=== PATIENT | female | born 1950 | race Caucasian/White ===

== ENCOUNTER 2016-08-07 13:43 | Outpatient (CLI) ==
--- NOTE | 2016-08-07 14:13 | DI ---
EXAM: Radiographs, left knee HISTORY: Initial presentation for left knee trauma. COMPARISON: 03/05/2016. TECHNIQUE: Four views. FINDINGS: Plate screw fixation along the lateral aspect of the femoral diaphysis are incompletely i sylvester. No acute fracture or dislocation identified. Mild osteoarthritic changes are present. Soft tissues are unremarkable. Since the prior study, there has been no significant interval change. IMPRESSION: No fracture or dislocation.
--- NOTE | 2016-08-07 14:14 | DI ---
EXAM: Two views of the left femur HISTORY: Fall with previous internal fixation hardware. COMPARISON: Left femur x-ray 05/22/2015 FINDINGS: Left hip arthroplasty hardware is stable with no signs of hardware fracture loosening. In ternal fixation hardware in the mid left femur is unchanged with no hardware fracture or loosening. There is mild degenerative disease of the left knee. There is no cortical irregularity or displace d fracture. Soft tissues are unremarkable. IMPRESSION: No acute abnormality or displaced fracture of the left femur with left hip arthroplasty and distal internal fixation hardware in place.
--- NOTE | 2016-08-07 14:15 | DI ---
EXAM: Left hip two-view HISTORY: Pain in left hip COMPARISON: 01/20/2016 FINDINGS: Left total hip arthroplasty. No fracture or dislocation. Left main femoral ORIF, incomp letely imaged. Sclerosis bilateral sacroiliac joints. No focal soft tissue abnormality. Atheroscl erosis. IMPERSSION: 1. Left hip arthroplasty. No fracture or dislocation. 2. Sclerosis about the bilateral sacroiliac joints, suggestive of sacroiliitis.
== END 2016-08-07 13:44 | disposition home or self-care (01) ==
LOC: RAD 13:43
PROVIDERS: ATTEND Nurse Practitioner Family
DX: M25.552 Pain in left hip (principal); M25.562 Pain in left knee; M79.605 Pain in left leg; W19.XXXA Unspecified fall, initial encounter; Z96.642 Presence of left artificial hip joint

== ENCOUNTER 2016-08-20 11:14 | Outpatient (CLI) ==
[2016-08-20 14:28] LABS: ALBUMIN 3.6 g/dL (3.4-5.0); ALBUMIN/GLOBULIN RATIO 0.86; ANION GAP 17.6; BILIRUBIN,TOTAL 0.24 mg/dL (0.00-1.20); BUN/CREATININE RATIO 15.18; CALCIUM 10.2 mg/dL (8.2-10.2); CREATININE 0.79 mg/dL (0.60-1.30); POTASSIUM 4.6 mmol/L (3.5-5.10); TOTAL PROTEIN 7.8 g/dL (5.8-8.1)
[2016-08-21 07:43] LABS: RHEUMATOID ARTHRITIS FACTOR < 10.0 IU/mL (0.0-13.9)
[2016-08-21 12:15] LABS: ANTI-NUCLEAR ANTIBODY SCREEN Negative (Negative)
== END 2016-08-20 11:15 | disposition home or self-care (01) ==
LOC: LAB 11:14
PROVIDERS: ATTEND Nurse Practitioner Family
DX: M25.50 Pain in unspecified joint (principal); E11.9 Type 2 diabetes mellitus without complications; I10 Essential (primary) hypertension; E78.5 Hyperlipidemia, unspecified
CPT/HCPCS: 36415; 80053; 80061; 83036; 86038; 86430

== ENCOUNTER 2017-01-08 14:28 | Outpatient (CLI) ==
[2017-01-08 14:56] LABS: BILIRUBIN,URINE Negative (NEGATIVE); KETONES,URINE Negative (NEGATIVE); LEUKOCYTE ESTERASE ,URINE 1+ (NEGATIVE); NITRITE,URINE Negative (NEGATIVE); PROTEIN,URINE Negative (NEGATIVE); URINE, BLOOD Trace-intact (NEGATIVE)
[2017-01-08 15:04] LABS: ADD URINE MICROSCOPIC YES
[2017-01-08 15:16] LABS: FLU INTERNAL QC INTERNAL QC VALID; RAPID FLU A NEGATIVE (NEGATIVE); RAPID FLU B NEGATIVE (NEGATIVE)
[2017-01-08 15:26] LABS: ALBUMIN 3.7 g/dL (3.4-5.0); ALBUMIN/GLOBULIN RATIO 0.93; ANION GAP 12.8; BILIRUBIN,TOTAL 0.29 mg/dL (0.00-1.20); BUN/CREATININE RATIO 19.23; CALCIUM 10.2 mg/dL (8.2-10.2); CHOL/HDL RATIO 4.9 (4.5-5.5); CREATININE 1.04 mg/dL (0.60-1.30); POTASSIUM 4.8 mmol/L (3.5-5.10); TOTAL PROTEIN 7.7 g/dL (5.8-8.1)
[2017-01-09 12:29] VITALS: BMI 29.4
== END 2017-01-08 14:29 | disposition home or self-care (01) ==
LOC: LAB 14:28
PROVIDERS: ATTEND Nurse Practitioner Family
DX: E78.5 Hyperlipidemia, unspecified (principal); E78.1 Pure hyperglyceridemia; R81 Glycosuria; E11.9 Type 2 diabetes mellitus without complications; R05 Cough; R50.9 Fever, unspecified
CPT/HCPCS: 36415; 80053; 80061; 81001; 82043; 83036; 87086; 87651; 87804; 87880

== ENCOUNTER 2017-01-09 12:09 | Inpatient (IN) ==
[2017-01-09 12:29] VITALS: BMI 29.4
[2017-01-09] MEDS ORDERED: TYLENOL PO PRN (12:35)
[2017-01-09] MEDS ORDERED: FLEXERIL PO PRN (12:37)
[2017-01-09] MEDS ORDERED: HUMULIN R ONE (12:46)
[2017-01-09] MEDS: SODIUM CHLORIDE 1,000 ML IV SCH (12:51)
--- NOTE | 2017-01-09 14:12 | DI ---
EXAM: CHEST FRONTAL VIEW HISTORY: Coughing. COMPARISON: None FINDINGS: Heart size and mediastinum within normal limits. Lungs are free of infiltrate. No co nsolidation or pleural fluid. There is no pneumothorax or acute bony finding. IMPRESSION: Findings within normal limits.
[2017-01-09] MEDS: DUONEB NEB SCH ×2 (14:44→22:35)
[2017-01-09] MEDS: LOVENOX SUBCUT SCH (15:20)
[2017-01-09] MEDS: HUMULIN R SUBCUT PRN ×3 (15:33→22:26)
[2017-01-09 16:26] LABS: BASOPHILS % (AUTO) 0.4 % (0.0-3.0); EOSINOPHILS # (AUTO) 0.3 K/ul (0.0-0.7); EOSINOPHILS % (AUTO) 3.6 % (0.0-7.0); HEMATOCRIT 33.7 % (37.0-47.0); HEMOGLOBIN 11.4 g/dl (12.0-16.0); IMMATURE GRANULOCYTE % (AUTO) 0.3 % (0.0-5.0); LYMPHOCYTES # (AUTO) 2.1 K/uL (0.60-3.4); LYMPHOCYTES % (AUTO) 30.8 (10.0-50.0); MEAN CORPUSCULAR HEMOGLOBIN 28.1 pg (27.0-31.0); MEAN CORPUSCULAR HGB CONC 33.8 (31.8-35.4); MEAN CORPUSCULAR VOLUME 83.2 fl (81.0-99.0); MONOCYTES # (AUTO) 0.5 K/uL (0.4-2.0); MONOCYTES % (AUTO) 6.8 (0-10); NEUTROPHILS % (AUTO) 58.1; PLATELET COUNT 247 10^3/uL (140-440); RED BLOOD COUNT 4.05 10^6/ul (4.20-5.40); WHITE BLOOD COUNT 6.89 K/ul (4.6-10.2)
[2017-01-09] MEDS: MOBIC PO SCH (16:42)
[2017-01-09] MEDS: GLUCOPHAGE PO SCH (16:42)
[2017-01-09 16:50] LABS: ALBUMIN 3.5 g/dL (3.4-5.0); ALBUMIN/GLOBULIN RATIO 0.9; ANION GAP 13.1; BILIRUBIN,TOTAL 0.22 mg/dL (0.00-1.20); BUN/CREATININE RATIO 25.88; CALCIUM 10.1 mg/dL (8.2-10.2); CREATININE 0.85 mg/dL (0.60-1.30); POTASSIUM 4.1 mmol/L (3.5-5.10); TOTAL PROTEIN 7.4 g/dL (5.8-8.1)
[2017-01-09] MEDS ORDERED: MELOXICAM 7.5 MG PO SCH (17:30)
[2017-01-09 18:37] LABS: BILIRUBIN,URINE Negative (NEGATIVE); KETONES,URINE Negative (NEGATIVE); LEUKOCYTE ESTERASE ,URINE 3+ (NEGATIVE); NITRITE,URINE Negative (NEGATIVE); PH,URINE 5.5 (5-9); PROTEIN,URINE Negative (NEGATIVE); URINE, BLOOD 1+ (NEGATIVE)
[2017-01-09 18:44] LABS: ADD URINE MICROSCOPIC YES; BACTERIA,URINE TRACE (NOT PRESENT)
[2017-01-09 19:17] LABS: TROPONIN I 0.013 ng/ml (0.0000-0.4000)
[2017-01-09] MEDS ORDERED: NON-FORMULARY MEDICATION (Metformin Hcl [Metformin Hcl] 1,000 MG) PO SCH ×22 (21:00)
[2017-01-10] MEDS ORDERED: DEXTROSE 50%-WATER ABBOJECT IVP STA (01:02)
[2017-01-10] MEDS: SODIUM CHLORIDE 1,000 ML IV SCH ×2 (02:07→14:33)
[2017-01-10] MEDS: HUMULIN R SUBCUT PRN ×5 (02:14→18:16)
[2017-01-10 03:25] LABS: CREATINE KINASE 182 U/L
[2017-01-10 03:45] LABS: CREATINE KINASE MB 7.5 ng/ml (0.0-3.6)
[2017-01-10] MEDS: DUONEB NEB SCH ×3 (04:46→22:43)
[2017-01-10 04:59] LABS: BASOPHILS % (AUTO) 0.5 % (0.0-3.0); EOSINOPHILS # (AUTO) 0.3 K/ul (0.0-0.7); HEMATOCRIT 30.9 % (37.0-47.0); HEMOGLOBIN 10.2 g/dl (12.0-16.0); IMMATURE GRANULOCYTE % (AUTO) 0.3 % (0.0-5.0); LYMPHOCYTES # (AUTO) 2.5 K/uL (0.60-3.4); LYMPHOCYTES % (AUTO) 39.2 (10.0-50.0); MEAN CORPUSCULAR HEMOGLOBIN 27.8 pg (27.0-31.0); MEAN CORPUSCULAR VOLUME 84.2 fl (81.0-99.0); MONOCYTES # (AUTO) 0.5 K/uL (0.4-2.0); MONOCYTES % (AUTO) 7.8 (0-10); NEUTROPHILS % (AUTO) 47.2; PLATELET COUNT 234 10^3/uL (140-440); RED BLOOD COUNT 3.67 10^6/ul (4.20-5.40); WHITE BLOOD COUNT 6.25 K/ul (4.6-10.2)
[2017-01-10 05:18] LABS: ALBUMIN 3.1 g/dL (3.4-5.0); ANION GAP 12.5; BILIRUBIN,TOTAL 0.21 mg/dL (0.00-1.20); BUN/CREATININE RATIO 27.02; CALCIUM 9.1 mg/dL (8.2-10.2); CREATININE 0.74 mg/dL (0.60-1.30); POTASSIUM 4.5 mmol/L (3.5-5.10); TOTAL PROTEIN 6.2 g/dL (5.8-8.1)
[2017-01-10] MEDS ORDERED: NON-FORMULARY MEDICATION (Fluticasone Propionate [Flonase Allergy Relief] 2 SPRAY) NS SCH (09:00)
[2017-01-10] MEDS: GLUCOPHAGE PO SCH ×2 (09:00→18:17)
[2017-01-10] MEDS: FLONASE NAS SCH (09:00)
[2017-01-10] MEDS ORDERED: NON-FORMULARY MEDICATION (Lisinopril [Lisinopril] 30 MG) PO SCH (09:00)
[2017-01-10] MEDS: LIPITOR PO SCH (09:01)
[2017-01-10] MEDS: ZESTRIL PO SCH (09:01)
[2017-01-10] MEDS: NORVASC PO SCH (09:01)
[2017-01-10] MEDS: MOBIC PO SCH ×2 (09:01→18:18)
[2017-01-10] MEDS: LOVENOX SUBCUT SCH (09:03)
[2017-01-10] MEDS ORDERED: ROCEPHIN ONE (14:19)
[2017-01-10] MEDS: ROCEPHIN 1 GM in SODIUM CHLORIDE 50 ML IV SCH (14:27)
[2017-01-10] MEDS: JANUVIA PO SCH (14:27)
[2017-01-11] MEDS: HUMULIN R SUBCUT PRN ×6 (02:44→21:19)
[2017-01-11] MEDS: DUONEB NEB SCH ×3 (04:50→22:30)
[2017-01-11 05:12] LABS: BASOPHILS % (AUTO) 0.5 % (0.0-3.0); EOSINOPHILS # (AUTO) 0.3 K/ul (0.0-0.7); EOSINOPHILS % (AUTO) 4.7 % (0.0-7.0); HEMATOCRIT 30.9 % (37.0-47.0); HEMOGLOBIN 10.4 g/dl (12.0-16.0); IMMATURE GRANULOCYTE % (AUTO) 0.5 % (0.0-5.0); LYMPHOCYTES # (AUTO) 2.6 K/uL (0.60-3.4); LYMPHOCYTES % (AUTO) 40.9 (10.0-50.0); MEAN CORPUSCULAR HEMOGLOBIN 28.5 pg (27.0-31.0); MEAN CORPUSCULAR HGB CONC 33.7 (31.8-35.4); MEAN CORPUSCULAR VOLUME 84.7 fl (81.0-99.0); MONOCYTES # (AUTO) 0.5 K/uL (0.4-2.0); MONOCYTES % (AUTO) 8.5 (0-10); NEUTROPHILS # (AUTO) 2.8 K/ul (2.0-6.9); NEUTROPHILS % (AUTO) 44.9; PLATELET COUNT 222 10^3/uL (140-440); RED BLOOD COUNT 3.65 10^6/ul (4.20-5.40); WHITE BLOOD COUNT 6.23 K/ul (4.6-10.2)
[2017-01-11 05:29] LABS: ALBUMIN/GLOBULIN RATIO 0.91; ANION GAP 11.6; BILIRUBIN,TOTAL 0.16 mg/dL (0.00-1.20); BUN/CREATININE RATIO 19.11; CALCIUM 9.3 mg/dL (8.2-10.2); CREATININE 0.68 mg/dL (0.60-1.30); POTASSIUM 4.6 mmol/L (3.5-5.10); TOTAL PROTEIN 6.3 g/dL (5.8-8.1)
[2017-01-11] MEDS: GLUCOPHAGE PO SCH ×2 (07:59→16:50)
[2017-01-11] MEDS: LIPITOR PO SCH (07:59)
[2017-01-11] MEDS: ROCEPHIN 1 GM in SODIUM CHLORIDE 50 ML IV SCH (07:59)
[2017-01-11] MEDS: LOVENOX SUBCUT SCH (07:59)
[2017-01-11] MEDS: MOBIC PO SCH ×2 (08:00→16:50)
[2017-01-11] MEDS: NORVASC PO SCH (08:00)
[2017-01-11] MEDS: FLONASE NAS SCH (08:00)
[2017-01-11] MEDS: JANUVIA PO SCH (08:00)
[2017-01-11] MEDS: ZESTRIL PO SCH (08:00)
[2017-01-11] MEDS ORDERED: LANTUS SUBCUT SCH (21:00)
[2017-01-11] MEDS: SODIUM CHLORIDE 1,000 ML IV SCH (23:21)
[2017-01-12] MEDS: HUMULIN R SUBCUT PRN ×2 (02:22→06:39)
[2017-01-12] MEDS: DUONEB NEB SCH (04:50)
[2017-01-12 05:08] LABS: BASOPHILS % (AUTO) 0.5 % (0.0-3.0); EOSINOPHILS # (AUTO) 0.4 K/ul (0.0-0.7); HEMATOCRIT 30.7 % (37.0-47.0); IMMATURE GRANULOCYTE % (AUTO) 0.7 % (0.0-5.0); LYMPHOCYTES # (AUTO) 2.3 K/uL (0.60-3.4); LYMPHOCYTES % (AUTO) 36.9 (10.0-50.0); MEAN CORPUSCULAR HGB CONC 32.6 (31.8-35.4); MONOCYTES # (AUTO) 0.5 K/uL (0.4-2.0); NEUTROPHILS # (AUTO) 2.9 K/ul (2.0-6.9); NEUTROPHILS % (AUTO) 47.9; PLATELET COUNT 216 10^3/uL (140-440); RED BLOOD COUNT 3.57 10^6/ul (4.20-5.40); WHITE BLOOD COUNT 6.13 K/ul (4.6-10.2)
[2017-01-12 05:27] LABS: ALBUMIN 2.8 g/dL (3.4-5.0); ALBUMIN/GLOBULIN RATIO 0.88; ANION GAP 13.6; BILIRUBIN,TOTAL 0.18 mg/dL (0.00-1.20); BUN/CREATININE RATIO 16.9; CALCIUM 9.5 mg/dL (8.2-10.2); CREATININE 0.71 mg/dL (0.60-1.30); POTASSIUM 4.6 mmol/L (3.5-5.10)
[2017-01-12 06:25] VITALS: BP 119/80; TEMP 98
[2017-01-12] MEDS: ROCEPHIN 1 GM in SODIUM CHLORIDE 50 ML IV SCH (08:38)
[2017-01-12] MEDS: NORVASC PO SCH (08:40)
[2017-01-12] MEDS: GLUCOPHAGE PO SCH (08:40)
[2017-01-12] MEDS: FLONASE NAS SCH (08:40)
[2017-01-12] MEDS: ZESTRIL PO SCH (08:40)
[2017-01-12] MEDS: JANUVIA PO SCH (08:40)
[2017-01-12] MEDS: MOBIC PO SCH (08:40)
[2017-01-12] MEDS: LIPITOR PO SCH (08:40)
[2017-01-12] MEDS: LOVENOX SUBCUT SCH (08:41)
--- NOTE | 2017-01-12 13:34 | PN ---
DATE OF SERVICE: 01/10/17 SUBJECTIVE: The patient was admitted with the hyperosmolar hyperglycemia. The patient is on coverage with the regular insulin. The patient has Metformin 1000mg twice a day and sugars are still in 300's. The patient's daughter in the room has concerns. The patient's recent A1c was 14.4. REVIEW OF SYSTEMS: CONSTITUTIONAL: No fever, no chills. HEENT: Normal. ENDOCRINE: No weight gain, no weight loss. CVS: No angina symptoms. No CHF symptoms. No palpitations. No atypical chest pain for CAD. No shortness of breath. No PND, no orthopnea. RESPIRATORY: Coughing and congestion a lot better. no hemoptysis. GI: No nausea, no vomiting. No abdominal pain. : No hematuria. No polyuria. MUSCULOSKELETAL:. No joint swelling. PSYCHIATRIC: Not anxious. No depression. No suicidal thoughts. No homicidal thoughts. SKIN: Intact. No rash. PHYSICAL EXAMINATION: V/S: blood pressure 111/65, respiratory rate 18, heart rate 75, temperature 98.2 and saturation 97%. HEENT: Normocephalic, atraumatic. Mucosa dry. Pallor positive. No icterus. NECK: Supple. No JVD, no carotid bruit. No lymphadenopathy. LUNGS: Decreased and clear to auscultation. No rales or rhonchi. HEART: S1, S2 normal. No S3. No murmur, gallop or regurgitation. ABDOMEN: Soft, nontender. Bowel sounds active. No rigidity. No rebound or guarding. No CVA tenderness. EXTREMITIES: No clubbing, cyanosis or pedal edema. MUSCULOSKELETAL: No joint swelling. Intact. NEUROLOGIC: Awake, alert, oriented times three. No focal deficit. LYMPHATIC: No lymph nodes palpable. SKIN: Intact. Dry. LABS: WBC 6.25, hgb 10.2, hct 30.9, plt count 234, sodium 132, potassium 4.5, chloride 99, bicarb 25, BUN 20, creatinine 0.76, glucose 255 ASSESSMENT: 1. Hyperosmolar hyperglycemia 2. Hyponatremia secondary to the hyperglycemia 3. Elevated CK-MB 4. Urinary tract infection 5. Diabetes non-controlled with A1c 14.4 6. Dyslipidemia 7. Osteoarthritis PLAN: 1. Will add Januvia 100mg PO daily 2. Talked about the possibilities of going onto the insulin in review of A1c being 14.1 and the patient verbalized understanding. 3. Diabetic diet been discussed. TIME SPENT: More than 35 minutes MTDD
--- NOTE | 2017-01-12 14:01 | PN ---
DATE OF SERVICE: 01/11/17 SUBJECTIVE: The patient was admitted with the hyperosmolar hyperglycemia. The patient was started on Januvia and sugars are not 211 and 213 and 250. The patient is feeling better. More energy. REVIEW OF SYSTEMS: CONSTITUTIONAL: No fever, no chills. HEENT: Normal. ENDOCRINE: No weight gain, no weight loss. CVS: No angina symptoms. No CHF symptoms. No palpitations. No atypical chest pain for CAD. No shortness of breath. No PND, no orthopnea. RESPIRATORY: No cough, no hemoptysis. GI: No nausea, no vomiting. No abdominal pain. : No hematuria. No polyuria. MUSCULOSKELETAL:. No joint swelling. PSYCHIATRIC: Not anxious. No depression. No suicidal thoughts. No homicidal thoughts. SKIN: Intact. No rash. PHYSICAL EXAMINATION: V/S: Blood pressure 132/77, respiratory rate 18, heart rate 95, temperature 98. HEENT: Normocephalic, atraumatic. Mucosa dry. Pallor positive. No icterus. NECK: Supple. No JVD, no carotid bruit. No lymphadenopathy. LUNGS: Clear to auscultation. No rales or rhonchi. HEART: S1, S2 normal. No S3. No murmur, gallop or regurgitation. ABDOMEN: Soft, nontender. Bowel sounds active. No rigidity. No rebound or guarding. No CVA tenderness. EXTREMITIES: No clubbing, cyanosis or pedal edema. MUSCULOSKELETAL: No joint swelling. NEUROLOGIC: Awake, alert, oriented times three. No focal deficit. LYMPHATIC: No lymph nodes palpable. SKIN: Intact. LABS: WBC 6.23, hgb 10.4, hct 30.9, plt count 222, sodium 137, potassium 4.6, chloride 106, bicarb 24, BUN 13 and creatinine 0.68. ASSESSMENT: 1. Hyperosmolar hyperglycemia, improving 2. Hyponatremia, better 3. Anemia stable 4. Elevated CK's 5. Upper respiratory infection 6. Dyslipidemia 7. Osteoarthritis 8. Depression 9. Anxiety PLAN: 1. Continue the Metformin and Januvia 2. Accu-checks with coverage 3. Diet and Low Carb diet been discussed and verbalized understanding. TIME SPENT: More than 35 minutes MTDD
--- NOTE | 2017-01-29 14:41 | DS ---
DATE OF SERVICE: 01/12/17 FINAL DIAGNOSIS: 1. ACUTE HYPEROSMOLAR/HYPERGLYCEMIA 2. DIABETES MELLITUS, UNCONTROLLED WITH A1C 13 3. DYSLIPIDEMIA 4. HYPONATREMIA SECONDARY TO HYPERGLYCEMIA 5. ANEMIA, STABLE 6. ELEVATED CK 7. UPPER RESPIRATORY INFECTION 8. DYSLIPIDEMIA 9. OSTEOARTHRITIS 10. DEPRESSION 11. ANXIETY DISCHARGE INSTRUCTIONS: Discharge the patient home. MEDICATIONS AT DISCHARGE: Norvasc Atorvastatin Cyclobenzeprine Flonase Meloxicam NEW PRESCRIPTIONS: Januvia 100 mg twice a day Continue Metformin 1000 mg b.i.d. Will add Lantus 10 units SubQ at bedtime Accu-Cheks 2 to 3 times a day; Hypoglycemia has been discussed DIET INSTRUCTIONS: 1800 ADA diet ACTIVITY: As much as tolerated SMOKING: N/A DISEASE SPECIFIC EDUCATION: Diabetes DKA Hyperosmolar discussed; Anemia needing colonoscopy has been discussed with the patient in detail. HOSPITAL COURSE: This is a 66-year-old female was seen by Ranjana Solis as outpatient and performed some blood work. With the diabetes, the patient came to [facility]jana Solis with weakness, coughing and congestion. At that time, sugars were 520 and A1C was 13.2. By the next day, the patient was feeling worse, not able to be by herself, worried about diabetes and getting into DKA, came to the office. At that time, the patient was a direct admission. Will continue her home medications, start IV fluids, Accu-Check with coverage started. She was 297, 255 then Januvia 100 was started. The patient's sugars came down to 220s. With the A1C of 13.2, the patient was instructed that insulin would be a better option for the patient at the given time. She verbalized understanding. Lantus 1200 units at nighttime was started. Diet education was given. Insulin management has been given. The patient's hospital stay was uneventful. CK-MB was 11.0 and 7.4, did not have any problems. Hemoglobin was steady. Urine negative for any infection. As the patient's sugars are getting better and the patient is up and about walking, did not have any problems. At that time, she is discharged home. TIME SPENT: MORE THAN 70 MINUTES MTDD
== END 2017-01-12 12:45 | disposition home or self-care (01) | DRG 641 ==
LOC: SCU 12:09
PROVIDERS: ADMIT Emergency Medicine; ATTEND Emergency Medicine
DX: E87.0 Hyperosmolality and hypernatremia (principal); N39.0 Urinary tract infection, site not specified; M19.90 Unspecified osteoarthritis, unspecified site; E11.65 Type 2 diabetes mellitus with hyperglycemia; E78.5 Hyperlipidemia, unspecified; D64.9 Anemia, unspecified; R74.8 Abnormal levels of other serum enzymes; J06.9 Acute upper respiratory infection, unspecified; F41.8 Other specified anxiety disorders; Z79.84 Long term (current) use of oral hypoglycemic drugs; Z79.899 Other long term (current) drug therapy
CPT/HCPCS: 36415; 80053; 81001; 82550; 82553; 82962; 84484; 85025; 87086; 93005; 93010; 94640

== ENCOUNTER 2017-05-15 10:21 | Outpatient (CLI) ==
--- NOTE | 2017-05-15 12:57 | DI ---
EXAM: Three views of the left ribs. History: Left rib pain and trauma. Comparison: Chest radiograph 01/09/2017 Findings: Heart is mildly enlarged. Calcified granuloma again seen within the left lung. No left p leural effusion and no left-sided pneumothorax. No acute displaced left-sided rib fractures. Impression: 1. No rib fractures. 2. Mild cardiomegaly
== END 2017-05-15 10:22 | disposition home or self-care (01) ==
LOC: RAD 10:21
PROVIDERS: ATTEND Emergency Medicine
DX: R07.81 Pleurodynia (principal)

== ENCOUNTER 2017-06-24 15:58 | Outpatient (CLI) | END 2017-06-24 15:59 | disposition home or self-care (01) | LOC: RHC-LAB 15:58 | PROVIDERS: ATTEND Emergency Medicine | DX: E11.9 Type 2 diabetes mellitus without complications (principal); E78.5 Hyperlipidemia, unspecified; I10 Essential (primary) hypertension | CPT/HCPCS: 36415; 80053; 80061; 83036; 84443; 85025 ==

== ENCOUNTER 2017-09-08 16:59 | Inpatient (IN) | payer OTHER ==
[2017-09-08] MEDS ORDERED: BOOSTRIX IM ONE (17:52)
[2017-09-08] MEDS ORDERED: VANCOMYCIN 1 GM in SODIUM CHLORIDE 250 ML IV SCH (18:00)
[2017-09-08] MEDS ORDERED: ROCEPHIN 1 GM in SODIUM CHLORIDE 50 ML IV SCH (18:00)
[2017-09-08 18:24] VITALS: BMI 26.2
[2017-09-08] MEDS: SODIUM CHLORIDE 1,000 ML IV SCH (19:26)
--- NOTE | 2017-09-08 20:40 | CT ---
EXAM: CT of the left lower extremity without contrast History: Puncture wound of the left lower extremity. Technique: Multiplanar CT images through the left foot were obtained without the administration of I V contrast Findings: No acute fracture or dislocation. Atherosclerotic vascular calcifications. Moderate calc aneal enthesiopathy. Ossification is seen along the course of the proximal plantar fascia consistent with chronic plantar fasciitis. Mild to moderate degenerative changes at the tibiotalar joint with subchondral cysts within the lateral talar dome. There is no subchondral collapse. Hypertrophic oss eous changes of the medial and lateral malleolus. Moderate degenerative changes at the mid foot with a few small osteophytes. Soft tissue swelling and multifocal lacerations with soft tissue air are seen along the anterior plan tar aspect of the foot. Tiny punctate 1 mm radiodensity seen just beneath the plantar skin surface a t the level of the third proximal phalanx. Evaluation for abscess is limited due to the lack of cont rast administration. Impression: 1. Anterior plantar soft tissue swelling with multifocal lacerations. Findings are likely related to trauma but cannot exclude a developing deep soft tissue infection and close clinical follow-up is rec ommended. 2. Question tiny 1 mm retained foreign body within the plantar soft tissues just beneath the skin at the level of the third proximal phalanx. 3. Degenerative changes. 4. Atherosclerotic vascular disease. 5. Chronic plantar fasciitis and calcaneal enthesiopathy.
[2017-09-08] MEDS ORDERED: FLEXERIL PO PRN (20:58)
[2017-09-08] MEDS ORDERED: INSULIN GLARGINE HUM REC ANLOG 10 UNIT SQ SCH (21:00)
[2017-09-09] MEDS ORDERED: MELOXICAM 7.5 MG PO SCH (08:00)
[2017-09-09] MEDS: LOVENOX SUBCUT SCH (08:48)
[2017-09-09] MEDS: VANCOMYCIN 1 GM in SODIUM CHLORIDE 250 ML IV SCH ×2 (08:48→21:50)
[2017-09-09] MEDS: MOBIC PO SCH ×2 (08:49→16:47)
[2017-09-09] MEDS: JARDIANCE PO SCH (08:50)
[2017-09-09] MEDS: ZESTRIL PO SCH (08:51)
[2017-09-09] MEDS: NORVASC PO SCH (08:51)
[2017-09-09] MEDS: JANUVIA PO SCH (08:59)
[2017-09-09] MEDS ORDERED: JANUVIA PO SCH (09:00)
[2017-09-09] MEDS ORDERED: NON-FORMULARY MEDICATION (Empagliflozin [Jardiance] 25 MG) PO SCH (09:00)
[2017-09-09] MEDS ORDERED: NON-FORMULARY MEDICATION (Sitagliptin Phosphate [Januvia] 100 MG) PO SCH (09:00)
[2017-09-09] MEDS ORDERED: NON-FORMULARY MEDICATION (Metformin Hcl [Metformin Hcl] 1,000 MG) PO SCH (11:00)
[2017-09-09] MEDS: SODIUM CHLORIDE 1,000 ML IV SCH ×2 (16:34→23:15)
[2017-09-09] MEDS: GLUCOPHAGE PO SCH (16:47)
[2017-09-09] MEDS: LANTUS SUBCUT SCH (20:41)
[2017-09-09] MEDS: LIPITOR PO SCH (20:41)
[2017-09-09] MEDS ORDERED: ROCEPHIN 1 GM in SODIUM CHLORIDE 50 ML IV SCH (21:00)
[2017-09-10] MEDS: JARDIANCE PO SCH (08:04)
[2017-09-10] MEDS: VANCOMYCIN 1 GM in SODIUM CHLORIDE 250 ML IV SCH ×2 (08:04→22:50)
[2017-09-10] MEDS: JANUVIA PO SCH (08:04)
[2017-09-10] MEDS: ZESTRIL PO SCH (08:06)
[2017-09-10] MEDS: NORVASC PO SCH (08:06)
[2017-09-10] MEDS: MOBIC PO SCH ×2 (08:06→17:00)
[2017-09-10] MEDS: LOVENOX SUBCUT SCH (08:06)
--- NOTE | 2017-09-10 12:17 | DI ---
EXAM: Left foot three views HISTORY: Puncture wound COMPARISON: CT scan left foot 09/08/2017 FINDINGS: There is no acute fracture or dislocation.. There are moderate sized plantar retrocalcane al spurs. Degenerative changes are noted at the level of the ankle joint. Degenerative changes also noted about the tibiotalar joint.. Redemonstrated is soft tissue swelling along the anterior planta r margin with likely ulceration/laceration. Soft tissue heterotopic bone is seen inferior to the ant erior calcaneus. IMPRESSION: Redemonstrated is soft tissue swelling with ulceration/laceration along the anterior plantar margin. Extensive degenerative changes as described. ASVD.
[2017-09-10] MEDS: SODIUM CHLORIDE 1,000 ML IV SCH (13:56)
[2017-09-10] MEDS: GLUCOPHAGE PO SCH (14:35)
[2017-09-10] MEDS: FLAGYL PO SCH (21:38)
[2017-09-10] MEDS: LANTUS SUBCUT SCH (21:38)
[2017-09-10] MEDS: LIPITOR PO SCH (21:38)
[2017-09-10] MEDS: MAXIPIME 2 GM in SODIUM CHLORIDE 100 ML IV SCH (21:38)
[2017-09-11] MEDS: FLAGYL PO SCH ×3 (04:28→21:05)
[2017-09-11] MEDS: FLORASTOR PO SCH ×2 (09:47→21:05)
[2017-09-11] MEDS: MAXIPIME 2 GM in SODIUM CHLORIDE 100 ML IV SCH ×2 (09:47→20:59)
[2017-09-11] MEDS: JARDIANCE PO SCH (09:47)
[2017-09-11] MEDS: MOBIC PO SCH ×2 (09:48→18:05)
[2017-09-11] MEDS: NORVASC PO SCH (09:48)
[2017-09-11] MEDS: JANUVIA PO SCH (09:49)
[2017-09-11] MEDS: LOVENOX SUBCUT SCH (09:49)
[2017-09-11] MEDS: ZESTRIL PO SCH (09:49)
[2017-09-11] MEDS: VANCOMYCIN 1 GM in SODIUM CHLORIDE 250 ML IV SCH ×2 (11:29→22:24)
[2017-09-11] MEDS: GLUCOPHAGE PO SCH (15:30)
[2017-09-11] MEDS: SODIUM CHLORIDE 1,000 ML IV SCH (15:32)
--- NOTE | 2017-09-11 15:55 | PN ---
DATE OF SERVICE: 09/09/17 SUBJECTIVE: The patient was admitted with the left foot open wound with drainage and puss. She has been getting Rocephin and IV antibiotics. CT of the foot did not show any osteomyelitis. ESR is 85. Still has the left foot swelling and redness. REVIEW OF SYSTEMS: CONSTITUTIONAL: No fever, no chills. HEENT: Normal. ENDOCRINE: No weight gain, no weight loss. CVS: No angina symptoms. No CHF symptoms. No palpitations. No atypical chest pain for CAD. No shortness of breath. No PND, no orthopnea. RESPIRATORY: No cough, no hemoptysis. GI: No nausea, no vomiting. No abdominal pain. : No hematuria. No polyuria. MUSCULOSKELETAL: No joint swelling. PSYCHIATRIC: Not anxious. No depression. No suicidal thoughts. No homicidal thoughts. SKIN: Intact. No rash. PHYSICAL EXAMINATION: V/S: Blood pressure 117/63, respiratory rate 18, heart rate 80, temperature 98.3 with saturation 95%. HEENT: Normocephalic, atraumatic. Mucosa dry. Pallor positive. No icterus. NECK: Supple. No JVD, no carotid bruit. No lymphadenopathy. LUNGS: Clear to auscultation. No rales or rhonchi. HEART: S1, S2 normal. No S3. No murmur, gallop or regurgitation. ABDOMEN: Soft, nontender. Bowel sounds active. No rigidity. No rebound or guarding. No CVA tenderness. EXTREMITIES: No cyanosis, clubbing or pedal edema. Left foot open area almost 7cm deep. Puss is coming, dorsum of the foot is red and tenderness. Pulses are 2 +. MUSCULOSKELETAL: No joint swelling. NEUROLOGIC: Awake, alert, oriented times three. No focal deficit. LYMPHATIC: No lymph nodes palpable. SKIN: Intact. LABS: WBC 7.83, hgb 9.0, hct 27.3, plt count 301, sodium 138, potassium 4.1, chloride 108, bicarb 24, BUN 11, creatinine 0.60 and glucose 109. ASSESSMENT: 1. Left foot cellulitis with open wound, puncture wound from the broke glass, Dipth is given Cultures show heavy gram negative and gram positive. 2. History of diabetes 3. Hypertension PLAN: 1. Continue Rocephin, Vancomycin 2. Followup with culture and sensitivity 3. Keep the legs elevated. 4. Wet to dry dressing 5. Accu-checks with coverage. TIME SPENT: More than 35 minutes MTDD
[2017-09-11] MEDS: LIPITOR PO SCH (21:05)
[2017-09-11] MEDS: LANTUS SUBCUT SCH (21:06)
[2017-09-12] MEDS: TYLENOL PO PRN ×2 (05:12→21:52)
[2017-09-12] MEDS: FLAGYL PO SCH ×3 (05:13→20:14)
[2017-09-12] MEDS: NORVASC PO SCH (08:53)
[2017-09-12] MEDS: ZESTRIL PO SCH (08:53)
[2017-09-12] MEDS: JANUVIA PO SCH (08:53)
[2017-09-12] MEDS: FLORASTOR PO SCH ×2 (08:53→20:14)
[2017-09-12] MEDS: MOBIC PO SCH ×2 (08:53→17:23)
[2017-09-12] MEDS: JARDIANCE PO SCH (08:53)
[2017-09-12] MEDS: VANCOMYCIN 1 GM in SODIUM CHLORIDE 250 ML IV SCH ×2 (08:54→21:53)
[2017-09-12] MEDS: LOVENOX SUBCUT SCH (08:54)
[2017-09-12] MEDS: MAXIPIME 2 GM in SODIUM CHLORIDE 100 ML IV SCH ×2 (10:40→20:14)
[2017-09-12] MEDS: GLUCOPHAGE PO SCH (12:58)
[2017-09-12] MEDS: LIPITOR PO SCH (20:14)
[2017-09-12] MEDS: LANTUS SUBCUT SCH (20:16)
[2017-09-13] MEDS: FLAGYL PO SCH ×3 (04:06→20:24)
[2017-09-13] MEDS: VANCOMYCIN 1 GM in SODIUM CHLORIDE 250 ML IV SCH ×2 (08:24→22:02)
[2017-09-13] MEDS: LOVENOX SUBCUT SCH (08:24)
[2017-09-13] MEDS: NORVASC PO SCH (08:25)
[2017-09-13] MEDS: MOBIC PO SCH ×2 (08:25→16:30)
[2017-09-13] MEDS: JARDIANCE PO SCH (08:25)
[2017-09-13] MEDS: FLORASTOR PO SCH ×2 (08:25→20:24)
[2017-09-13] MEDS: ZESTRIL PO SCH (08:25)
[2017-09-13] MEDS: JANUVIA PO SCH (08:25)
[2017-09-13] MEDS: GLUCOPHAGE PO SCH (11:40)
[2017-09-13] MEDS: MAXIPIME 2 GM in SODIUM CHLORIDE 100 ML IV SCH ×2 (12:23→20:17)
[2017-09-13] MEDS: LIPITOR PO SCH (20:23)
[2017-09-13] MEDS: LANTUS SUBCUT SCH (20:24)
[2017-09-14] MEDS: FLAGYL PO SCH ×3 (04:19→20:06)
--- NOTE | 2017-09-14 08:38 | DI ---
EXAM: Left foot three views HISTORY: Laceration COMPARISON: 09/10/2017 FINDINGS: Redemonstration of soft tissue swelling along anterior plantar are margin with likely lace ration/ulceration. No fracture or dislocation. Calcifications or ossifications in the soft tissues anterior to the calcaneus. Moderate plantar calcaneal spur and small moderate posterior calcaneal s pur. Mild to moderate osteoarthritis midfoot. Mild osteoarthritis first MTP joint. Degenerative ch anges about the ankle. Atherosclerotic vascular calcification. IMPERSSION: 1. No fracture or dislocation. 2. IRedemonstration of soft tissue swelling along anterior plantar are margin with likely laceration /ulceration. 3. Chronic and degenerative changes as described.
[2017-09-14] MEDS: JARDIANCE PO SCH (08:48)
[2017-09-14] MEDS: MOBIC PO SCH ×2 (08:49→17:27)
[2017-09-14] MEDS: NORVASC PO SCH (08:49)
[2017-09-14] MEDS: ZESTRIL PO SCH (08:49)
[2017-09-14] MEDS: JANUVIA PO SCH (08:50)
[2017-09-14] MEDS: FLORASTOR PO SCH ×2 (08:51→20:06)
[2017-09-14] MEDS: LOVENOX SUBCUT SCH (08:52)
[2017-09-14] MEDS: VANCOMYCIN 1 GM in SODIUM CHLORIDE 250 ML IV SCH ×2 (09:03→21:43)
[2017-09-14] MEDS: MAXIPIME 2 GM in SODIUM CHLORIDE 100 ML IV SCH ×2 (11:29→20:06)
[2017-09-14] MEDS: GLUCOPHAGE PO SCH (13:20)
[2017-09-14] MEDS: LIPITOR PO SCH (20:05)
[2017-09-14] MEDS: LANTUS SUBCUT SCH (21:43)
[2017-09-15] MEDS: FLAGYL PO SCH ×3 (05:29→21:54)
[2017-09-15] MEDS: LOVENOX SUBCUT SCH (08:44)
[2017-09-15] MEDS: ZESTRIL PO SCH (08:45)
[2017-09-15] MEDS: MAXIPIME 2 GM in SODIUM CHLORIDE 100 ML IV SCH ×2 (08:45→21:52)
[2017-09-15] MEDS: MOBIC PO SCH ×2 (08:45→16:56)
[2017-09-15] MEDS: NORVASC PO SCH (08:45)
[2017-09-15] MEDS: JANUVIA PO SCH (08:45)
[2017-09-15] MEDS: FLORASTOR PO SCH ×2 (08:45→21:54)
[2017-09-15] MEDS: JARDIANCE PO SCH (08:45)
[2017-09-15] MEDS: VANCOMYCIN 1 GM in SODIUM CHLORIDE 250 ML IV SCH (10:42)
[2017-09-15] MEDS: GLUCOPHAGE PO SCH (12:16)
--- NOTE | 2017-09-15 14:42 | PN ---
DATE OF SERVICE: 09/14/17 SUBJECTIVE: The patient was admitted with the left foot puncture wound and abscess. The wound in still draining, grown Citrobacter and gram positive cocci which is unidentified. The patient is getting the two antibiotics and the second wound is almost healed and dry. The patient is active and up and about walking. REVIEW OF SYSTEMS: CONSTITUTIONAL: No fever, no chills. HEENT: Normal. ENDOCRINE: No weight gain, no weight loss. CVS: No angina symptoms. No CHF symptoms. No palpitations. No atypical chest pain for CAD. No shortness of breath. No PND, no orthopnea. RESPIRATORY: No cough, no hemoptysis. GI: No nausea, no vomiting. No abdominal pain. : No hematuria. No polyuria. MUSCULOSKELETAL: No joint swelling. PSYCHIATRIC: Not anxious. No depression. No suicidal thoughts. No homicidal thoughts. SKIN: Intact. No rash. PHYSICAL EXAMINATION: V/S: Blood pressure 141/78, respiratory rate 24, heart rate 68, temperature 98.9 with saturation is 98. HEENT: Normocephalic, atraumatic. Mucosa dry. Pallor positive. No icterus. NECK: Supple. No JVD, no carotid bruit. No lymphadenopathy. LUNGS: Clear to auscultation. No rales or rhonchi. HEART: S1, S2 normal. No S3. No murmur, gallop or regurgitation. ABDOMEN: Soft, nontender. Bowel sounds active. No rigidity. No rebound or guarding. No CVA tenderness. EXTREMITIES: No cyanosis, clubbing or pedal edema. Left foot wound number 1 7cm still draining plus tender to touch and #2 2-3cm with dry bases on the left and on the right foot there is a callus which is healing healthy. MUSCULOSKELETAL: No joint swelling. NEUROLOGIC: Awake, alert, oriented times three. No focal deficit. LYMPHATIC: No lymph nodes palpable. SKIN: Intact. LABS: WBC 6.73, hgb 9.6, hct 29.9, plt count 356, sodium 139, potassium 4.1, chloride 108, bicarb 23, BUN 16, creatinine 0.64 and glucose 98. ASSESSMENT: 1. Left foot puncture wound which grew unidentified organism and Citrobacter Koseri. 2. Anemia 3. Diabetes 4. Hypertension 5. Dyslipidemia 6. Osteoarthritis 7. Noncompliance with medication PLAN: 1. Accu-checks with coverage 2. Continue the Vancomycin 3. Lovenox 4. Cefepime TIME SPENT: More than 35 minutes MTDD
--- NOTE | 2017-09-15 14:55 | PN ---
DATE OF SERVICE: 09/10/17 SUBJECTIVE: The patient was admitted with left foot open wound. Swelling and redness is a lot better. It is growing the gram positive Cocci and gram negative rods and getting IV Rocephin and Vancomycin. The patient is up and about walking. REVIEW OF SYSTEMS: CONSTITUTIONAL: No fever, no chills. HEENT: Normal. ENDOCRINE: No weight gain, no weight loss. CVS: No angina symptoms. No CHF symptoms. No palpitations. No atypical chest pain for CAD. No shortness of breath. No PND, no orthopnea. RESPIRATORY: No cough, no hemoptysis. GI: No nausea, no vomiting. No abdominal pain. : No hematuria. No polyuria. MUSCULOSKELETAL: No joint swelling. PSYCHIATRIC: Not anxious. No depression. No suicidal thoughts. No homicidal thoughts. SKIN: Intact. No rash. PHYSICAL EXAMINATION: V/S: Blood pressure 113/83, respiratory rate 16, heart rate 67, temperature 98.2 with saturation 97%. HEENT: Normocephalic, atraumatic. Mucosa dry. Pallor positive. No icterus. NECK: Supple. No JVD, no carotid bruit. No lymphadenopathy. LUNGS: Clear to auscultation. No rales or rhonchi. HEART: S1, S2 normal. No S3. No murmur, gallop or regurgitation. ABDOMEN: Soft, nontender. Bowel sounds active. No rigidity. No rebound or guarding. No CVA tenderness. EXTREMITIES: No cyanosis, clubbing or pedal edema. Left dorsum of the foot second and third toe fingers less swollen, still red and the wound 7cm when we try to squeeze the wound still draining the puss lots of amount. MUSCULOSKELETAL: No joint swelling. NEUROLOGIC: Awake, alert, oriented times three. No focal deficit. LYMPHATIC: No lymph nodes palpable. SKIN: Intact. LABS: Sodium 139, potassium 3.9, chloride 108, Bicarb 24, BUN 12, creatinine 0.61 and glucose 98%. WBC 6.48, hgb 9.1, hct 28.2, plt count 310. ASSESSMENT: 1. Left foot open puncture wound with the cellulitis and abscess 2. Diabetes 3. Hypertension 4. Dyslipidemia 5. Anemia PLAN: 1. Vancomycin and Rocephin 2. IV fluids 3. Lovenox for the DVT prophylaxis 4. Anemia profile 5. Keep the leg elevated. TIME SPENT: More than 35 minutes MTDD
[2017-09-15] MEDS: VANCOMYCIN 750 MG in SODIUM CHLORIDE 250 ML IV SCH (21:53)
[2017-09-15] MEDS: LANTUS SUBCUT SCH (21:55)
[2017-09-15] MEDS: LIPITOR PO SCH (22:06)
[2017-09-16] MEDS: FLAGYL PO SCH (05:33)
[2017-09-16] MEDS: ZESTRIL PO SCH (08:52)
[2017-09-16] MEDS: JANUVIA PO SCH (08:52)
[2017-09-16] MEDS: MOBIC PO SCH (08:52)
[2017-09-16] MEDS: LOVENOX SUBCUT SCH (08:52)
[2017-09-16] MEDS: NORVASC PO SCH (08:52)
[2017-09-16] MEDS: FLORASTOR PO SCH (08:52)
[2017-09-16] MEDS: JARDIANCE PO SCH (08:53)
[2017-09-16] MEDS: MAXIPIME 2 GM in SODIUM CHLORIDE 100 ML IV SCH (08:53)
[2017-09-16 09:29] VITALS: BP 142/70; TEMP 97.2
[2017-09-16] MEDS: VANCOMYCIN 750 MG in SODIUM CHLORIDE 250 ML IV SCH (10:04)
--- NOTE | 2017-09-16 11:11 | PN ---
DATE OF SERVICE: 09/12/17 SUBJECTIVE: The patient was admitted with the left foot abscess and draining puss after stepping on a glass with diabetes. The patient was admitted to the hospital and started on the antibiotics. Wound culture did grow Citrobacter Koseri. The patient is being given Rocephin and Vancomycin. Citrobacter Koseri is sensitive to the Rocephin. The patient's wound is still draining the puss. REVIEW OF SYSTEMS: CONSTITUTIONAL: No fever, no chills. HEENT: Normal. ENDOCRINE: No weight gain, no weight loss. CVS: No angina symptoms. No CHF symptoms. No palpitations. No atypical chest pain for CAD. No shortness of breath. No PND, no orthopnea. RESPIRATORY: No cough, no hemoptysis. GI: No nausea, no vomiting. No abdominal pain. : No hematuria. No polyuria. MUSCULOSKELETAL: No joint swelling. PSYCHIATRIC: Not anxious. No depression. No suicidal thoughts. No homicidal thoughts. SKIN: Intact. No rash. PHYSICAL EXAMINATION: V/S: Blood pressure 124/75, respiratory rate 18, heart rate 62, temperature 98.5 with saturation 98. HEENT: Normocephalic, atraumatic. Mucosa dry. NECK: Supple. No JVD, no carotid bruit. No lymphadenopathy. LUNGS: Clear to auscultation. No rales or rhonchi. HEART: S1, S2 normal. No S3. No murmur, gallop or regurgitation. ABDOMEN: Soft, nontender. Bowel sounds active. No rigidity. No rebound or guarding. No CVA tenderness. EXTREMITIES: No cyanosis, clubbing or pedal edema. Left foot wound #1 is 7cm deep still draining puss, tenderness is present. Redness is not there. Second wound is 2cm long which is dry with clear base. Right foot callus looking better , dry and no drainage at this time. MUSCULOSKELETAL: No joint swelling. NEUROLOGIC: Awake, alert, oriented times three. No focal deficit. LYMPHATIC: No lymph nodes palpable. SKIN: Intact. LABS: WBC 6.66, hgb 9.7, hct 29.4, plt count 309, sodium 139, potassium 4.2, chloride 107, bicarb 24, BUN 14, creatinine 0.64 and glucose 112. ASSESSMENT: 1. Left foot puncture wound growing gram positive cocci and Citrobacter 2. Diabetes 3. Hypertension 4. Anemia 5. Noncompliance PLAN: 1. Continue the Rocephin, Vancomycin 2. Accu-checks with coverage 3. Keep the legs elevated 4. Wet to dry dressing. TIME SPENT: More than 35 minutes MTDD
--- NOTE | 2017-09-16 11:18 | PN ---
DATE OF SERVICE: 09/13/17 SUBJECTIVE: The patient's left foot wound is still draining the puss but the patient is up and about and active. CT scan initially did not show any osteomyelitis. REVIEW OF SYSTEMS: CONSTITUTIONAL: No fever, no chills. HEENT: Normal. ENDOCRINE: No weight gain, no weight loss. CVS: No angina symptoms. No CHF symptoms. No palpitations. No atypical chest pain for CAD. No shortness of breath. No PND, no orthopnea. RESPIRATORY: No cough, no hemoptysis. GI: No nausea, no vomiting. No abdominal pain. : No hematuria. No polyuria. MUSCULOSKELETAL: No joint swelling. PSYCHIATRIC: Not anxious. No depression. No suicidal thoughts. No homicidal thoughts. SKIN: Intact. No rash. PHYSICAL EXAMINATION: V/S: Blood pressure 127/69, respiratory rate 98, heart rate 20, temperature 97.9 with saturation 98% HEENT: Normocephalic, atraumatic. Mucosa dry. Pallor positive. No icterus. NECK: Supple. No JVD, no carotid bruit. No lymphadenopathy. LUNGS: Decreased and basilar crackles. No rales or rhonchi. HEART: S1, S2 normal. No S3. No murmur, gallop or regurgitation. ABDOMEN: Soft, nontender. Bowel sounds active. No rigidity. No rebound or guarding. No CVA tenderness. EXTREMITIES: No cyanosis, clubbing or pedal edema. Left foot wound #1 7cm draining puss, Wound #2 dry base no drainage at this time and wound #3 on the right foot below the 5th metatarsal callus looking healthy at this time. MUSCULOSKELETAL: No joint swelling. NEUROLOGIC: Awake, alert, oriented times three. No focal deficit. LYMPHATIC: No lymph nodes palpable. SKIN: Intact. LABS: Sodium 139, potassium 4.1, chloride 108, bicarb 23, BUN 16, creatinine 0.64, WBC 6.73, hgb 9.6, hct 29.1, plt count 356. ASSESSMENT: 1. Left foot puncture wound with open ulceration, Citrobacter Koseri 2. Anemia 3. Hypertension 4. Noncompliance 5. Dyslipidemia 6. Osteoarthritis PLAN: 1. Continue Cefepime and Vancomycin 2. Accu-check with coverage TIME SPENT: More than 35 minutes MTDD
--- NOTE | 2017-09-18 15:53 | DS ---
DATE OF SERVICE: 09/16/17 FINAL DIAGNOSIS: 1. Left puncture wound with infection from Citrobacter Koseri sensitive to the Bactrim 2. Diabetes 3. Hypertension 4. Noncompliance with treatment 5. History of recurrent pneumonia 6. Depression 7. Anxiety 8. Hysterectomy 9. 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 Followup at the [facility] with in 5-7 days. Keep foot wound dry and keep the foot elevated when at rest. Wound hygiene been discussed. Continue the rest of the home medications. MEDICATIONS AT DISCHARGE: Amlodipine Atorvastatin Cyclobenzaprine Lisinopril Januvia Lantus Meloxicam Jardiance NEW PRESCRIPTIONS: Bactrim DS twice a day for 7 days Florastor 250mg PO twice a day DIET INSTRUCTIONS: Diabetic diet ACTIVITY: As much as tolerated DISEASE SPECIFIC EDUCATION: Wound infection Worsening of the wound infection and spreading to the bones and osteomyelitis been discussed Diabetic foot pain been discussed and verbalized understanding. HOSPITAL COURSE: Ann Maldonado who is a diabetic patient and noncompliance with the treatment working at home she stepped on the broke glass piece and had punctured wound almost 7cm and second wound was 2cm. The patient was started treating at home but started getting redness and swelling and started draining the puss. Came to the clinic and admitted to the hospital. Started on the antibiotic Rocephin and Vancomycin. Accu-checks with the coverage was done. Lovenox was given. With the given treatment gradually and slowly the patient's wound were getting dry, which did grow gram cocci and Citrobacter which were sensitive to the Rocephin and the Vancomycin. Meanwhile the small wound on the left foot been dry and the base been red and closed up. The 7cm wound gradually getting better, still draining puss mostly dry upper area of the wound below the third toe still red and oozing. The patient has been up and about walking. Did not have any complication during the hospital stay. Hgb and hct been stable. At that time the patient being discharged home. The patient is put with the Wound Care as outpatient. Again risk of osteomyelitis been discussed with the patient on multiple occasions during the hospital stay. She clearly verbalized understanding. CT scan of the foot did not show any signs of osteomyelitis. X-ray did not show any signs of osteomyelitis in the hospital. TIME SPENT: MORE THAN 65 MINUTES MTDD
== END 2017-09-16 11:36 | disposition home or self-care (01) | DRG 914 ==
LOC: MEDSURG B 16:59 → UNDOADMIN 16:59 → MEDSURG B 09-11 02:11 → UNDOADMIN 09-11 02:11
PROVIDERS: ADMIT Emergency Medicine; ATTEND Emergency Medicine
DX: S91.322A Laceration with foreign body, left foot, initial encounter (principal); L03.116 Cellulitis of left lower limb; X58.XXXA Exposure to other specified factors, initial encounter; Y93.E9 Activity, other interior property and clothing maintenance; E11.9 Type 2 diabetes mellitus without complications; Z79.4 Long term (current) use of insulin; I10 Essential (primary) hypertension; F41.8 Other specified anxiety disorders; M19.90 Unspecified osteoarthritis, unspecified site; Z91.19 Patient's noncompliance with other medical treatment and regimen; D64.9 Anemia, unspecified; E78.5 Hyperlipidemia, unspecified
CPT/HCPCS: 36415; 80053; 80202; 82607; 82728; 82746; 82962; 83540; 83550; 84466; 85025; 85045; 85651; 87040; 87070; 87077; 87186; 90715

== ENCOUNTER 2017-09-23 09:23 | Outpatient (CLI) | END 2017-09-23 09:24 | disposition home or self-care (01) | LOC: WOUND 09:23 | PROVIDERS: ATTEND Nurse Practitioner Family | DX: S91.312A Laceration without foreign body, left foot, initial encounter (principal); I10 Essential (primary) hypertension; E11.9 Type 2 diabetes mellitus without complications; D64.9 Anemia, unspecified; E78.5 Hyperlipidemia, unspecified ==

== ENCOUNTER 2017-09-30 09:08 | Outpatient (CLI) | END 2017-09-30 09:09 | disposition home or self-care (01) | LOC: WOUND 09:08 | PROVIDERS: ATTEND Nurse Practitioner Family | DX: S91.312A Laceration without foreign body, left foot, initial encounter (principal); I10 Essential (primary) hypertension; E11.9 Type 2 diabetes mellitus without complications; D64.9 Anemia, unspecified; E78.5 Hyperlipidemia, unspecified | CPT/HCPCS: 11042 ==

== ENCOUNTER 2017-10-14 08:21 | Outpatient (CLI) | payer OTHER | END 2017-10-14 08:22 | disposition home or self-care (01) | LOC: WOUND 08:21 | PROVIDERS: ATTEND Nurse Practitioner Family | DX: S91.312A Laceration without foreign body, left foot, initial encounter (principal); I10 Essential (primary) hypertension; E11.9 Type 2 diabetes mellitus without complications; D64.9 Anemia, unspecified; E78.5 Hyperlipidemia, unspecified | CPT/HCPCS: 11042; 99213 ==

== ENCOUNTER 2017-10-21 09:23 | Outpatient (CLI) | payer OTHER | END 2017-10-21 09:24 | disposition home or self-care (01) | LOC: WOUND 09:23 | PROVIDERS: ATTEND Nurse Practitioner Family | DX: S91.312A Laceration without foreign body, left foot, initial encounter (principal); I10 Essential (primary) hypertension; E11.9 Type 2 diabetes mellitus without complications; D64.9 Anemia, unspecified; E78.5 Hyperlipidemia, unspecified | CPT/HCPCS: 11042; 99213 ==

== ENCOUNTER 2017-10-28 09:12 | Outpatient (CLI) | END 2017-10-28 09:13 | disposition home or self-care (01) | LOC: WOUND 09:12 | PROVIDERS: ATTEND Nurse Practitioner Family | DX: S91.312A Laceration without foreign body, left foot, initial encounter (principal); I10 Essential (primary) hypertension; E11.9 Type 2 diabetes mellitus without complications; D64.9 Anemia, unspecified; E78.5 Hyperlipidemia, unspecified | CPT/HCPCS: 11042 ==

== ENCOUNTER 2017-11-04 09:21 | Outpatient (CLI) | END 2017-11-04 09:22 | disposition home or self-care (01) | LOC: WOUND 09:21 | PROVIDERS: ATTEND Nurse Practitioner Family | DX: S91.312A Laceration without foreign body, left foot, initial encounter (principal); I10 Essential (primary) hypertension; E11.9 Type 2 diabetes mellitus without complications; D64.9 Anemia, unspecified; E78.5 Hyperlipidemia, unspecified | CPT/HCPCS: 11042 ==

== ENCOUNTER 2017-11-08 21:52 | Inpatient (IN) ==
--- NOTE | 2017-11-08 22:43 | CT ---
EXAM: CT left foot without intravenous contrast 11/08/2017. Sagittal and coronal reformatted images obtained HISTORY: Foot wound. Question abscess. COMPARISON: 09/13/2017 FINDINGS: Edematous appearance is present throughout the undersurface of the distal foot. There is a soft tissue defect at the skin surface inferior to the head of the second metatarsal. This can be s een on sagittal series image 36. There is edematous appearance throughout the overlying soft tissues . No fluid collection or abscess identified. There is no focal bony erosion or fragmentation at this level. Extensive edema is present inferior to the first, second and third distal metatarsals. Additional ex tensive edema inferior to the head of the fifth metatarsal. Chronic osteoarthritic degenerative change is present throughout the ankle and foot. This appears ch ronic. Bulky enthesopathy of the Achilles insertion site. Large calcaneal spur. Chronic ossificati on along the plantar fascia. IMPRESSION: 1. Extensive soft tissue edema along the undersurface of the foot. This is most severe inferior to the head of the first, second, third and fifth metatarsals. 2. Focal soft tissue ulceration inferior to the level of the second metatarsal head. 3. No drainable fluid collection or abscess identified. 4. No specific CT evidence of osteomyelitis. No focal bony erosion. If there is clinical concern f or osteomyelitis then MRI could be considered for further evaluation. 5. Partially limited examination due to the lack of intravenous contrast.
--- NOTE | 2017-11-08 23:31 | ED.PDOC ---
General ED Provider: Dr. BUBBA RAMIREZ-ER Chief Complaint: Foot Pain/Injury Stated Complaint: my foot is swollen and red Time Seen by Physician: 22:55 Mode of Arrival: Ambulance Information Source: Patient, EMT Exam Limitations: No limitations [facility] Nursing and Triage Documentation Reviewed and Agree: Yes Does patient meet sepsis criteria?: No System Inflammatory Response Syndrome: Not Applicable Sepsis Protocol: For patient's 13 years and over: Temp is 96.8 and below OR 101 and greater Pulse >90 BPM Resp >20/minute Acutely Altered Mental Status Are patient's symptoms suggestive of a new infection, such as: -Pneumonia -Skin, Soft Tissue -Endocarditis -UTI -Bone, Joint Infection -Implantable Device -Acute Abdominal Infection -Wound Infection -Meningitis -Blood Stream Catheter Infection -Unknown Musculoskeletal Complaint Exam - Ankle/Foot Complaint/Exam Location of Injury: Reports: Left Mechanism of Injury: Reports: No known trauma Onset/Duration: 2 days Symptoms Are: Reports: Still present Onset of Pain: Reports: Immediate Initial Severity: Mild Current Severity: Moderate Location: Reports: Discrete (left foot) Character: Reports: Dull, Aching Alleviating: Reports: None Aggravating: Reports: Movement, Weight bearing Able to Bear Weight: Yes Associated Signs and Symptoms: Reports: Swelling, Redness Lower Extremity Findings: Present: Swelling, Erythema, Tenderness, Limited range of motion Achilles Tendon Abnormality: No Tenderness: Present: Midfoot Differential Diagnosis: Cellulitis, Infection Review of Systems - Review Of Systems Constitutional: Reports: No symptoms Eyes: Reports: No symptoms Ears, Nose, Mouth, Throat: Reports: No symptoms Respiratory: Reports: No symptoms Cardiac: Reports: No symptoms GI: Reports: No symptoms : Reports: No symptoms Musculoskeletal: Reports: Other Skin: Reports: No symptoms Neurological: Reports: No symptoms Endocrine: Reports: No symptoms Hematologic/Lymphatic: Reports: No symptoms All Other Systems: Reviewed and Negative Past Medical History - Past Medical History Previously Healthy: No Endocrine: Reports: Unknown Cardiovascular: Reports: Unknown Respiratory: Reports: Unknown Hematological: Reports: Unknown Gastrointestinal: Reports: Unknown Genitourinary: Reports: Unknown Neuro/Psych: Reports: Unknown Musculoskeletal: Reports: Unknown Cancer: Reports: Unknown Last Menstrual Period: UNKNOWN - Surgical History General Surgical History: Reports: Unknown - Family History Family History: Reports: Unknown - Social History Smoking Status: Former smoker Hx Substance Use: No Alcohol Screening: None - Immunizations Tetanus Shot up to Date: Yes Physical Exam - Physical Exam Appearance: Well-appearing, No pain distress, Well-nourished Pain Distress: Moderate Eyes: LEXI, EOMI, Conjunctiva clear ENT: Ears normal, Nose normal, Oropharynx normal Neck: Supple Respiratory: Airway patent Cardiovascular: RRR, Pulses normal, No rub, No murmur GI/: Soft Musculoskeletal: Limited ROM, Edema Skin: Warm, Dry, Normal color Neurological: Sensation intact, Motor intact, Reflexes intact, Cranial nerves intact, Alert, Oriented Psychiatric: Affect appropriate, Mood appropriate, Anxious Interpretation - Radiology Interpretation Radiology Interpretation By: Radiologist Radiology Results: Negative Exam Interpreted: CT Scan Physician Notification - Case Discussed Physician Notified: dr richards Critical Care Note - Critical Care Note Total Time (mins): 0 Course - Course Hematology/Chemistry: 11/08/17 22:40 11/08/17 22:40 Orders, Labs, Meds: Lab Review 11/08/17 11/08/17 11/08/17 22:40 22:40 22:40 WBC 7.58 RBC 3.95 L Hgb 10.8 L Hct 32.4 L MCV 82.0 MCH 27.3 MCHC 33.3 RDW Coeff of Chary 14.8 Plt Count 289 Immature Gran % (Auto) 0.3 Neut % (Auto) 59.6 Lymph % (Auto) 30.6 Armstrong % (Auto) 6.9 Eos % (Auto) 2.2 Baso % (Auto) 0.4 Immature Gran # (Auto) 0.0 Neut # (Auto) 4.5 Lymph # (Auto) 2.3 Armstrong # (Auto) 0.5 Eos # (Auto) 0.2 Baso # (Auto) 0.0 ESR 70 H Sodium 136 Potassium 4.2 Chloride 101 Carbon Dioxide 25 Anion Gap 14.2 BUN 15 Creatinine 0.65 Estimated GFR (MDRD) 91.00 BUN/Creatinine Ratio 23.07 Glucose 99 Lactic Acid 10.9 Calcium 10.3 H Total Bilirubin 0.3 AST 23 ALT 17 Alkaline Phosphatase 83 Total Protein 7.8 Albumin 3.4 Globulin 4.4 Albumin/Globulin Ratio 0.77 Procalcitonin 11/08/17 22:40 WBC RBC Hgb Hct MCV MCH MCHC RDW Coeff of Chary Plt Count Immature Gran % (Auto) Neut % (Auto) Lymph % (Auto) Armstrong % (Auto) Eos % (Auto) Baso % (Auto) Immature Gran # (Auto) Neut # (Auto) Lymph # (Auto) Armstrong # (Auto) Eos # (Auto) Baso # (Auto) ESR Sodium Potassium Chloride Carbon Dioxide Anion Gap BUN Creatinine Estimated GFR (MDRD) BUN/Creatinine Ratio Glucose Lactic Acid Calcium Total Bilirubin AST ALT Alkaline Phosphatase Total Protein Albumin Globulin Albumin/Globulin Ratio Procalcitonin < 0.05 Orders Category Date Time Status BLOOD CULTURE (ED ONLY) Stat LAB 11/08/17 22:40 Received CBC W/ AUTO DIFF Stat LAB 11/08/17 22:40 Completed COMPREHENSIVE METABOLIC PANEL Stat LAB 11/08/17 22:40 Completed ESR Stat LAB 11/08/17 22:40 Completed LACTIC ACID Stat LAB 11/08/17 22:40 Completed PROCALCITONIN Stat LAB 11/08/17 22:[address] FOOT LEFT WITHOUT CONTRAST Stat RADS 11/08/17 21:56 Completed Vital Signs: Temp Pulse Resp BP Pulse Ox 11/08/17 21:53 98 F 72 18 158/76 H 97 Departure - Departure Time of Disposition: 23:32 Disposition: ADMITTED INPATIENT Discharge Problem: Foot pain, left Instructions: Swollen Joint (ED) Condition: Fair Pt referred to PMD for follow-up: Yes IPMP verified?: No Allergies/Adverse Reactions: Allergies sulfamethoxazole [From Bactrim] Adverse Reaction (Verified 11/08/17 22:01) "vaginal pain" trimethoprim [From Bactrim] Adverse Reaction (Verified 11/08/17 22:01) "vaginal pain" Home Medications: Ambulatory Orders Saccharomyces Boulardii [Florastor] 250 mg PO BID #60 capsule 09/16/17 Disposition Discussed With: Patient, Family
[2017-11-08] MEDS ORDERED: FLEXERIL PO PRN (23:35)
[2017-11-08] MEDS ORDERED: NORCO 7.5-325 PO PRN (23:37)
[2017-11-09] MEDS: VANCOMYCIN 1 GM in SODIUM CHLORIDE 250 ML IV SCH ×3 (00:48→21:53)
[2017-11-09 01:50] VITALS: BMI 21.9
[2017-11-09] MEDS: SODIUM CHLORIDE 1,000 ML IV SCH ×2 (02:07→19:19)
[2017-11-09] MEDS: GLUCOPHAGE PO SCH (10:08)
[2017-11-09] MEDS: LIPITOR PO SCH (10:08)
[2017-11-09] MEDS: MOBIC PO SCH ×2 (10:08→17:00)
[2017-11-09] MEDS: FLORASTOR PO SCH ×2 (10:08→21:54)
[2017-11-09] MEDS: NORVASC PO SCH (10:09)
[2017-11-09] MEDS: ZESTRIL PO SCH (10:09)
--- NOTE | 2017-11-09 14:30 | MRI ---
EXAM: MRI of the left forefoot without contrast COMPARISON: CT of the left foot 11/08/2017. Left foot radiographs 09/13/2017. HISTORY: Left foot stasis ulcer along the ball of the foot since September,. Previous laceration. TECHNIQUE: Noncontrast multiplanar MR images of the left midfoot and forefoot were acquired using a 1.2 Lynda magnet. FINDINGS: There is subcutaneous edema and ill-defined subcutaneous fluid circumferentially throughou t the forefoot and midfoot consistent with cellulitis. There is irregularity of the soft tissues johnny ng the plantar aspect of the metatarsophalangeal joints which is most extensive at the level of the f irst through third metatarsophalangeal joints. There is extensive underlying inflammatory phlegmon/g ranulation tissue at that site though without a discrete drainable subcutaneous abscess. There is jani e gas extending into the subcutaneous tissues at the level of the soft tissue ulcer. There are small joint effusions involving the first through fifth metatarsophalangeal joints which are nonspecific. There is edema adjacent to the metatarsophalangeal joint capsules without reactive marrow edema or er osive change to suggest acute osteomyelitis. Mild degenerative spurring of the interphalangeal joint s. Moderate degenerative changes of the tarsometatarsal joints most severe at the fourth and fifth t arsometatarsal joints. There is degenerative spurring at the navicular cuneiform, talonavicular and calcaneocuboid articulations with incomplete assessment the ankle/hind-foot. Small accessory navicul ar. Sprain with scarring of the Lisfranc ligament intact fibers identified. Intermetatarsal bursitis inv olving the distal first through third interspaces at the level of the metatarsophalangeal joints. No full-thickness tendon tear or tendon retraction. Muscle atrophy and intramuscular edema related to sequela denervation and/or myositis. IMPRESSION: 1. Cellulitis involving the midfoot and forefoot. Deep soft tissue ulcer along the plantar aspect o f the metatarsophalangeal joints as described with underlying soft tissue gas and inflammatory phlegm on. No definite drainable fluid collection/abscess at this time. 2. Small joint effusions involving the metatarsophalangeal joints with edema adjacent to the joint c apsule suggesting nonspecific synovitis. No evidence of reactive marrow edema or erosive change at t he metatarsophalangeal joints to suggest acute osteomyelitis, however. 3. Sequela of muscle denervation and/or myositis. 4. Sprain with scarring of the Lisfranc ligament intact fibers identified. 5. Intermetatarsal bursitis.
[2017-11-09] MEDS ORDERED: INSULIN GLARGINE HUM REC ANLOG 10 UNIT SQ SCH (21:00)
[2017-11-10 06:04] VITALS: BP 128/71; TEMP 98.6
[2017-11-10] MEDS: GLUCOPHAGE PO SCH (09:15)
[2017-11-10] MEDS: FLORASTOR PO SCH (09:15)
[2017-11-10] MEDS: MOBIC PO SCH (09:15)
[2017-11-10] MEDS: NORVASC PO SCH (09:16)
[2017-11-10] MEDS: ZESTRIL PO SCH (09:16)
[2017-11-10] MEDS: LIPITOR PO SCH (09:16)
--- NOTE | 2017-11-10 10:12 | HP ---
DATE OF SERVICE: 11/09/17 CHIEF COMPLAINT: Left foot pain HISTORY OF PRESENT ILLNESS: This is a 66 year old female who came to the emergency room with left foot pain and swelling. The patient had recently the puncture wound, was taking antibiotics and going to the Wound Care. The wound started swelling, painful, red and started draining so the patient got worried about the deeper infection so came to the emergency room and seen by Dr. Law. WBC was normal, hgb 10.8, ESR was 70. CT of the foot showed inflammation and infection of the foot. At that time the patient was admitted to the hospital for the IV antibiotics and ordering the MRI to rule out osteomyelitis. REVIEW OF SYSTEMS: CONSTITUTIONAL: No fever, no chills. Pain, redness, swelling and drainage of the left foot. HEENT: Normal. ENDOCRINE: No weight gain; no weight loss. CVS: No chest pain. No PND, no orthopnea. No shortness of breath. No PND, no orthopnea. RESPIRATORY: No cough, no congestion. No hemoptysis. GI: No nausea, no vomiting. No abdominal pain. No melena. : No hematuria. No polyuria. MUSCULOSKELETAL: No joint swelling. Lower back pain. PSYCHIATRIC: Anxious. Depression. No suicidal thoughts. No homicidal thoughts. SKIN: Intact, no open lesions. PAST MEDICAL HISTORY: CAD Hypertension Dyslipidemia Pneumonia Osteoarthritis Diabetes Depression Anxiety Nicotine Use Sleep apnea PAST SURGICAL HISTORY: Hysterectomy Left hip replacement Femur cancer Cataract surgery PERSONAL HISTORY: The patient does smoke in the past, quit at the age of 22. No alcohol and no drugs. FAMILY HISTORY: Significant for the diabetes and hypertension MEDICATIONS: Atorvastatin Cyclobenzaprine Norvasc Meloxicam Lisinopril Insulin Metformin ALLERGIES: Bactrim PHYSICAL EXAMINATION: V/S: Blood pressure 117/64, respiratory rate 16, heart rate 56, temperature 98.3 and saturation 95. HEENT: Atraumatic, normocephalic. No scleral icterus. Pallor positive. Mucosa dry. NECK: Supple. No JVD, no bruit. No lymphadenopathy. No thyromegaly. HEART: S1, S2 normal. No murmur. No cyanosis or clubbing. No ascites. LUNGS: Decreased and clear to auscultation. No rales or rhonchi. ABDOMEN: Soft, nontender. Bowel sounds are active. No CVA tenderness. No rigidity or guarding. EXTREMITIES: No pedal edema. No cyanosis or clubbing. left midfoot is open wound with yellowish to clear stuff, warm to touch and tender to touch. MUSCULOSKELETAL: Normal joints, no swelling. NEUROLOGIC: The patient is SKIN: Intact; no open lesions. LYMPHATIC: No lymph nodes palpable. LABS: WBC 7.58, hgb 10.8, hct 32.4, plt count 289, sodium 136, potassium 4.2, chloride 101, bicarb 25, BUN 15, creatinine 0.65 and glucose 91 and U/A negative. ASSESSMENT: 1. Left foot cellulitis with open wound 2. Foot ulcer rule out osteomyelitis 3. Diabetes 4. Hypertension 5. Dyslipidemia 6. Osteoarthritis 7. DJD spine 8. Depression 9. Anxiety PLAN: 1. Admit patient to the regular floor 2. CBC and CMP today and daily 3. Cardiac enzymes and Troponin 4. IV fluids 5. Vancomycin 1 gram daily 6. Accu-checks with coverage. TIME SPENT: MORE THAN 70 minutes MTDD
--- NOTE | 2017-11-10 17:15 | PCM.HOSP ---
- Observation Care Discharge [id number] OBS Care Discharge (09835): 11/10 - Initial Observation Care [id number] High Complexity 70 Minutes (90882): 11/08 - Subsequent Observation Care [id number] 35 Minutes per Day (96775): 11/09
--- NOTE | 2017-11-11 13:37 | DS ---
DATE OF SERVICE: 11/10/17 FINAL DIAGNOSIS: 1. Left foot puncture wound and diabetic ulcer, nondiabetic 2. Synovitis per MRI of the foot 3. Diabetes 4. Hypertension 5. Dyslipidemia 6. Osteoarthritis 7. DJD spine 8. Cataract surgery 9. Nasal surgery 10.Bladder suspicions surgery 11.Hysterectomy 12.Left hip arthroplasty 13.Left femur surgery DISCHARGE INSTRUCTIONS: Discharge the patient home. Risk of osteomyelitis been discussed. Followup in the [facility] within 3-4 days. Continue the rest of the home medications. Keep the wound clean. MEDICATIONS AT DISCHARGE: Amlodipine Atorvastatin Cyclobenzaprine Lantus Lisinopril Meloxicam Metformin NEW PRESCRIPTIONS: Bactrim DS twice a day for 5 days. DIET INSTRUCTIONS: Cardiac and healthy ACTIVITY: As tolerated. DISEASE SPECIFIC EDUCATION: Risk of osteomyelitis Bone infection, deeper infection been discussed. Probiotic and yogurts as patient is taking a lot of antibiotics lately. HOSPITAL COURSE: Ann Maldonado 66 year old female who has a puncture wound to the left foot after stepping on the glass been going to the Wound Care, says that her foot swelling more, tender and started draining so she was worried and came to the emergency room. She was seen by Dr. Law. CT showed the swelling and inflammatory changes, ESR was elevated 17. At that time the patient was admitted to the hospital for the observation. IV antibiotics Vancomycin was started and MRI of the foot was ordered. We did the MRI of the foot by the next day which showed the inflammatory changes and the infection, synovitis but no osteomyelitis signs. As there was no osteomyelitis and the wound was looking dry and less present the patient was willing to go home today. Risk of deeper infection and osteomyelitis is known to the patient and verbalized understanding. TIME SPENT: MORE THAN 65 MINUTES MTDD
== END 2017-11-10 09:45 | disposition left against medical advice (07) | DRG 603 ==
LOC: ED 21:52 → MEDSURG B 23:35 → OBSVTOIN 23:35
PROVIDERS: ADMIT Emergency Medicine; ATTEND Emergency Medicine
DX: L03.116 Cellulitis of left lower limb (principal); S91.302D Unspecified open wound, left foot, subsequent encounter; E11.9 Type 2 diabetes mellitus without complications; E78.5 Hyperlipidemia, unspecified; I10 Essential (primary) hypertension; M19.90 Unspecified osteoarthritis, unspecified site; M47.9 Spondylosis, unspecified; M65.9 Synovitis and tenosynovitis, unspecified; F41.8 Other specified anxiety disorders; Z79.4 Long term (current) use of insulin
CPT/HCPCS: 36415; 80053; 80202; 81001; 83605; 84145; 85025; 85651; 87040; 87086; 87186; 96365; 99284

== ENCOUNTER 2017-11-11 10:06 | Outpatient (CLI) | payer OTHER | END 2017-11-11 10:07 | disposition home or self-care (01) | LOC: WOUND 10:06 | PROVIDERS: ATTEND Nurse Practitioner Family | DX: S91.312A Laceration without foreign body, left foot, initial encounter (principal); I10 Essential (primary) hypertension; E11.9 Type 2 diabetes mellitus without complications; D64.9 Anemia, unspecified; E78.5 Hyperlipidemia, unspecified ==

== ENCOUNTER 2017-11-18 09:14 | Outpatient (CLI) | payer OTHER | END 2017-11-18 09:15 | disposition home or self-care (01) | LOC: WOUND 09:14 | PROVIDERS: ATTEND Nurse Practitioner Family | DX: S91.312A Laceration without foreign body, left foot, initial encounter (principal); I10 Essential (primary) hypertension; E11.9 Type 2 diabetes mellitus without complications; D64.9 Anemia, unspecified; E78.5 Hyperlipidemia, unspecified ==

== ENCOUNTER 2017-11-25 09:14 | Outpatient (CLI) | END 2017-11-25 09:15 | disposition home or self-care (01) | LOC: WOUND 09:14 | PROVIDERS: ATTEND Nurse Practitioner Family | DX: S91.312A Laceration without foreign body, left foot, initial encounter (principal); I10 Essential (primary) hypertension; E11.9 Type 2 diabetes mellitus without complications; D64.9 Anemia, unspecified; E78.5 Hyperlipidemia, unspecified ==

== ENCOUNTER 2017-12-16 08:54 | Outpatient (CLI) | payer OTHER | END 2017-12-16 08:55 | disposition home or self-care (01) | LOC: WOUND 08:54 | PROVIDERS: ATTEND Nurse Practitioner Family | DX: S91.312A Laceration without foreign body, left foot, initial encounter (principal); I10 Essential (primary) hypertension; E11.9 Type 2 diabetes mellitus without complications; D64.9 Anemia, unspecified; E78.5 Hyperlipidemia, unspecified | CPT/HCPCS: 11042 ==

== ENCOUNTER 2017-12-23 09:45 | Outpatient (CLI) | END 2017-12-23 09:46 | disposition home or self-care (01) | LOC: WOUND 09:45 | PROVIDERS: ATTEND Nurse Practitioner Family | DX: S91.312A Laceration without foreign body, left foot, initial encounter (principal); I10 Essential (primary) hypertension; E11.9 Type 2 diabetes mellitus without complications; D64.9 Anemia, unspecified; E78.5 Hyperlipidemia, unspecified | CPT/HCPCS: 11042 ==

== ENCOUNTER 2017-12-30 09:32 | Outpatient (CLI) | payer OTHER | END 2017-12-30 09:33 | disposition home or self-care (01) | LOC: WOUND 09:32 | PROVIDERS: ATTEND Nurse Practitioner Family | DX: S91.312A Laceration without foreign body, left foot, initial encounter (principal); I10 Essential (primary) hypertension; E11.9 Type 2 diabetes mellitus without complications; D64.9 Anemia, unspecified; E78.5 Hyperlipidemia, unspecified | CPT/HCPCS: 11042 ==

== ENCOUNTER 2018-01-13 09:17 | Outpatient (CLI) | payer OTHER | END 2018-01-13 09:18 | disposition home or self-care (01) | LOC: WOUND 09:17 | PROVIDERS: ATTEND Nurse Practitioner Family | DX: S91.312A Laceration without foreign body, left foot, initial encounter (principal); I10 Essential (primary) hypertension; E11.9 Type 2 diabetes mellitus without complications; D64.9 Anemia, unspecified; E78.5 Hyperlipidemia, unspecified | CPT/HCPCS: 11042 ==

== ENCOUNTER 2018-01-20 09:16 | Outpatient (CLI) | payer OTHER | END 2018-01-20 09:17 | disposition home or self-care (01) | LOC: WOUND 09:16 | PROVIDERS: ATTEND Nurse Practitioner Family | DX: S91.312A Laceration without foreign body, left foot, initial encounter (principal); I10 Essential (primary) hypertension; E11.9 Type 2 diabetes mellitus without complications; D64.9 Anemia, unspecified; E78.5 Hyperlipidemia, unspecified | CPT/HCPCS: 11042 ==

== ENCOUNTER 2018-01-27 09:19 | Outpatient (CLI) | payer OTHER | END 2018-01-27 09:20 | disposition home or self-care (01) | LOC: WOUND 09:19 | PROVIDERS: ATTEND Nurse Practitioner Family | DX: S91.312A Laceration without foreign body, left foot, initial encounter (principal); I10 Essential (primary) hypertension; E11.9 Type 2 diabetes mellitus without complications; D64.9 Anemia, unspecified; E78.5 Hyperlipidemia, unspecified ==

== ENCOUNTER 2018-02-10 08:12 | Outpatient (CLI) | END 2018-02-10 08:13 | disposition home or self-care (01) | LOC: WOUND 08:12 | PROVIDERS: ATTEND Nurse Practitioner Family | DX: S91.312A Laceration without foreign body, left foot, initial encounter (principal); I10 Essential (primary) hypertension; E11.9 Type 2 diabetes mellitus without complications; D64.9 Anemia, unspecified; E78.5 Hyperlipidemia, unspecified | CPT/HCPCS: 11042 ==

== ENCOUNTER 2018-02-24 08:32 | Outpatient (CLI) | payer OTHER | END 2018-02-24 08:33 | disposition home or self-care (01) | LOC: WOUND 08:32 | PROVIDERS: ATTEND Nurse Practitioner Family | DX: S91.312A Laceration without foreign body, left foot, initial encounter (principal); I10 Essential (primary) hypertension; E11.9 Type 2 diabetes mellitus without complications; D64.9 Anemia, unspecified; E78.5 Hyperlipidemia, unspecified ==

== ENCOUNTER 2018-04-14 09:39 | Outpatient (CLI) | payer OTHER | END 2018-04-14 09:40 | disposition home or self-care (01) | LOC: WOUND 09:39 | PROVIDERS: ATTEND Nurse Practitioner Family | DX: S91.312A Laceration without foreign body, left foot, initial encounter (principal) | CPT/HCPCS: 99213 ==

== ENCOUNTER 2018-04-21 09:09 | Outpatient (CLI) | END 2018-04-21 09:10 | disposition home or self-care (01) | LOC: WOUND 09:09 | PROVIDERS: ATTEND Nurse Practitioner Family | DX: S91.312A Laceration without foreign body, left foot, initial encounter (principal) | CPT/HCPCS: 11042 ==

== ENCOUNTER 2018-04-28 09:02 | Outpatient (CLI) | payer OTHER | END 2018-04-28 09:03 | disposition home or self-care (01) | LOC: WOUND 09:02 | PROVIDERS: ATTEND Nurse Practitioner Family | DX: S91.312A Laceration without foreign body, left foot, initial encounter (principal) | CPT/HCPCS: 11042 ==

== ENCOUNTER 2018-05-19 09:04 | Outpatient (CLI) | END 2018-05-19 09:05 | disposition home or self-care (01) | LOC: WOUND 09:04 | PROVIDERS: ATTEND Nurse Practitioner Family | DX: S91.312A Laceration without foreign body, left foot, initial encounter (principal) ==

== ENCOUNTER 2018-05-24 13:45 | Outpatient (CLI) | payer OTHER | END 2018-05-24 13:46 | disposition home or self-care (01) | LOC: RHC-LAB 13:45 | PROVIDERS: ATTEND Nurse Practitioner Family | DX: E11.9 Type 2 diabetes mellitus without complications (principal); E78.5 Hyperlipidemia, unspecified; D64.9 Anemia, unspecified | CPT/HCPCS: 11042; 36415; 80053; 80061; 82043; 83036; 85025 ==

== ENCOUNTER 2018-05-26 09:22 | Outpatient (CLI) | END 2018-05-26 09:23 | disposition home or self-care (01) | LOC: WOUND 09:22 | PROVIDERS: ATTEND Nurse Practitioner Family | DX: S91.312A Laceration without foreign body, left foot, initial encounter (principal) | CPT/HCPCS: 11042 ==

== ENCOUNTER 2018-06-02 09:38 | Outpatient (CLI) | END 2018-06-02 09:39 | disposition home or self-care (01) | LOC: WOUND 09:38 | PROVIDERS: ATTEND Nurse Practitioner Family | DX: S91.312A Laceration without foreign body, left foot, initial encounter (principal) ==

== ENCOUNTER 2018-06-29 08:13 | Outpatient (CLI) | END 2018-06-29 08:14 | disposition home or self-care (01) | LOC: WOUND 08:13 | PROVIDERS: ATTEND Nurse Practitioner Family | DX: L84 Corns and callosities (principal) ==

== ENCOUNTER 2018-08-09 09:57 | Emergency (ER) | payer OTHER ==
[2018-08-09 10:04] VITALS: BP 198/90; TEMP 98.6; BMI 31.8
--- NOTE | 2018-08-09 10:12 | ED.PDOC ---
General ED Provider: Dr. GRAHAM MIDDLETON Chief Complaint: Hip Pain/Injury Stated Complaint: bilateral hip pain after a fal 90 days ago. fully ambulatory Time Seen by Physician: 10:00 Mode of Arrival: Walk-In Information Source: Patient Exam Limitations: No limitations Primary Care Provider: JOB CHIRINOS Nursing and Triage Documentation Reviewed and Agree: Yes Does patient meet sepsis criteria?: No System Inflammatory Response Syndrome: Not Applicable Sepsis Protocol: For patient's 13 years and over: Temp is 96.8 and below OR 101 and greater Pulse >90 BPM Resp >20/minute Acutely Altered Mental Status Are patient's symptoms suggestive of a new infection, such as: -Pneumonia -Skin, Soft Tissue -Endocarditis -UTI -Bone, Joint Infection -Implantable Device -Acute Abdominal Infection -Wound Infection -Meningitis -Blood Stream Catheter Infection -Unknown Musculoskeletal Complaint Exam - Hip/Pelvis Complaint/Exam Location of Pain: Reports: Right, Left Mechanism of Injury: Reports: Trauma (90 days ago) Onset/Duration: 90 days Symptoms Are: Still present Initial Severity: Mild Current Severity: Mild Location: Reports: Discrete Character: Reports: Dull Aggravating: Reports: None Alleviating: Reports: None Associated Signs and Symptoms: Denies: Swelling, Redness, Bruising, Fever, Weakness, Dizziness, Syncope, Abdominal pain, Knee pain Related History: Reports: Similar episode (90 days) Able to Bear Weight: Yes Septic Arthritis Risk Factors: Reports: None Related Surgical History: Reports: None Pelvis Palpation: Stable Differential Diagnoses: Sprain (pt has fulll rom in the hips and lower back ), Strain Review of Systems - Review Of Systems Constitutional: Reports: No symptoms Eyes: Reports: No symptoms Ears, Nose, Mouth, Throat: Reports: No symptoms Respiratory: Reports: No symptoms Cardiac: Reports: No symptoms GI: Reports: No symptoms : Reports: No symptoms Musculoskeletal: Reports: Joint pain (hips) Skin: Reports: No symptoms Neurological: Reports: No symptoms Endocrine: Reports: No symptoms Hematologic/Lymphatic: Reports: No symptoms All Other Systems: Reviewed and Negative Past Medical History - Past Medical History Previously Healthy: No Endocrine: Reports: Unknown Cardiovascular: Reports: Unknown Respiratory: Reports: Unknown Hematological: Reports: Unknown Gastrointestinal: Reports: Unknown Genitourinary: Reports: Unknown Neuro/Psych: Reports: Unknown Musculoskeletal: Reports: Unknown Cancer: Reports: Unknown Last Menstrual Period: when she was 35 - Surgical History General Surgical History: Reports: Unknown - Family History Family History: Reports: Unknown - Social History Smoking Status: Former smoker Hx Substance Use: No Alcohol Screening: None - Immunizations Tetanus Shot up to Date: Yes Physical Exam - Physical Exam Appearance: Well-appearing, No pain distress, Well-nourished Eyes: LEXI, EOMI, Conjunctiva clear ENT: Ears normal, Nose normal, Oropharynx normal Respiratory: Airway patent, Breath sounds clear, Breath sounds equal, Respirations nonlabored Cardiovascular: RRR, Pulses normal, No rub, No murmur GI/: Soft, Nontender, No masses, Bowel sounds normal, No Organomegaly Musculoskeletal: Normal strength, ROM intact, No edema, No calf tenderness Skin: Warm, Dry, Normal color Neurological: Sensation intact, Motor intact, Reflexes intact, Cranial nerves intact, Alert, Oriented Psychiatric: Affect appropriate, Mood appropriate Critical Care Note - Critical Care Note Total Time (mins): 0 Course - Course Vital Signs: Temp Pulse Resp BP Pulse Ox 08/09/18 09:58 98.6 F 92 H 16 198/90 H 97 Departure - Departure Time of Disposition: 10:13 Disposition: HOME SELF-CARE Discharge Problem: Hip pain Instructions: Hip Pain (ED) Condition: Good Pt referred to PMD for follow-up: Yes IPMP verified?: No Additional Instructions: Please call your Family Physician as soon as possible to schedule a follow-up appointmentmust have m/r/i see your md Prescriptions: Hydrocodone Bit/Acetaminophen [[place] 10-325] 1 each PO Q6HR #4 tablet Allergies/Adverse Reactions: Allergies sulfamethoxazole [From Bactrim] Adverse Reaction (Verified 11/08/17 22:01) "vaginal pain" trimethoprim [From Bactrim] Adverse Reaction (Verified 11/08/17 22:01) "vaginal pain" Home Medications: Ambulatory Orders Hydrocodone Bit/Acetaminophen [[place] 10-325] 1 each PO Q6HR #4 tablet 08/09/18
== END 2018-08-09 10:29 | disposition home or self-care (01) ==
LOC: ED 09:57
DX: M25.552 Pain in left hip (principal); M25.551 Pain in right hip; W19.XXXA Unspecified fall, initial encounter
CPT/HCPCS: 99282

== ENCOUNTER 2018-08-26 09:23 | Outpatient (CLI) ==
--- NOTE | 2018-08-26 10:39 | CT ---
EXAM: CT pelvis without contrast HISTORY: Pain in right hip COMPARISON: None TECHNIQUE: CT pelvis performed without intravenous contrast. Coronal and sagittal reformatted image s obtained. FINDINGS: No fracture or dislocation. Sacroiliac joints intact with mild to moderate degenerative c hange left hip arthroplasty. Mild to moderate osteoarthritis right hip with joint space narrowing, o steophyte formation, and associated subchondral cystic change in the acetabulum. Degenerative change in the spine. Streak artifact from hip arthroplasty limits evaluation of the pelvis. Colonic diver ticulosis. Atherosclerosis. Atherosclerosis that is greatest distally. Minimal fat-containing wood umbilical hernia. IMPRESSION: 1. No fracture or dislocation. 2. Mild to moderate osteoarthritis right hip. 3. Left hip arthroplasty.
== END 2018-08-26 09:24 | disposition home or self-care (01) ==
LOC: RAD 09:23
PROVIDERS: ATTEND Nurse Practitioner Family
DX: E78.5 Hyperlipidemia, unspecified (principal); D64.9 Anemia, unspecified; E11.9 Type 2 diabetes mellitus without complications; I10 Essential (primary) hypertension; M25.551 Pain in right hip; W19.XXXD Unspecified fall, subsequent encounter; Z98.890 Other specified postprocedural states
CPT/HCPCS: 36415; 80053; 80061; 83036; 85025

== ENCOUNTER 2018-09-14 08:43 | Outpatient (CLI) | END 2018-09-14 08:44 | disposition home or self-care (01) | LOC: LAB 08:43 | PROVIDERS: ATTEND Nurse Practitioner Family | DX: E11.9 Type 2 diabetes mellitus without complications (principal); I10 Essential (primary) hypertension; E78.5 Hyperlipidemia, unspecified | CPT/HCPCS: 36415; 80053; 80061; 83036; 84443; 85025 ==

== ENCOUNTER 2020-12-23 15:06 | Inpatient (IN) ==
[2020-12-23 15:12] VITALS: BMI 31.1
--- NOTE | 2020-12-23 15:18 | ED.PDOC ---
General ED Provider: Dr. PHUONG PALAFOX Chief Complaint: Hypertension Stated Complaint: BP up to 200 sys today, caused RODRIGUEZ, no chest pain, compliant with med. Time Seen by Provider: 12/23/20 15:17 Mode of Arrival: Ambulance Information Source: Patient and EMT Exam Limitations: No limitations Primary Care Provider: ROBYN BOLANOS APRN Nursing and Triage Documentation Reviewed and Agree: Yes Does patient meet sepsis criteria?: No System Inflammatory Response Syndrome: Not Applicable Sepsis Protocol: For patient's 13 years and over: Temp is 96.8 and below OR 101 and greater Pulse >90 BPM Resp >20/minute Acutely Altered Mental Status Are patient's symptoms suggestive of a new infection, such as: -Pneumonia -Skin, Soft Tissue -Endocarditis -UTI -Bone, Joint Infection -Implantable Device -Acute Abdominal Infection -Wound Infection -Meningitis -Blood Stream Catheter Infection -Unknown Endocrine Complaint Exam Diabetic Complication Complaint/Exam Onset/Duration: yest high, tx in ED, high again today Symptoms Are: Still present Timing: Constant Initial Severity: Moderate Current Severity: Moderate Character: Alert Aggravating: Reports None Alleviating: Reports None Associated Signs and Symptoms: Denies Decreased LOC, Polydipsia, Polyuria, Polyphagia, Weight loss, Abdominal pain, Nausea, Vomiting, Fever, Diaphoresis or Fruity breath Related History: Reports Similar episode Cardiac Risk Factors: Reports Hypertension CVA Risk Factors: Reports Hypertension Serious Bacterial Infection Risk Factors: Reports None Related Surgical History: Reports None Acetone on Breath: No Dry Mucous Membranes: No Kussmaul Respirations: No Meningeal Signs: No Focal Weakness: None Focal Sensory Loss: None Gait: Normal Differential Diagnoses: Other (uncontrolled HTN) Review of Systems Review Of Systems Constitutional: Reports Weakness Eyes: Reports No symptoms Ears, Nose, Mouth, Throat: Reports No symptoms Respiratory: Reports No symptoms Cardiac: Reports No symptoms GI: Reports Nausea : Reports No symptoms Musculoskeletal: Reports Back pain Skin: Reports No symptoms Neurological: Reports Headache Endocrine: Reports No symptoms Hematologic/Lymphatic: Reports No symptoms All Other Systems: Reviewed and Negative [facility] Medical History Abnormal EKG Anemia Anemia Anterolisthesis Arrhythmia Back pain with left-sided radiculopathy Body aches Bony prominence Burning with urination Callus of foot Cancer Chills Chronic back pain Chronic left hip pain Cough Degenerative disc disease, lumbar Diabetes mellitus Dysuria Elevated systolic blood pressure reading with diagnosis of hypertension Encounter for diabetic foot exam Facet arthropathy, lumbar Glucosuria Hypertension Infected skin lesion Intermittent left-sided chest pain Left knee pain Pain of left shoulder region Pain, dental Proteinuria Sinus pressure Sore throat Stress incontinence Urinary frequency Urinary tract infection UTI (urinary tract infection) Social History Smoking and tobacco status: Former smoker Tobacco: How many years used: 5 Second hand smoke exposure: Yes Alcohol intake: never Substance use type: does not use Traci/orthodox: Yarsani Special traci needs: No Agree to transfusion: Yes Adopted: No Caregiver/support person: Yes Household members: significant other Housing: house Lives independently: Yes Highest education level completed: 8th grade Financial difficulty paying for basics: not applicable service: No Current occupational status: disabled Current occupational exposures/hazards: No Pets and animals: Yes Leisure activites: games and other History of recent travel: No Sexually active: No Do you think of yourself as: straight/heterosexual Current gender identity: female Seatbelt use: never Helmet use: No Drives intoxicated or rides with intoxicated catshovel driver: No Water heater temperature set < 120 degrees: Yes Working smoke detector in home: Yes Fire extinguisher in home: No Carbon monoxide detector in home: Yes Firearms in home: No Surgical History (11/19/15) Cataract extraction and insertion of intraocular lens History of musculoskeletal system surgery Status post hysterectomy Female Reproductive History Menstrual Hx Hysterectomy: No Hx Tubal Ligation: No Physical Exam Physical Exam Appearance: Reports Well-appearing Ill-appearing: Mild Pain Distress: None Eyes: Reports LEXI ENT: Reports Oropharynx normal Neck: Supple Respiratory: Reports Airway patent and Breath sounds clear Cardiovascular: Reports RRR and Pulses normal GI/: Reports Soft Musculoskeletal: Reports Normal strength Skin: Reports Warm and Dry Neurological: Reports Sensation intact and Motor intact Psychiatric: Reports Affect appropriate, Mood appropriate and Anxious Interpretation Radiology Interpretation Radiology Interpretation By: Radiologist Radiology Results: Negative Exam Interpreted: Portable CXR EKG Interpretation Time of EKG #1: 15:21 Rate: Normal Rhythm: Sinus Ectopy: None Gregory: NL ST Segment: Normal Interpretation: WNL Re-Evaluation Re-Evaluation Time of Re-Evaluation: 17:00 Status: Improved Pain Level: BP better Appearance: NAD Lungs: Clear Skin: Warm and Dry Neuro: Alert and Oriented X3 CV: RRR Additional Comments: Low sodium on labs Physician Notification Case Discussed Physician Notified: Dr. Vregara Time of Notification: 17:00 Comments: Admit to hospital, give 100 ml hypertonic saline and recheck labs. Monitor BP. Critical Care Note Critical Care Note Total Critical Care Time (mins): 30 Comments: Hyponatremia can cause serious complications, primarily to brain. Uncontrolled HTN as well, can cause heart damage. Course Course Hematology/Chemistry: 12/23/20 15:36 12/23/20 15:36 Orders, Labs, Meds: Lab Review 12/23/20 12/23/20 15:36 15:36 WBC 8.87 RBC 4.08 L Hgb 11.2 L Hct 32.3 L MCV 79.2 L MCH 27.5 MCHC 34.7 RDW Coeff of Chary 14.0 Plt Count 259 Immature Gran % (Auto) 1.1 Neut % (Auto) 79.0 H Lymph % (Auto) 12.7 Bladen % (Auto) 6.4 Eos % (Auto) 0.6 Baso % (Auto) 0.2 Neut # (Auto) 7.0 H Lymph # (Auto) 1.1 Bladen # (Auto) 0.6 Eos # (Auto) 0.1 Baso # (Auto) 0.0 Immature Gran # (Auto) 0.1 Sodium 118.2 L* Potassium 4.11 Chloride 84.2 L Carbon Dioxide 24.0 Anion Gap 14.11 BUN 12.9 Creatinine 0.53 L Estimated GFR (MDRD) 114.00 BUN/Creatinine Ratio 24.33 Glucose 187.0 H Calcium 9.13 Total Bilirubin 0.37 AST 36.6 H ALT 28.1 Alkaline Phosphatase 89.5 Troponin I < 0.012 Total Protein 7.38 Albumin 4.22 Globulin 3.16 Albumin/Globulin Ratio 1.33 Orders Category Date Time Status EKG-(ED ONLY) Stat CARDIO 12/23/20 15:19 Completed CBC W/ AUTO DIFF Stat LAB 12/23/20 15:36 Completed COMPREHENSIVE METABOLIC PANEL Stat LAB 12/23/20 15:36 Completed TROPONIN I Stat LAB 12/23/20 15:36 Completed Clonidine HCl [Catapres] MEDS 12/23/20 15:26 Discontinued 0.1 mg PO ONCE ONE Clonidine HCl [Catapres] MEDS 12/23/20 16:36 Discontinued 0.1 mg PO ONCE ONE Hydrocodone Bit/Acetaminophen [[place] 7.5-325] MEDS 12/23/20 15:26 Discontinued 1 tab PO ONCE ONE Ondansetron [Zofran Odt] MEDS 12/23/20 16:42 Discontinued 4 mg .ROUTE .STK-MED ONE Ondansetron [Zofran Odt] MEDS 12/23/20 16:36 Discontinued 8 mg PO ONCE ONE CHEST, 1V AP ONLY Stat RADS 12/23/20 15:26 Completed Medications Discontinued Medications Generic Name Dose Route Start Last Admin Trade Name Wangq PRN Reason Stop Dose Admin Hydrocodone Bitart/Acetaminophen 1 tab 12/23/20 15:26 12/23/20 15:37 Hydrocodone Bit/Acetaminophen 7.5/325 Mg Tablet PO 12/23/20 15:27 1 tab ONCE ONE Administration Clonidine 0.1 mg 12/23/20 15:26 12/23/20 15:37 Clonidine Hcl 0.1 Mg Tablet PO 12/23/20 15:27 0.1 mg ONCE ONE Administration Clonidine 0.1 mg 12/23/20 16:36 12/23/20 16:43 Clonidine Hcl 0.1 Mg Tablet PO 12/23/20 16:37 0.1 mg ONCE ONE Administration Ondansetron HCl 8 mg 12/23/20 16:36 12/23/20 16:44 Ondansetron Hcl 4 Mg Tab.Rapdis PO 12/23/20 16:37 8 mg ONCE ONE Administration Vital Signs: Temp Pulse Resp BP Pulse Ox 12/23/20 17:09 80 18 165/76 H 99 12/23/20 16:32 82 18 199/82 H 99 12/23/20 16:14 70 18 160/63 H 98 12/23/20 15:14 79 18 202/94 H 99 12/23/20 15:08 98.6 F 79 20 190/92 H 98 Discharge Plan Discharge Patient Disposition: ADMITTED INPATIENT Discharge Problem: Acute hyponatremia, Accelerated hypertension Prescriptions: No Action amlodipine 5 mg tablet 5 mg PO .every evening Qty: 90 RF: 0 atorvastatin 10 mg tablet See Rx Instructions .ROUTE .COMPLEX Qty: 90 RF: 0 ferrous sulfate 325 mg (65 mg iron) tablet See Rx Instructions .ROUTE .COMPLEX Qty: 90 RF: 0 lisinopril 40 mg tablet 40 mg PO .every morning Qty: 90 RF: 0 metformin 1,000 mg tablet 1,000 mg PO BID Qty: 180 RF: 0 montelukast 10 mg tablet See Rx Instructions .ROUTE .COMPLEX Qty: 90 RF: 0 Januvia 100 mg tablet See Rx Instructions .ROUTE .COMPLEX Qty: 90 RF: 0 hydrochlorothiazide 12.5 mg capsule 12.5 mg PO QAM Qty: 30 RF: 1 (DME) blood-glucose meter Misc See Rx Instructions .ROUTE .MEDSUPPLY Qty: 1 RF: 0 (DME) lancets [OneTouch Delica Lancets] 33 gauge misc See Rx Instructions .ROUTE .MEDSUPPLY Qty: 50 RF: 2 (DME) Blood Glucose Test Strip See Rx Instructions .ROUTE .MEDSUPPLY Qty: 100 RF: 3 ED Provider: PHUONG PALAFOX Condition: Stable Physician Progress Note: [BP elevated, better, likely needs med adjustment. Admission needed to correct low sodium. Cause unclear, no polydypsia reported, diuretics can cause, but she is on low dose, KAREN-I can cause, may be SIADH.]
[2020-12-23] MEDS ORDERED: NORCO 7.5-325 PO ONE (15:26)
[2020-12-23] MEDS ORDERED: CATAPRES PO ONE ×2 (15:26→16:36)
[2020-12-23 15:43] LABS: BASOPHILS % (AUTO) 0.2 % (0.0-3.0); EOSINOPHILS # (AUTO) 0.1 K/ul (0.0-0.7); EOSINOPHILS % (AUTO) 0.6 % (0.0-7.0); HEMATOCRIT 32.3 % (37.0-47.0); HEMOGLOBIN 11.2 g/dl (12.0-16.0); IMMATURE GRANULOCYTE # (AUTO) 0.1 (0.0-1.0); IMMATURE GRANULOCYTE % (AUTO) 1.1 % (0.0-5.0); LYMPHOCYTES # (AUTO) 1.1 K/uL (0.60-3.4); LYMPHOCYTES % (AUTO) 12.7 (10.0-50.0); MEAN CORPUSCULAR HEMOGLOBIN 27.5 pg (27.0-31.0); MEAN CORPUSCULAR HGB CONC 34.7 (31.8-35.4); MEAN CORPUSCULAR VOLUME 79.2 fl (81.0-99.0); MONOCYTES # (AUTO) 0.6 K/uL (0.4-2.0); MONOCYTES % (AUTO) 6.4 (0-10); PLATELET COUNT 259 10^3/uL (140-440); RED BLOOD COUNT 4.08 10^6/ul (4.20-5.40); WHITE BLOOD COUNT 8.87 K/ul (4.6-10.2)
[2020-12-23 15:55] LABS: ALANINE AMINOTRANSFERASE 28.1 U/L (0-35); ALBUMIN 4.22 g/dL (3.5-5.0); ALKALINE PHOSPHATASE 89.5 U/L (53-141); ASPARTATE AMINO TRANSFERASE 36.6 U/L (14-36); BILIRUBIN,TOTAL 0.37 mg/dL (0.2-1.3); BLOOD UREA NITROGEN 12.9 mg/dL (7-17); CALCIUM 9.13 mg/dL (8.4-10.2); CHLORIDE 84.2 mmol/L (98-107); CREATININE 0.53 mg/dL (0.60-1.30); POTASSIUM 4.11 mmol/L (3.5-5.1); TOTAL PROTEIN 7.38 g/dL (6.3-8.2)
--- NOTE | 2020-12-23 15:57 | DI ---
EXAM: Single, portable AP view(s) chest. HISTORY: Chest tightness. COMPARISON: 10/24/2020 TECHNIQUE: Single, portable AP view(s) of the chest. FINDINGS: Lungs: The lung voulmes are normal.The lungs are clear without consolidation or effusion. There are n o suspicious nodules. There is no pneumothorax. Cardiovascular: The heart is enlarged. The pulmonary vasculature is within normal limits.. The aort a is unremarkable. Zainab/Mediastinum: Normal. Osseous structures. Normal for age. IMPRESSION: 1. No acute pulmonary disease. 2. Cardiomegaly.
[2020-12-23 16:21] LABS: SODIUM 118.2 mmol/L (134.5-145)
[2020-12-23 16:22] LABS: TROPONIN I < 0.012 ng/ml (0.0000-0.120)
[2020-12-23] MEDS ORDERED: ZOFRAN ODT PO ONE (16:36)
[2020-12-23] MEDS ORDERED: ZOFRAN ODT ONE (16:42)
[2020-12-23 17:21] LABS: BORDETELLA PARAPERTUSSIS (PCR) NOT DETECTED (NOT DETECT); BORDETELLA PERTUSSIS (PCR) NOT DETECTED (NOT DETECT); CHLAMYDIA PNEUMONIAE (PCR) NOT DETECTED (NOT DETECT); CORONAVIRUS 229E (PCR) NOT DETECTED (NOT DETECT); CORONAVIRUS HKU1 (PCR) NOT DETECTED (NOT DETECT); CORONAVIRUS NL63 (PCR) NOT DETECTED (NOT DETECT); CORONAVIRUS OC43 (PCR) NOT DETECTED (NOT DETECT); HUMAN METAPNEUMOVIRUS (PCR) NOT DETECTED (NOT DETECT); HUMAN RHINOVIRUS/ENTEROV (PCR) NOT DETECTED (NOT DETECT); INFLUENZA B (PCR) NOT DETECTED (NOT DETECT); MYCOPLASMA PNEUMONIAE (PCR) NOT DETECTED (NOT DETECT); PARAINFLUENZA VIRUS 1 (PCR) NOT DETECTED (NOT DETECT); PARAINFLUENZA VIRUS 2 (PCR) NOT DETECTED (NOT DETECT); PARAINFLUENZA VIRUS 3 (PCR) NOT DETECTED (NOT DETECT); PARAINFLUENZA VIRUS 4 (PCR) NOT DETECTED (NOT DETECT); RESPIRATORY SYNCYTIAL V (PCR) NOT DETECTED (NOT DETECT); SARS_COV_2 (PCR) NOT DETECTED (NOT DETECT)
[2020-12-23] MEDS ORDERED: SODIUM CHLORIDE 3% 500 ML IV STA (17:34)
[2020-12-23 18:06] LABS: BILIRUBIN,URINE Negative (NEGATIVE); CLARITY,URINE Clear (CLEAR); COLOR,URINE Yellow (YELLOW); GLUCOSE, URINE (UA) Negative (NEGATIVE); KETONES,URINE Negative (NEGATIVE); LEUKOCYTE ESTERASE ,URINE Negative (NEGATIVE); NITRITE,URINE Negative (NEGATIVE); PROTEIN,URINE 3+ (NEGATIVE); URINE, BLOOD 1+ (NEGATIVE); UROBILINOGEN,URINE 0.2 (0.2)
[2020-12-23 18:11] LABS: ADENOVIRUS (PCR) NOT DETECTED (NOT DETECT)
[2020-12-23 18:11] LABS: SQUAMOUS EPITHELIAL CELL,UR 0-2 (0-5); URINE RBC, MICROSCOPIC 0-2 (0-2); URINE WBC, MICROSCOPIC 0-2 (0-2)
--- NOTE | 2020-12-23 20:28 | PCM ---
Chief Complaint Chief Complaint: HTN and low sodium. History of Present Illness History of Present Illness: 70-year-old female presented to the emergency room today for recall from emergency room visit yesterday December 22, 2020. The patient has been to the emergency room on October 24 for bronchitis and again yesterday for hypertension. The patient met with Dr. Lazcano yesterday at 1919. She presented for hypertension and noted that she bumped her head on the fridge. Her blood pressure was elevated and she denied chest pain. Primary care provider is normally Yvonne Wong APRN. Vital signs at 19:22 December 1820 showed temperature 98.2, pulse 90, respiratory rate 16, blood pressure 207/96 and pulse ox of 99. The patient was given clonidine 0.1 mg number 2 tablets in the emergency room. She was discharged to home. Physical exam benign. Reevaluated at 20:30 and blood pressure was 160/90 without symptoms. Patient was discharged home to follow-up with primary care provider. Patient has history of cataract extraction, musculoskeletal surgery, hysterectomy. She has known history of anemia, anterolisthesis, cardiac arrhythmia, back pain, foot callus, cancer, bronchitis, diabetes, glucosuria, hypertension, arthropathy.There were no labs done yesterday. Head CT done yesterday no acute pathology, cervical spine CT showed no fracture or subluxation, chronic discogenic disease and facet arthrosis. Abdominal ultrasound December 12, 2020 showed focal adenomyomatosis of the gallbladder versus tumefactive sludge. Gallbladder carcinoma cannot be excluded and cholelithiasis was noted. CT chest November 26, 2020 no pneumonia, indeterminate bilateral lung nodules with recommendation for follow-up in 6 months. Cardiomegaly and gallbladder stones noted. She was discharged yesterday and returns again today with elevated blood pressure. She was up to the 200s reported today with some headache no chest pain compliant with home medications. No vision changes. Patient was brought in by ambulance and met with Dr. Urias at 15:17. Vital signs upon arrival show temperature 98.6, pulse 79, respiratory 20, blood pressure 190/92 and pulse ox 98%. Repeat blood pressure at 15:14 showed 202/94, at 16:14 160/63, at 16:32 she was 199/82 and at 17:09 she was 165/76. Review of systems documented weakness no visual changes no cardiac changes headache present. Patient is a nondrug user. Portable chest x-ray today was negative. EKG sinus rhythm no ectopy normal axis ST segment normal. I do not have the EKG to review at time of admission. Labs were collected. Patient had a CBC which showed white blood cell count 8.87, hemoglobin 11.2, hematocrit 32.3 and platelets of 259. The major abnormality noted was a sodium of 118.2 which is a critical low. Potassium was normal at 4.11, chloride low at 84.2. Her creatinine was 0.53 with a GFR of 114. Glucose 187, calcium 9.13, bilirubin 0.37 AST 36.6, ALT 28.1. Troponin was checked and negative. Based on glucose of 187, this corrects to 119 based on the Amria equation and 120 based on Shelton formula. Either way, the patient sodium is low. Urinalysis today shows 3+ protein, negative glucose, 1+ blood. I have asked the emergency room physician for a urine and serum osmolality and a urine sodium. I do not have these. Per his report the patient does not look to be hypovolemic at this time. I was contacted at 1700 today and started the admission process at 20:15. I discussed the case with the emergency room physician and felt the patient needed to be admitted. The patient appears to have a chronic hyponatremia. We checked previous levels and it appears that she has a history of hyponatremia as low as 127.2 back in August 2018. It appears that she has a range of anywhere from 131- 134.9. The patient medications were reviewed with the ER doctor. She is on HCTZ which is a likely cause for her symptoms. Because of her headache I would worry about the low sodium. I have opted to request 100 cc of 3% saline. I will fluid restrict her to no more than 1500 mL. We will have strict I's and O's. I want a repeat CMP in 4 hours. We will monitor her with telemetry. We will cover her with Lovenox for DVT prophylaxis. We will monitor blood pressure , increase amlodipine to 10 mg continue the lisinopril at 40 mg and stop the thiazide diuretic. I will very likely consider Lasix as a loop diuretic may benefit her as well to improve the serum osmolality. Unfortunately many of our labs are send outs. Due to Covid surrounding hospitals are full and we will accommodate patient as it is the best for patient to be treated inpatient locally. The patient has diabetes her last A1c was June at 7.68. I will repeat this for tomorrow morning. Based on her age and medical problems likely a A1c goal of less than 8% is reasonable. We will monitor blood glucose. Bio fire was completed prior to admission and negative nursing notes were reviewed from emergency room visits yesterday and from today. It appeared the patient had emesis x1. We will provide antiemetics to use as needed. Tylenol will be provided for as needed use. After discussion with nursing the patient was started on 3% 30ml/hour. I noted this was not my recommendation on the phone call earlier, and was done without my knowledge. I needed them to stop this NAREN. Per nursing she had not gotten that much. Per nursing she is talkative GCS 15 and within normal limits, RODRIGUEZ is doing better, patient feels better, HCTZ has been held. I personally stopped the order for the 3% saline. REVIEW OF SYMPTOMS: (Positives bolded) General: weight loss, fever, chills, night sweats, fatigue, appetite loss HEENT: blurry vision, eye pain, eye discharge, dry eyes, decreased vision, sore throat tinnitus, bloody nose, hearin gloss, sinus pain/pressure, ear pain/pressure. Respiratory: shortness of breath, cough, hemoptysis, wheezing, pleurisy, Cardiovascular: chest pain, PND, palpitation, edema, orthopnea, syncope, swelling of extremities Gastro: Nausea, vomiting, diarrhea, hematemesis, abdominal pain, constipation Genito: hematuria, dysuria, glycosuria, hesitancy, frequency, incontinence [place]: Arthralgia, myalgia, muscle weakness, joint swelling, NSAID use Skin: rash, pruritis, sores, nail changes, skin thickening, change in wart/mole, itching, rash, new lesions, pruritus, nail changes Neuro: Headache, numbness, ataxia, tremor, vertigo, weakness, memory loss, Irritability, dizziness Endocrine: excessive thirst, polyuria, cold intolerance, heat intolerance, goiter Psychiatric: depression, anxiety, anti-depressants, alcohol abuse, drug abuse, insomnia, change in sleep pattern and mood changes Heme/lymph: easy bruising, bleeding gums, blood clots, swollen glands, lymphedema, Allergic/immune: allergic rhinitis, hay fever, asthma, hives Vital Signs - 24 hr 12/23/20 15:08 12/23/20 15:14 12/23/20 16:14 Temperature 98.6 F Pulse Rate 79 79 70 Respiratory Rate 20 18 18 Blood Pressure 190/92 H 202/94 H 160/63 H O2 Sat by Pulse Oximetry 98 99 98 12/23/20 16:32 12/23/20 17:09 12/23/20 18:15 Temperature Pulse Rate 82 80 Respiratory Rate 18 18 Blood Pressure 199/82 H 165/76 H 119/59 L O2 Sat by Pulse Oximetry 99 99 12/23/20 20:28 Temperature 98.6 F Pulse Rate 80 Respiratory Rate 18 Blood Pressure 119/59 L O2 Sat by Pulse Oximetry 99 Constitutional: Appearance-No acute distress, Consistent with stated age. GCS 15 Orientation- Oriented x 3, alert Build and Nutrition-[normal] General- Patient is pleasant and cooperative with the interview and exam. Integumentary: General-No rashes, ulcers or lesions. Palpation- Normal skin moisture/turgor. Skin is warm to touch, appropriate. Capillary refill is normal bilateral Upper and lower extremity. Small abrasion PSIS left side. Head/Neck: Head- normocephalic and atraumatic. Neck- without visible/palpable lumps or pulsations. Palpation- No bony tenderness about head/neck along frontal, occipital, temporal, parietal, mastoid, jawline, zygoma, orbit or any other location. NO temporal artery tenderness. No TMJ tenderness. Neck Supple. Thyroid-No thyromegaly, no nodules Eye: Bilaterally PERRLA, EOMI. No discharge. Upper and lower eyelids are normal. Sclera/conjunctiva normal without discharge. Cornea is normal and clear. Lens is normal. Eyeball appears normal. No ciliary flushing, no conjunctival injection. ENMT: Pinna- normal without tenderness or erythema. External auditory canal Left- normal without erythema or discharge, no excessive cerumen. External auditory canal Right-normal without erythema or discharge, no excessive cerumen. TM left- Cruz/pearly, normal light reflex and anatomy TM Right- Cruz/pearly, normal light reflex and anatomy Hearing Assessment-normal to conversational speech. Nose and sinus- No sinus tenderness along frontal/maxillary region. External appearance normal and midline. Nares- bilateral quiet airflow, no discharge. Nasal mucosa- No bleeding noted and no ulcerations observed. [place], moist. Turbinates non boggy. Lips- normal color, moist without cracks/lesions Oral Cavity/Palate- hard/soft palate intact without lesions, oral mucosa pink and moist. Tongue normal midline. Oropharynx- no pharyngeal erythema, Uvula midline. No post nasal drip. No exudate. Salivary glands- Non tender to palpation CHEST/LUNG: Inspection- symmetric chest wall no pectus deformity. Normal effort, no distress, no use of accessory muscles. Palpation- nontender sternum, ribline. No abnormal pulsations. Auscultation- Breath sounds normal throughout all lung lara. Normal tracheal sounds, Normal bronchial sounds overlying sternum, Bronchovessicular sounds normal between scapulae posteriorly, Normal vessicular breath sounds heard throughout periphery. Lungs are clear today. Adventitious sounds- No wheezes, rales, rhonchi. CARDIOVASCULAR: Carotid artery- normal, no bruits or abnormal pulsations. Jugular vein- no pulsations. Palpation/Percussion- Normal PMI, no palpable thril l Auscultation- Regular rate and rhythm. No murmur noted in sitting, supine positions. Extremities- no digital clubbing, cyanosis, edema, increased warmth. ABDOMEN: Inspection- normal and no visible pulsations. Normal contour. Auscultation- Bowel sounds normal, no abdominal bruits. Palpation/Percussion- soft, non-tender, no rebound tenderness, no rigidity (guarding), no jar tenderness, no masses. Liver-no hepatomegaly, Spleen no splenomegaly, Hernias - none. Rectal not examined. Peripheral Vascular: Upper extremity Left- Normal temperature with pink nailbeds and no ulcerations. Upper extremity Right- Normal temperature with pink nailbeds and no ulcerations. Lower extremity- Normal temperature with pink nailbeds and no ulcerations. DP pulses 2+ bilaterally. Pedal hair intact. Normal capillary refill. Edema- No edema. Musculoskeletal: Generalized-No generalized swelling or edema of extremities, no digital clubbing or cyanosis, neurovascularly intact all four extremities. Upper extremity- Symmetrical posture. No visible deformity. Normal sensation along medial and lateral upper extremity proximally and distally. NO tenderness overlying shoulder, lateral/medial epicondyle. Junior Sales Assistant 5/5 and strength 5/5 bilateral UE. Elbow palpated, no tenderness overlying olecranon. Normal supination, pronation to active/passive ROM and to resisted rotation. Bicep ins ertion/tricep insertion appear normal without obvious pathology. Rotator cuff evaluated and intact. Normal wrist ROM bilaterally. Normal hand movement, intrinsic muscles of hands normal. No tenderness to palpation of hands/wrists/elbows. Lower extremity- Hip: Not tender to palpation, no pain, no swelling, edema or erythema of surrounding tissue, normal strength and tone. Normal appearing hip ROM bilaterally without pain. Knee: Knee ROM normal. No tenderness overlying trochanters, no tenderness about patella, quad tendon, patellar tendon. No tenderness at tibial tuberosity. Ankle: normal ROM not tender to palpation along medial/lateral malleolus. Foot: Normal movement of toes, no tenderness bilateral feet/toes. Claw Toes present. Spine/Ribs- No deformities, masses or tenderness, no known fractures, normal strength, Normal ROM. Normal stability No tenderness along C/T/L spine. Normal appearing ROM about spine. Neurological: General- Moves all 4 extremities symmetrically. Symmetrical face and body posture. Cranial nerves- individually evaluated II-XII and intact. PERRLA, Normal EOMI, visual/special senses appear intact, Face is symmetrical and normal sensation/movement, normal tongue, normal strength/posture of neck musculature. Reflexes- intact with DTR 2+ patellar, Achilles, bicep, brachial, tricep. Ankle clonus normal with 2 beats. Strength- 5/5 bilateral UE and LE. Soft touch- intact bilateral UE and LE. Temperature sensation- intact bilateral UE and LE. Cerebellar testing-Rapid alternating movements intact. Heel nicole intact. Neuropsych: Oriented- Person, place, time. (AAOx3), Mood/affect- normal and congruent. Able to articulate well. Speech-Normal speech, normal rate, normal tone, normal use of language, volume and coherence. Thought content- normal with ability to perform basic computations and apply abstract thought/reason. Associations- intact, no SI/HI, no hallucinations, delusions, obsessions. Judgment/insight- Appropriate. Memory-Recall intact, remote and recent memory intact. Knowledge- Age appropriate fund of knowledge, concentration and attention span normal. Lymphatic: Head/Neck- normal size and non tender to palpation. Axillary- normal size and non tender to palpation. Femoral and Inguinal- normal size and non tender to palpation. Allergies Allergies Allergy/AdvReac Type Severity Reaction Status Date / Time diclofenac [From Voltaren] AdvReac Severe sick Verified 12/23/20 15:40 sulfamethoxazole AdvReac "vaginal Verified 12/13/20 09:51 [From Bactrim] pain" trimethoprim [From Bactrim] AdvReac "vaginal Verified 12/13/20 09:51 pain" [facility] Medical History Abnormal EKG Acute hyponatremia Anemia Anemia Anterolisthesis Arrhythmia Back pain with left-sided radiculopathy Body aches Bony prominence Burning with urination Callus of foot Cancer Chills Chronic back pain Chronic left hip pain Cough Degenerative disc disease, lumbar Diabetes mellitus Dysuria Elevated systolic blood pressure reading with diagnosis of hypertension Encounter for diabetic foot exam Facet arthropathy, lumbar Glucosuria Hypertension Infected skin lesion Intermittent left-sided chest pain Left knee pain Pain of left shoulder region Pain, dental Proteinuria Sinus pressure Sore throat Stress incontinence Urinary frequency Urinary tract infection UTI (urinary tract infection) Surgical History (11/19/15) Cataract extraction and insertion of intraocular lens History of musculoskeletal system surgery Status post hysterectomy Family History (Updated 12/24/20 @ 06:47 by JAIME MALLOY RN) Other No known health problems Social History Smoking and tobacco status: Former smoker Tobacco: How many years used: 5 Second hand smoke exposure: Yes Alcohol intake: never Substance use type: does not use Traci/caodaism: Christian Special traci needs: No Agree to transfusion: Yes Adopted: No Caregiver/support person: Yes Household members: significant other Housing: house Lives independently: Yes Highest education level completed: 8th grade Financial difficulty paying for basics: not applicable service: No Current occupational status: disabled Current occupational exposures/hazards: No Pets and animals: Yes Leisure activites: games and other History of recent travel: No Sexually active: No Do you think of yourself as: straight/heterosexual Current gender identity: female Seatbelt use: never Helmet use: No Drives intoxicated or rides with intoxicated mobile lounge driver: No Water heater temperature set < 120 degrees: Yes Working smoke detector in home: Yes Fire extinguisher in home: No Carbon monoxide detector in home: Yes Firearms in home: No Medications Medications: Medications Generic Name Dose Route Start Last Admin Trade Name Coty PRN Reason Stop Dose Admin Amlodipine Besylate 5 mg 12/23/20 20:30 Amlodipine Besylate 5 Mg Tablet PO .every evening FAVIOLA Atorvastatin Calcium 0 mg 12/23/20 20:30 Atorvastatin Calcium 10 Mg Tablet PO .COMPLEX FAVIOLA Sodium Chloride 500 mls @ 30 mls/hr 12/23/20 17:34 12/23/20 17:41 Sodium Chloride 3% IV 12/24/20 10:13 30 mls/hr .[id number] STA Administration Lisinopril 40 mg 12/23/20 20:30 Lisinopril 40 Mg Tablet PO .every morning FAVIOLA Metformin HCl 1,000 mg 12/23/20 21:00 Metformin Hcl 500 Mg Tablet PO BID FAVIOLA Montelukast Sodium 0 mg 12/23/20 20:30 Montelukast Sodium 10 Mg Tablet PO .COMPLEX FAVIOLA Non-Formulary Medication 0 mg 12/23/20 20:30 Ferrous Sulfate .ROUTE .COMPLEX FAVIOLA Sitagliptin Phosphate 0 mg 12/23/20 20:30 Sitagliptin Phosphate 50 Mg Tablet PO .COMPLEX FAVIOLA Body Composition Height: 5 ft 1 in Weight: 165 lb Body Mass Index (BMI): 31.1 Vital Signs Temperature: 98.6 F Pulse Rate: 80 Respiratory Rate: 18 Blood Pressure: 119/59 O2 Sat by Pulse Oximetry: 99 Lab/Tests/Diagnostic Imaging Lab/Tests/Diagnostic Imaging: Lab Review 12/23/20 12/23/20 12/23/20 15:36 15:36 16:30 WBC 8.87 RBC 4.08 L Hgb 11.2 L Hct 32.3 L MCV 79.2 L MCH 27.5 MCHC 34.7 RDW Coeff of Chary 14.0 Plt Count 259 Immature Gran % (Auto) 1.1 Neut % (Auto) 79.0 H Lymph % (Auto) 12.7 [place] % (Auto) 6.4 Eos % (Auto) 0.6 Baso % (Auto) 0.2 Neut # (Auto) 7.0 H Lymph # (Auto) 1.1 [place] # (Auto) 0.6 Eos # (Auto) 0.1 Baso # (Auto) 0.0 Immature Gran # (Auto) 0.1 Sodium 118.2 L* Potassium 4.11 Chloride 84.2 L Carbon Dioxide 24.0 Anion Gap 14.11 BUN 12.9 Creatinine 0.53 L Estimated GFR (MDRD) 114.00 BUN/Creatinine Ratio 24.33 Glucose 187.0 H Calcium 9.13 Total Bilirubin 0.37 AST 36.6 H ALT 28.1 Alkaline Phosphatase 89.5 Troponin I < 0.012 Total Protein 7.38 Albumin 4.22 Globulin 3.16 Albumin/Globulin Ratio 1.33 Urine Color Yellow Urine Clarity Clear Urine pH 7.0 Ur Specific [place] 1.025 Urine Protein 3+ H Urine Glucose (UA) Negative Urine Ketones Negative Urine Blood 1+ H Urine Nitrite Negative Urine Bilirubin Negative Urine Urobilinogen 0.2 Ur Leukocyte Esterase Negative Urine Microscopic RBC 0-2 Urine Microscopic WBC 0-2 Ur Squamous Epith Cells 0-2 Adenovirus (PCR) B. pertussis DNA (PCR) B.parapertussis DNA PCR C. pneumoniae DNA (PCR) Coronavirus OC43 (PCR) Coronavirus HKU1 (PCR) Coronavirus 229E (PCR) Coronavirus NL63 (PCR) Human Metapneumovir PCR Influenza Type A (PCR) Influenza B (RT-PCR) M. pneumoniae (PCR) Parainfluenza 1 (PCR) Parainfluenza 2 (PCR) Parainfluenza 3 (PCR) Parainfluenza 4 (PCR) RSV (PCR) Entero/Rhino (PCR) SARS-CoV-2 (PCR) 12/23/20 17:15 WBC RBC Hgb Hct MCV MCH MCHC RDW Coeff of Chary Plt Count Immature Gran % (Auto) Neut % (Auto) Lymph % (Auto) [place] % (Auto) Eos % (Auto) Baso % (Auto) Neut # (Auto) Lymph # (Auto) [place] # (Auto) Eos # (Auto) Baso # (Auto) Immature Gran # (Auto) Sodium Potassium Chloride Carbon Dioxide Anion Gap BUN Creatinine Estimated GFR (MDRD) BUN/Creatinine Ratio Glucose Calcium Total Bilirubin AST ALT Alkaline Phosphatase Troponin I Total Protein Albumin Globulin Albumin/Globulin Ratio Urine Color Urine Clarity Urine pH Ur Specific [place] Urine Protein Urine Glucose (UA) Urine Ketones Urine Blood Urine Nitrite Urine Bilirubin Urine Urobilinogen Ur Leukocyte Esterase Urine Microscopic RBC Urine Microscopic WBC Ur Squamous Epith Cells Adenovirus (PCR) Not detected B. pertussis DNA (PCR) Not detected B.parapertussis DNA PCR Not detected C. pneumoniae DNA (PCR) Not detected Coronavirus OC43 (PCR) Not detected Coronavirus HKU1 (PCR) Not detected Coronavirus 229E (PCR) Not detected Coronavirus NL63 (PCR) Not detected Human Metapneumovir PCR Not detected Influenza Type A (PCR) Not detected Influenza B (RT-PCR) Not detected M. pneumoniae (PCR) Not detected Parainfluenza 1 (PCR) Not detected Parainfluenza 2 (PCR) Not detected Parainfluenza 3 (PCR) Not detected Parainfluenza 4 (PCR) Not detected RSV (PCR) Not detected Entero/Rhino (PCR) Not detected SARS-CoV-2 (PCR) Not detected Orders Category Date Time Status ADMIT PATIENT INPATIENT .TO MEDS[facility] (MONITORED BED) ADMISSION 12/23/20 17:43 Active EKG-(ED ONLY) Stat CARDIO 12/23/20 15:19 Completed EKG-(IP & OP ONLY) DAILY CARDIO 12/24/20 06:00 Ordered BLOOD GLUCOSE MONITORING ACHS CARE 12/23/20 17:43 Active GIVE HS SNACK 2100 CARE 12/23/20 17:44 Active TELEMETRY MONITORING TELE CARE 12/23/20 17:53 Active VITAL SIGNS Q8HR CARE 12/23/20 17:43 Active ADA 1800 MARY. DIET DIETARY 12/24/20 Breakfast Ordered HS SNACK DIETARY 12/23/20 Dinner Ordered CBC W/ AUTO DIFF Stat LAB 12/23/20 15:36 Completed COMPREHENSIVE METABOLIC PANEL DAILY@0600 LAB 12/24/20 06:00 Ordered COMPREHENSIVE METABOLIC PANEL DAILY@0600 LAB 12/25/20 06:00 Ordered COMPREHENSIVE METABOLIC PANEL Stat LAB 12/23/20 15:36 Completed OSMOLALITY,URINE Stat LAB 12/23/20 16:30 Received RESPIRATORY PANEL 2.1 (PCR) Stat LAB 12/23/20 17:15 Completed SERUM OSMOLALITY Routine LAB 12/24/20 06:00 Ordered SODIUM,URINE Stat LAB 12/23/20 16:30 Received TROPONIN I Stat LAB 12/23/20 15:36 Completed UA [URINALYSIS C & S IF INDICATED] Stat LAB 12/23/20 16:30 Completed Amlodipine Besylate [Norvasc] MEDS 12/23/20 20:30 Ordered 5 mg PO .every evening Atorvastatin Calcium [Lipitor] MEDS 12/23/20 20:30 Ordered See Dose Instructions PO .COMPLEX Clonidine HCl [Catapres] MEDS 12/23/20 15:26 Discontinued 0.1 mg PO ONCE ONE Clonidine HCl [Catapres] MEDS 12/23/20 16:36 Discontinued 0.1 mg PO ONCE ONE Hydrocodone Bit/Acetaminophen [[place] 7.5-325] MEDS 12/23/20 15:26 Discontinued 1 tab PO ONCE ONE Lisinopril [Zestril] MEDS 12/23/20 20:30 Ordered 40 mg PO .every morning Metformin HCl [Glucophage] MEDS 12/23/20 21:00 Ordered 1,000 mg PO BID Montelukast Sodium [Singulair] MEDS 12/23/20 20:30 Ordered See Dose Instructions PO .COMPLEX Ondansetron [Zofran Odt] MEDS 12/23/20 16:42 Discontinued 4 mg .ROUTE .STK-MED ONE Ondansetron [Zofran Odt] MEDS 12/23/20 16:36 Discontinued 8 mg PO ONCE ONE Sitagliptin Phosphate [Januvia] MEDS 12/23/20 20:30 Ordered See Dose Instructions PO .COMPLEX Sodium Chloride 3% 500 ml MEDS 12/23/20 17:34 Active IV 30 mls/hr ferrous sulfate MEDS 12/23/20 20:30 Ordered See Dose Instructions .ROUTE .COMPLEX CHEST, 1V AP ONLY Stat RADS 12/23/20 15:26 Completed Medications Generic Name Dose Route Start Last Admin Trade Name Freq PRN Reason Stop Dose Admin Amlodipine Besylate 5 mg 12/23/20 20:30 Amlodipine Besylate 5 Mg Tablet PO .every evening FAVIOLA Atorvastatin Calcium 0 mg 12/23/20 20:30 Atorvastatin Calcium 10 Mg Tablet PO .COMPLEX FAVIOLA Sodium Chloride 500 mls @ 30 mls/hr 12/23/20 17:34 12/23/20 17:41 Sodium Chloride 3% IV 12/24/20 10:13 30 mls/hr .[id number] STA Administration Lisinopril 40 mg 12/23/20 20:30 Lisinopril 40 Mg Tablet PO .every morning FAVIOLA Metformin HCl 1,000 mg 12/23/20 21:00 Metformin Hcl 500 Mg Tablet PO BID FAVIOLA Montelukast Sodium 0 mg 12/23/20 20:30 Montelukast Sodium 10 Mg Tablet PO .COMPLEX FAVIOLA Non-Formulary Medication 0 mg 12/23/20 20:30 Ferrous Sulfate .ROUTE .COMPLEX FAVIOLA Sitagliptin Phosphate 0 mg 12/23/20 20:30 Sitagliptin Phosphate 50 Mg Tablet PO .COMPLEX FAVIOLA Discontinued Medications Generic Name Dose Route Start Last Admin Trade Name Coty PRN Reason Stop Dose Admin Hydrocodone Bitart/Acetaminophen 1 tab 12/23/20 15:26 12/23/20 15:37 Hydrocodone Bit/Acetaminophen 7.5/325 Mg Tablet PO 12/23/20 15:27 1 tab ONCE ONE Administration Clonidine 0.1 mg 12/23/20 15:26 12/23/20 15:37 Clonidine Hcl 0.1 Mg Tablet PO 12/23/20 15:27 0.1 mg ONCE ONE Administration Clonidine 0.1 mg 12/23/20 16:36 12/23/20 16:43 Clonidine Hcl 0.1 Mg Tablet PO 12/23/20 16:37 0.1 mg ONCE ONE Administration Ondansetron HCl 8 mg 12/23/20 16:36 12/23/20 16:44 Ondansetron Hcl 4 Mg Tab.Rapdis PO 12/23/20 16:37 8 mg ONCE ONE Administration Imaging Repeat Head CT today. Yesterday benign CXR today negative. Abd US 12/12/20: 1. Finding at the gallbladder fundus probably represents focal adenomyomatosis or tumefactive sludge in the gallbladder fundus. Gallbladder carcinoma cannot be excluded. 2. Cholelithiasis. 3. Hyperechoic liver most commonly due to steatosis. 4. Assessment (1) Chronic hyponatremia: Status: Acute Code(s): E87.1 - Hypo-osmolality and hyponatremia SNOMED Code(s): 63342764 (2) Essential hypertension: Status: Acute Code(s): I10 - Essential (primary) hypertension SNOMED Code(s): 75430736 Plan Plan: Hyponatremia: 70-year-old female hospital day 1 with severe hyponatremia of value less than 120 mEq/L. This is the most common electrolyte abnormality and has several causes to consider based on patient and history. The etiology is typically classified based on serum osmolality, which is a send out: Hyperosmotic, isoosmotic or hypoosmotic and volume status of patient. The mortality rate for this condition is variable and can be anywhere from 5 to 30% according to literature and increases based on the severity. The patient did have a mention of hitting her head yesterday with negative head CT. I believe I would like to repeat this due to headache blood pressure and sodium. There were no labs done yesterday. There are currently no changes in mental status, but she does have headache. No ataxia focal weakness or hemiparesis noted. There was no mention of dry mucous membranes from the emergency room physician and this was my evaluation as well but the patient does not appear to be hypovolemic and urine output has been good. There does not appear to be any new edema to suggest hypervolemic status. Patient does have diabetes and blood sugar is not terribly out of control. When I correct for the sodium based on sugar she improves to about 120. We will check a TSH, urine sodium, osmolality. Many of these are send out labs and I may not get them back until tomorrow sometime. Due to COVID-19 I do not have access to ICU beds at this time. We will monitor the patient overnight and reassess for need for transfer in the morning. We do not know how chronic her current symptoms are as there was no labs done yesterday. I have opted for a 100 cc bolus of 3% saline over 10 minutes. As noted I do not have nephrology to consult at this time. The goal is to correct the sodium gradually to avoid osmotic demyelination syndrome. Ideally I would like to keep her at a 6 to 8 mEq/L increase over the next 24 hours. The patient has denied polydipsia. She has denied any other changes in diet status. I suspect her sodium is low due to renal losses from the thiazide diuretic. She does have gallbladder finding on recent ultrasound that may suggest malignancy. She has no evidence of renal failure. We will check for hypothyroidism. She has not had any recent steroids however adrenal insufficiency is also on my differential. Weight appears stable compared to 166 12/13/20, 173 on 10/24/20. - Admit inpatient - Telemetry - Strict I+O - CBC/CMP in am - A1C/TSH/BMP now. - Urine/serum osmolality collect/send out - urine sodium collect/send out. - Stop HCTZ - Goal rise in Sodium 4-6 meq/L over next 24 hours with 8meq/L max. - Monitor for mental changes overnight for risks of osmotic demyelination syndrome. - Fluid restrict 1500 ml - Repeat CT head despite negative results 12/22/20. Unknown duration of hyponatremia., Hypertension: We will stop the thiazide diuretic. I will continue the lisinopril 40 mg daily and I will increase the amlodipine to 10 mg. I will also have clonidine 0.1 mg as needed 3 times daily if blood pressure greater than 180 systolic or 100 diastolic. Diabetes: Chronic Diabetes. Goal likely <8% is reasonable for patient. Mild hyperglycemia. We have reviewed medications. I will continue metformin, I will continue the januvia. I will moniitor sugars and consider lantus. May need to stop the metformin if using contrast. Continue for now. Renal function is fine, no need to stop at this time. Discussed need for pneumovax, likely got this after 65, can f/u as outpatient. She would benefit from increased strength of statin medication and we will increase her on lipitor 40 mg based on estimated ascvd risk of 37.2%. Baby ASA may be of benefit as well. BP goal <140/90. She is on Haroon/I. - Start High potency statin. R/B/A d/w patient based on ACC/AHA - Benefits of metformin d/w patient. - Consider added meds as outpatient. - Eye doctor as outpatient - Foot eval as outpatient. Hyperlipidemia: Based on current guidelines the patient has a [37.2]% risk of heart attack/cardiac event over the next 10 years. Recent studies suggest that when values are greater than 7.5% clinicians should consider/discuss statin therapy with the patient as a way to reduce risks of heart attack and potentially stroke. She is on a dose that is too low and below recommended level s. High potency statin recommended and we will change her lipitor from 10mg to 40mg. I would encourage the patient to start this new dose NAREN. Take statin nightly. Repeat lipid panel and CMP in 8 weeks. Major side effects reported in literature include muscle cramps and pain, kidney and liver changes. We will monitor blood work for kidney/liver. Take Rx at night. If any muscle cramps call clinic. - Lipitor change from 10mg to 40mg. Anemia: Mild, monitor with daily CBC as we will be treating with lovenox. Monitor. The patient is currently on iron sulfate the patient had iron level of 104.3 on 03/20/20. Her last ferritin December was 19.10 and a TIBC of 342 with a percent saturation of 19. Mild iron deficiency anemia was present in December but did not seem to be present in March. This has not been continued. She continues to take iron. I will repeat iron studies in the morning. - Cscope as outpatient based on recommendations by GI. - iron studies in the am tomorrow. Likely d/c iron. DVT Prophy: Lovenox 40mg subcut. - Lovenox 40mg subcut. Diet: Diabetic. Activity: Up with assist. Fall precaution. Bed alarm for patient safety. Disposition: The patient has met criteria for severe hyponatremia with headache suggesting neurological sequela. She is at risk for osmotic demyelination syndrome and we need to take this slowly. I suspect 3 to 4-day hospital admission. Patient would likely meet ICU criteria based on sodium less than 120. However due to coronavirus many of these ICU beds are taken out by [facility] patients and patient is at risk for further illness. Duration of H+P, discussion with ED provider, review with nursing, discussion with lab, discussion with patient, 74 minutes (not including documentation).
[2020-12-23] MEDS ORDERED: NORVASC PO SCH ×2 (20:30→20:50)
[2020-12-23] MEDS ORDERED: ZESTRIL PO SCH (20:30)
[2020-12-23] MEDS ORDERED: NON-FORMULARY MEDICATION (Ferrous Sulfate 325 mg (65 mg iron) tablet) SCH (20:30)
[2020-12-23] MEDS ORDERED: LIPITOR PO SCH (20:30)
[2020-12-23] MEDS ORDERED: CATAPRES PO PRN (21:10)
[2020-12-23 21:20] LABS: BLOOD UREA NITROGEN 15.2 mg/dL (7-17); CALCIUM 8.58 mg/dL (8.4-10.2); CARBON DIOXIDE 24.4 mmol/L (22-30.0); CHLORIDE 85.5 mmol/L (98-107); CREATININE 0.63 mg/dL (0.60-1.30); GLUCOSE 180.1 mg/dL (74-106); POTASSIUM 4.43 mmol/L (3.5-5.1)
[2020-12-23 21:24] LABS: SODIUM 118.2 mmol/L (134.5-145)
--- NOTE | 2020-12-23 21:42 | CT ---
EXAM: CT head without contrast HISTORY: Headache COMPARISON: Head CT from yesterday. TECHNIQUE: Helical axial CT of the head was performed without contrast. Coronal and sagittal reconst ructions were performed. FINDINGS: There is no acute intracranial abnormality. There is no hemorrhage, mass, midline shift, abnormal ex tra-axial fluid collection, hydrocephalus or evolving ischemia. The beatty-white matter junction is wel l maintained. There is no evidence of intravascular clot. There is minimal generalized atrophy. Bra in parenchyma, ventricles and sulci are otherwise normal. There are no acute calvarial lesions. Visualized orbits and globes are unremarkable. The mastoid ai r cells demonstrate no significant soft tissue opacification. The visualized paranasal sinuses show n o air-fluid levels. IMPRESSION: 1. No acute intracranial abnormality. There is no hemorrhage or mass or evolving ischemia. All CT scans are performed using dose optimization techniques as appropriate to the performed exam an d include at least one of the following: Automated exposure control, adjustment of the mA and/or kV according t o size, and the use of iterative reconstruction technique.
[2020-12-23 21:48] LABS: THYROID STIMULATING HORMONE 3.04 uIU/L (0.465-4.68)
[2020-12-23] MEDS: LOVENOX SUBCUT SCH (21:56)
[2020-12-23] MEDS: GLUCOPHAGE PO SCH (22:01)
[2020-12-23] MEDS: VISTARIL INJ IM PRN (22:22)
[2020-12-24 05:29] LABS: BASOPHILS % (AUTO) 0.2 % (0.0-3.0); EOSINOPHILS # (AUTO) 0.1 K/ul (0.0-0.7); EOSINOPHILS % (AUTO) 0.6 % (0.0-7.0); HEMATOCRIT 31.1 % (37.0-47.0); HEMOGLOBIN 10.6 g/dl (12.0-16.0); IMMATURE GRANULOCYTE # (AUTO) 0.1 (0.0-1.0); IMMATURE GRANULOCYTE % (AUTO) 0.8 % (0.0-5.0); LYMPHOCYTES # (AUTO) 1.6 K/uL (0.60-3.4); LYMPHOCYTES % (AUTO) 17.3 (10.0-50.0); MEAN CORPUSCULAR HEMOGLOBIN 27.6 pg (27.0-31.0); MEAN CORPUSCULAR HGB CONC 34.1 (31.8-35.4); MONOCYTES # (AUTO) 0.5 K/uL (0.4-2.0); MONOCYTES % (AUTO) 5.9 (0-10); NEUTROPHILS # (AUTO) 6.8 K/ul (2.0-6.9); NEUTROPHILS % (AUTO) 75.2 % (42.2-75.2); PLATELET COUNT 288 10^3/uL (140-440); RDW COEFFICIENT OF VARIATION 14.2 % (11.6-14.8); RED BLOOD COUNT 3.84 10^6/ul (4.20-5.40); WHITE BLOOD COUNT 9.03 K/ul (4.6-10.2)
[2020-12-24 05:44] LABS: ALANINE AMINOTRANSFERASE 23.6 U/L (0-35); ALBUMIN 3.7 g/dL (3.5-5.0); ALKALINE PHOSPHATASE 69.6 U/L (53-141); ASPARTATE AMINO TRANSFERASE 29.6 U/L (14-36); BILIRUBIN,TOTAL 0.23 mg/dL (0.2-1.3); BLOOD UREA NITROGEN 19.2 mg/dL (7-17); CALCIUM 8.57 mg/dL (8.4-10.2); CARBON DIOXIDE 24.4 mmol/L (22-30.0); CHLORIDE 84.8 mmol/L (98-107); CREATININE 0.94 mg/dL (0.60-1.30); GLUCOSE 160.6 mg/dL (74-106); POTASSIUM 4.49 mmol/L (3.5-5.1); TOTAL PROTEIN 6.51 g/dL (6.3-8.2)
[2020-12-24 05:50] LABS: IRON 60.7 ug/dL (37-170)
[2020-12-24 06:17] LABS: FERRITIN 57.5 ng/mL (11.1-264.0)
[2020-12-24 06:20] LABS: SODIUM 118.1 mmol/L (134.5-145)
--- NOTE | 2020-12-24 07:28 | PCM.PROG ---
Date Seen by Provider: 12/24/20 Time Seen by Provider: 07:14 Subjective: 70 yo [facility] HD #2 admitted 12/23/20 with hyponatremia, RODRIGUEZ, long standing history of NIDDM, HTN, seasonal allergies, obesity w/ BMI 31.2. Presented to ED on 12/22 and 12/23 with RODRIGUEZ and found yesterday to have sodium 118.2 corrected to 119-120 based on mild hyperglycemia. I requested ER provider to give 100cc of 3% NS. Instead, she was started on 30meq/L/hour drip of 3% and received 197cc. Repeat 4 hours later showed sodium 118.2. K+ stable at 4.43. Glucose 180.1. Calcium 8.58. Creatine 0.63 and stable with GFR 93. I repeated the CT head last night due to history of RODRIGUEZ and unknown duration of symptoms (no labs done ER visit 12/22/20 for HTN). Negative CT head done on 12/23/20 no acute process, no hemorrhage, mass or ischemia. Initial sodium/urine osmolality are send outs and not yet back. Urine sodium not yet back. TSH returned 3.040 suggesting no e/o hypothyroidism. Iron studies were ordered and returned this am. Iron 60.7, TIBC low at 257, %saturation 24 and ferritin 57.50. This does not suggest iron deficiency and I will stop the ferrous sulfate. AMN labs showed WBC 9.03, hgb dropped from 11.2 to 10.6. Plt increased from 249 to 288. Chronic normocycic anemia at baseline back to at least 09/16/19. CMP this am showed unchanged sodium at 118.1. I will provide 100cc of 3% NS, and repeat BMP in 2 hours. We will continue to use 100cc bolus until sodium 120-124meq/L. Returning to CMP, K+ stable 4.49, cl low at 84.8. I have stopped her hctz. I have provided fluid restriction. Remains afebrile. Pulse rate 52-57 overnight. Regarding her BP, I have increased her amlodipine to 10mg daily, stopped the hctz, continued lisinopril 40mg daily. She h ad 119/59 x 2 last night, then 110/62, 104/61, 121/68. Readings in ED up to 202/94. She did have RODRIGUEZ last night, nausea/dry heavving worse after norco given in ED. RR 16-20. O2 96-99% on RA. She has been on telemetry and has had SR, SB and e/o 1st degree AVB. IL 0.2 to 0.22. I+O monitored overnight. 20:00-23:59. She had 200 ml output, Looking at data she had 200 ml in and 200 ml out from 04:00 to present. Last BM 24 hours prior to admit, normal per patient, no bleeding. The patient is on lovenox for DVT prophy. I have ordered vistaril for RODRIGUEZ as per nursing request. Zofran has not helped with nausea. I did authorize to hold PM dose of metformin and statin. Overnight nursing notes reviewed. Slept majority of the night w/o c/o N/V. Continue 1500ml fluid restriction. A1C 8.26. Patient this am has no c/o other than reported headache, no fever, no vision changes, no loss of taste/smell, No new URI symptoms, no worsening allergy symptoms, no c ough/congestion/wheezing/SOA, No CP, reported fatigue (unchanged), no new abd pain (GB disease known), no N/V/D since last night, no constipation, no changes in urination/stooling, no new MSK pain, no recent injuries except as listed above. She notes feeling better, slept okay. REVIEW OF SYMPTOMS: (Positives bolded) General: weight loss, fever, chills, night sweats,fatigue,appetite loss HEENT: blurry vision, eye pain, eye discharge, dry eyes, decreased vision, sore throat tinnitus, bloody nose, hearin gloss, sinus pain/pressure, ear pain/pressure. Respiratory:shortness of breath,cough, hemoptysis, wheezing, pleurisy, Cardiovascular:chest pain, PND, palpitation, edema, orthopnea, syncope, swelling of extremities Gastro: Nausea, vomiting (RESOLVED),diarrhea, hematemesis, abdominal pain, constipation Genito:hematuria, dysuria, glycosuria, hesitancy, frequency, incontinence Musckelo: Arthralgia,myalgia, muscle weakness, joint swelling, NSAID use Skin:rash, pruritis, sores, nail changes, skin thickening, change in wart/mole, itching, rash, new lesions,pruritus, nail changes Neuro: Headache,numbness, ataxia, tremor, vertigo,weakness, memory loss, Irritability, dizziness Endocrine:excessive thirst, polyuria, cold intolerance, heat intolerance, goiter Psychiatric:depression, anxiety, anti-depressants, alcohol abuse, drug abuse, insomnia, change in sleep pattern and mood changes Heme/lymph:easy bruising, bleeding gums, blood clots, swollen glands, lymphedema, Allergic/immune:allergic rhinitis, hay fever, asthma, hives Objective: Vital Signs - 24 hr 12/23/20 15:08 12/23/20 15:14 12/23/20 16:14 Temperature 98.6 F Pulse Rate 79 79 70 Respiratory Rate 20 18 18 Blood Pressure 190/92 H 202/94 H 160/63 H O2 Sat by Pulse Oximetry 98 99 98 12/23/20 16:32 12/23/20 17:09 12/23/20 18:15 Temperature Pulse Rate 82 80 Respiratory Rate 18 18 Blood Pressure 199/82 H 165/76 H 119/59 L O2 Sat by Pulse Oximetry 99 99 12/23/20 20:27 12/23/20 20:28 12/23/20 20:40 Temperature 97.6 F 98.6 F Pulse Rate 57 L 80 Respiratory Rate 16 18 20 Blood Pressure 119/59 L O2 Sat by Pulse Oximetry 96 99 12/23/20 22:00 12/24/20 01:58 12/24/20 05:09 Temperature 97.6 F 97.1 F L 97.7 F Pulse Rate 57 L 52 L 56 L Respiratory Rate 20 16 18 Blood Pressure 110/62 104/61 121/68 O2 Sat by Pulse Oximetry 96 97 97 Constitutional:Appearance-No acute distress, Consistent with stated age. GCS 15Orientation- Oriented x 3, alertBuild and Nutrition-[obese]General- Patient is pleasant and cooperative with the interview and exam. Integumentary: General-No rashes, ulcers or lesions.Palpation- Normal skin moisture/turgor. Skin is warm to touch, appropriate. Capillary refill is normal bilateral Upper and lower extremity. Small abrasion left PSIS. Will monitor. Head/Neck:Head- normocephalic and atraumatic.Neck- without visible/palpable lumps or pulsations.Palpation- No bony tenderness about head/neck along frontal, occipital, temporal, parietal, mastoid, jawline, zygoma, orbit or any other location. NO temporal artery tenderness. No TMJ tenderness. Neck Supple.Thyroid-No thyromegaly, no nodules Eye:Bilaterally PERRLA, EOMI. No discharge. no photophobia. ENMT:Nose and sinus- No sinus tenderness along frontal/maxillary region. External appearance normal and midline.Nares- bilateral quiet airflow, no discharge.Nasal mucosa- No bleeding noted and no ulcerations observed. [place], moist. Turbinates non boggy.Lips-normal color, moist without cracks/lesions Oral Cavity/Palate- hard/soft palate intact without lesions, oral mucosa pink and moist. Tongue normal midline.Oropharynx- no pharyngeal erythema, Uvula midline. No post nasal drip. No exudate.Salivary glands- Non tender to palpation CHEST/LUNG:Inspection- symmetric chest wall no pectus deformity. Normal effort, no distress, no use of accessory muscles.Palpation- nontender sternum, rib line. No abnormal pulsations.Auscultation- Breath sounds normal throughout all lung lara. Normal tracheal sounds, Normal bronchial sounds overlying sternum, Bronchovessicular sounds normal between scapulae posteriorly, Normal vessicular breath sounds heard throughout periphery. Lungs are clear today. Adventitious sounds- No wheezes, rales, rhonchi. CARDIOVASCULAR:Carotid artery-normal, no bruits or abnormal pulsations. Jugular vein- no pulsations.Palpation/Percussion- Normal PMI, no palpable thrill Auscultation- Regular rate and rhythm. No murmur noted in sitting, supine positions.Extremities- no digital clubbing, cyanosis, edema, increased warmth. ABDOMEN:Inspection- normal and no visible pulsations. Normal contour. Auscultation- Bowel sounds normal, no abdominal bruits.Palpation/Percussion- soft, non-tender, no rebound tenderness, no rigidity (guarding), no jar tenderness, no masses.Liver-no hepatomegaly,Spleen no splenomegaly,Hernias - none. Peripheral Vascular:Upper extremityLeft- Normal temperature with pink nailbeds and no ulcerations.Upper extremity Right-Normal temperature with pink nailbeds and no ulcerations.Lower extremity- Normal temperature with pink nailbeds and no ulcerations. DP pulses 2+ bilaterally. Pedal hair intact. Normal capillary refill.Edema- No edema. Musculoskeletal:Generalized-No generalized swelling or edema of extremities, no digital clubbing or cyanosis, neurovascularly intact all four extremities. Claw toes. No changes in feet/legs. Neurological:General- Moves all 4 extremities symmetrically. Symmetrical face and body posture.Cranial nerves- individually evaluated II-XII and intact. PERRLA, Normal EOMI, visual/special senses appear intact, Face is symmetrical and normal sensation/movement, normal tongue, normal strength/posture of neck musculature. Neuropsych:Oriented- Person, place, time. (AAOx3),Mood/affect- normal and congruent. Able to articulate well.Speech-Normal speech, normal rate, normal tone, normal use of language, volume and coherence. Lymphatic: Head/Neck- normal size and non tender to palpation.Axillary- normal size and non tender to palpation.Femoral and Inguinal- normal size and non tender to palpation. CBC WBC 9.03 K/ul (4.6-10.2) 12/24/20 04:54 Hgb 10.6 g/dl (12.0-16.0) L 12/24/20 04:54 Hct 31.1 % (37.0-47.0) L 12/24/20 04:54 Plt Count 288 10^3/uL (140-440) 12/24/20 04:54 CMP 12/23/20 12/23/20 12/24/20 15:36 21:00 04:54 Sodium 118.2 L* 118.2 L* 118.1 L* Potassium 4.11 4.43 4.49 Chloride 84.2 L 85.5 L 84.8 L Carbon Dioxide 24.0 24.4 24.4 Anion Gap 14.11 12.73 13.39 BUN 12.9 15.2 19.2 H Creatinine 0.53 L 0.63 0.94 BUN/Creatinine Ratio 24.33 24.12 20.42 Glucose 187.0 H 180.1 H 160.6 H Calcium 9.13 8.58 8.57 Iron AST 36.6 H 29.6 ALT 28.1 23.6 Total Protein 7.38 6.51 Albumin 4.22 3.70 Globulin 3.16 2.81 12/24/20 04:54 Sodium Potassium Chloride Carbon Dioxide Anion Gap BUN Creatinine BUN/Creatinine Ratio Glucose Calcium Iron 60.7 AST ALT Total Protein Albumin Globulin (1) Chronic hyponatremia: Status: Acute Code(s): E87.1 - Hypo-osmolality and hyponatremia SNOMED Code(s): 88012543 (2) Essential hypertension: Status: Acute Code(s): I10 - Essential (primary) hypertension SNOMED Code(s): 93431173 Plan: Hyponatremia:70-year-old female hospital day 2 with severe hyponatremia of value less than 120 mEq/L. I had stopped the 3% drip that was started last night after 200cc given. Repeat sodium unchanged, this am repeat sodium unchanged. I+O reasonable. 200cc measured in 4 hours, 1.6ml/kg/hour is actually on the higher end. Osmolality studies are not yet back, urine sodium is not yet back. HCTZ held, DM meds continued. She only c/o mild RODRIGUEZ this am, else no c/o. No N/V/D, no body aches, pain, chills. Cognitively aware. Frontal RODRIGUEZ mildly w/o any other sequelae. I have reordered 100cc of 3% salinne. Will check bmp again in 2 hours. Will repeat this a total of 3x today and monitor for up to 8meq/L change in sodium. DDX is vast at this point without the osmolality data. CBC/CMP to continue q am. Meds to continue as listed. I did add tylenol for RODRIGUEZ. Avoid opiates at this time as they caused her to have significant nausea and dry heaving. Goal will be to continue to correct sodium gradually to prevent osmotic demyelination syndrome. She denies polydipsia. She has again denied any other changes in diet status. I still suspect her sodium is low due to renal losses from the thiazide diuretic. However, the important data is pending as send out status. TSH suggests not hypothyroid. This can be removed from DDX at this time. I had ordered repeat BMP for 2 hours after infusion. This was accidentally drawn before the infusion. Order replaced. - Admit inpatient - Continue Telemetry - Strict I+O - CBC/CMP q am - Urine/serum osmolality collect/send out PENDING - urine sodium collect/send out PENDING - Stop HCTZ - Goal rise in Sodium 4-8 meq/L over next 24 hours with 8meq/L max. - Monitor for mental changes for risks of osmotic demyelination syndrome. - Fluid restrict 1500 ml per day Hypertension:Stable since admit. Continue to stop the thiazide diuretic. I will continue the lisinopril 40 mg daily and I will continue with the increase in amlodipine to 10 mg. I use clonidine 0.1 mg sparingly 2 times daily if blood pressure greater than 180 systolic or 100 diastolic. Diabetes:Chronic Diabetes. A1C returned 8.26, up from 7.68. I do not want to add SGLT2 at this time. She is on DPPIV. We may need low dose lantus at night. I will start this while she is here. 10 units lantus to start at night. Goal to keep BG 120-150 through hospital stay. I will not use prandial insulin at this time. Will monitor AC accuchecks and may adjust over next few days. Overall Goal likely <8% is reasonable for patient. Mild hyperglycemia. We have reviewed medications. I will continue metformin, I will continue the januvia. I would also continue increased strength of statin, with lipitor 40mg nightly. Estimated ascvd risk of 37.2%. Baby ASA may be of benefit as well (outpatient). BP goal <140/90. She is on Haroon/I. - Start High potency statin. R/B/A d/w patient based on ACC/AHA - Benefits of metformin d/w patient. - lantus 10 units daily in am. - Eye doctor as outpatient - Foot eval as outpatient. Hyperlipidemia: Based on current guidelines the patient has a [37.2]% risk of heart attack/cardiac event over the next 10 years. Recent studies suggest that when values are greater than 7.5% clinicians should consider/discuss statin therapy with the patient as a way to reduce risks of heart attack and potentially stroke. She is on a dose that is too low and below recommended levels. High potency statin recommended and we will change her lipitor from 10mg to 40mg. I would encourage the patient to start this new dose NAREN. Take statin nightly. Repeat lipid panel and CMP in 8 weeks. Major side effects reported in literature include muscle cramps and pain, kidney and liver changes. We will monitor blood work for kidney/liver. Take Rx at night. If any muscle cramps call clinic. - Lipitor change from 10mg to 40mg. This will start tonight 12/24/20. Anemia:Mild, monitor with daily CBC as we will be treating with lovenox. Monitor. The patient is currently on iron sulfate the patient had iron level of 104.3 on 03/20/20. This has been stopped based on labs. She is not iron deficient. - Cscope as outpatient based on recommendations by GI. - Fecal occult blood to be ordered. DVT Prophy:Lovenox 40mg subcut. - Lovenox 40mg subcut. Diet:Diabetic. Activity:Up with assist. Fall precaution. Bed alarm for patient safety. Disposition:The patient has continued to meet criteria for severe hyponatremia with mild headache suggesting neurological sequela. She is at risk for osmotic demyelination syndrome and we need to take this slowly. She received 200cc of 3% saline last night, no change on repeat labs. This am no change. D/C planning on going. I will repeat 100CC of 3% this am, check BMP 2 hours later, and repeat this x 3 until 4-8meq/L change. Fluid restriction to continue, HCTZ stopped, I will add lantus 10units daily starting this am. Continue ac/hs accuchecks. I suspect 3 to 4-day hospital admission. Patient would likely meet ICU criteria based on sodium less than 120. However due to coronavirus many of these ICU beds are taken out by [facility] patients and patient is at risk for further illness. Duration of rounding this am, discussion with pharmacy, floor nursing, review of telemetry, review of labs, discussion with patient, 45 minutes. Including documentation, time spent on patient this am 7:14-8:14.
[2020-12-24] MEDS ORDERED: SODIUM CHLORIDE 3% 100 ML IV ONE ×2 (07:30→11:48)
[2020-12-24] MEDS: TYLENOL PO PRN ×2 (08:40→22:05)
[2020-12-24] MEDS: LANTUS SUBCUT SCH (09:05)
[2020-12-24] MEDS: LOVENOX SUBCUT SCH (09:06)
[2020-12-24] MEDS: GLUCOPHAGE PO SCH ×2 (09:07→17:34)
[2020-12-24] MEDS: FERROUS SULFATE PO SCH (09:07)
[2020-12-24 11:20] LABS: BLOOD UREA NITROGEN 23.1 mg/dL (7-17); CALCIUM 8.71 mg/dL (8.4-10.2); CARBON DIOXIDE 25.7 mmol/L (22-30.0); CHLORIDE 85.1 mmol/L (98-107); CREATININE 0.98 mg/dL (0.60-1.30); GLUCOSE 176.1 mg/dL (74-106); POTASSIUM 4.17 mmol/L (3.5-5.1); SODIUM 120.1 mmol/L (134.5-145)
[2020-12-24] MEDS ORDERED: SODIUM CHLORIDE 3% 500 ML IV SCH (11:30)
[2020-12-24] MEDS: JANUVIA PO SCH (11:44)
[2020-12-24] MEDS: ZESTRIL PO SCH (11:44)
[2020-12-24] MEDS: SINGULAIR PO SCH (11:44)
[2020-12-24 14:31] LABS: BLOOD UREA NITROGEN 24.3 mg/dL (7-17); CALCIUM 8.85 mg/dL (8.4-10.2); CARBON DIOXIDE 25.2 mmol/L (22-30.0); CHLORIDE 86.4 mmol/L (98-107); CREATININE 1.02 mg/dL (0.60-1.30); GLUCOSE 133.4 mg/dL (74-106); POTASSIUM 4.26 mmol/L (3.5-5.1); SODIUM 122.8 mmol/L (134.5-145)
[2020-12-24] MEDS ORDERED: NAPROSYN PO ONE (15:09)
[2020-12-24] MEDS: NORVASC PO SCH (17:35)
[2020-12-24] MEDS: LIPITOR PO SCH (20:31)
[2020-12-25] MEDS ORDERED: MORPHINE 2 MG/ML SYRINGE IVP STA (05:03)
[2020-12-25] MEDS ORDERED: MORPHINE 2 MG/ML SYRINGE IVP PRN (05:03)
[2020-12-25 05:25] LABS: BASOPHILS % (AUTO) 0.4 % (0.0-3.0); EOSINOPHILS # (AUTO) 0.2 K/ul (0.0-0.7); EOSINOPHILS % (AUTO) 2.4 % (0.0-7.0); HEMATOCRIT 31.3 % (37.0-47.0); HEMOGLOBIN 10.7 g/dl (12.0-16.0); IMMATURE GRANULOCYTE # (AUTO) 0.1 (0.0-1.0); IMMATURE GRANULOCYTE % (AUTO) 0.8 % (0.0-5.0); LYMPHOCYTES # (AUTO) 2.2 K/uL (0.60-3.4); LYMPHOCYTES % (AUTO) 29.8 (10.0-50.0); MEAN CORPUSCULAR HEMOGLOBIN 28.2 pg (27.0-31.0); MEAN CORPUSCULAR HGB CONC 34.2 (31.8-35.4); MEAN CORPUSCULAR VOLUME 82.4 fl (81.0-99.0); MONOCYTES # (AUTO) 0.7 K/uL (0.4-2.0); MONOCYTES % (AUTO) 9.2 (0-10); NEUTROPHILS # (AUTO) 4.1 K/ul (2.0-6.9); NEUTROPHILS % (AUTO) 57.4 % (42.2-75.2); PLATELET COUNT 276 10^3/uL (140-440); RDW COEFFICIENT OF VARIATION 14.4 % (11.6-14.8); WHITE BLOOD COUNT 7.21 K/ul (4.6-10.2)
[2020-12-25 05:31] LABS: ALBUMIN 3.85 g/dL (3.5-5.0); ALKALINE PHOSPHATASE 75.5 U/L (53-141); ASPARTATE AMINO TRANSFERASE 30.7 U/L (14-36); BILIRUBIN,TOTAL 0.24 mg/dL (0.2-1.3); BLOOD UREA NITROGEN 24.1 mg/dL (7-17); CALCIUM 8.91 mg/dL (8.4-10.2); CARBON DIOXIDE 22.3 mmol/L (22-30.0); CHLORIDE 93.6 mmol/L (98-107); CREATININE 0.67 mg/dL (0.60-1.30); GLUCOSE 126.4 mg/dL (74-106); POTASSIUM 4.48 mmol/L (3.5-5.1); SODIUM 124.8 mmol/L (134.5-145); TOTAL PROTEIN 6.79 g/dL (6.3-8.2)
[2020-12-25] MEDS: VISTARIL INJ IM PRN ×2 (05:34→07:57)
[2020-12-25 05:42] LABS: TROPONIN I < 0.012 ng/ml (0.0000-0.120)
--- NOTE | 2020-12-25 07:16 | PCM.PROG ---
Date Seen by Provider: 12/25/20 Time Seen by Provider: 07:07 Subjective: 70 yo CF HD #3 admitted on 12/23/20 with severe hyponatremia and headache. She has long standing history of NIDDM, HTN, seasonal allergies, obesity w/ BMI 31.2. Presented to ED on 12/22 and 12/23 with RODRIGUEZ and on admit had sodium 118.2 corrected to 119-120 based on mild hyperglycemia. She received ~200cc of 3% saline on day 1 with minimal change. 100 cc yesterday am of 3% saline with repeat BMP sodium 120.1 (up from 118.1mmol/L), K+ 4.17, cl 85.1, cr 0.98, glucose 176.1. Repeat 3% saline 100 cc over 10-15 minutes followwed by BMP at 1315 showed sodium up to 122.8 mmol/L (120.1 prior), K+ 4.26, cl 86.4, bun 24.3, cr 1.02, glucose 133.4, calcium 8.85. No further 3% saline was given. This am labs showed CMP with sodium 124.8 mmol/L (up from 122.8 yesterday and a 6 mmol/L increase from previous 24 hours), cr 0.67, glucose 126.4. Calcium 8.91. Troponin this am negative. CBC showed WBC 7.21, hgb 10.7 (up from 10.6 yesterday), plt 276 and remainder of differential WNL. TSH returned 12/23 as normal. I still do not have serum/urine osmolality or urine sodium. The HCTZ has been held as per admission H+P. She has had increase in her lipitor from 10mg at admit to 40mg as her ASCVD score is elevated. The cause of the hypnotremia is not yet known as my limiting factor remains send out labs. I do not yet have the information from the initial osmolality tests to adjust the algorithm. No additional imaging in last 24 hours. Vitals showed the patient has remained afebrile. Blood pressures have been somewhat elevated after 1800 last night. She was 140/73 at 1800, she was 192/78 at 2114, 168/78 at 2152, 150/74 2256, normal at 152 this morning 136/72 and at 6 AM was 151/70. She does have clonidine ordered as needed. Respiratory rate has been 16-19 unlabored and she has remained 96 to 98% on room air with a single drop yesterday at 9 in the morning of 94%. Telemetry reviewed overnight she did have evidence of first-degree AV block VA interval slightly prolonged 0.26 and 0.28 last 2 checks. QRS remains normal. I have requested strict I's and O's but it appears volumes are not being measured. She had 4 voids documented between 8 PM and midnight with a total of 750 mils documented yesterday.Fingerstick glucose monitored over the last 24 hours she had 185 11 yesterday, 119 at 1700, 171 at 1954, 128 at 458 this morning and 126 at 610.Overnight nursing reviewed. Patient is complained about general body aches and refused Tylenol. She was given a naproxen x1 and pain resolved. I discussed with nursing yesterday to limit NSAIDs due to use of Lovenox. Note from nurse Silvio at 2114 showed that patient has been noncompliant with fall precautions. She does not want to call staff for help and became upset when the bed alarm sounded. Education reinforced about fall precautions. 509 this morning I was contacted by floor nurse. Patient alerted nurse that she was having chest pain after returning to the bathroom dizzy and sick to her stomach burning chest pain across the entire chest. Per nursing skin was warm and dry she was not diaphoretic. The pain did not radiate. No visible distress was noted. Vital signs were obtained blood pressure 164/68, SPO2 95% on room air, on telemetry without changes. EKG was obtained not available to me at this time. This is awaiting cardiology read. Accu-Chek was obtained and 128. Patient requested stronger pain medicine. She did not do well with hydrocodone. I did order morphine 2 mg every 6 hours and a troponin series.Lovenox for DVT prophylaxis to continue. Discussed need to be compliant with patient today. She has not been following with the recommended guidelines and getting up despite recommended need to use nursing services. I will provide Toradol 30 mg IV to her. We have discussed NSAIDs and concerned risk for GI bleed. She is not had a bowel movement in last 48 hours. She complains of pain from the tip of her head down to the bottoms of her toes. With eyes closed she complains of pain. She had no grimace, no wincing when evaluating arms legs abdomen torso or chest wall. student ministry pastor present during this evaluation. Patient is not diaphoretic. Pupils are round reactive and equal to light. She reports frontal headache. This may be migrainous and Toradol may help. She just wants to rest. I discussed the use of the Vistaril. I suspect she has an anxiety component. She is aware of the day date time. GCS of 15. When I discussed possible discharge in 24 to 48 hours she looked at me and said "oh no I will ." I asked her what she will from and she said this pain and my heart attack. I noted to her again that her labs look fine at this point her sodium is better discussed the troponin is normal and there are no changes on telemetry. I noted she is not having a heart attack. She said but I will . I said from what she said my head pain I said you have had 2 normal head CTs in the last 48 hours there have been no changes to your neurological status, full cranial nerve examination performed today was negative. Rapid alternating movement was normal. Tgneln-bj-icti was normal. I will have physical therapy walker today. She denied this stating she was in too much pain. I said we would provide her with something for pain we will give her some Vistaril to help to calm down the pain and the symptoms of concern for pain and we will have physical therapy assist to walk with the patient today. We need to continue to limit fluids we need to continue to focus on improved health. She denied essentially everything that I offered her today. I offered her medications to help her have a BM. She did not want that. I asked that she follow with nursing and make sure to listen to their recommendations. I discussed plan for d/c home when levels of sodium >130. REVIEW OF SYMPTOMS: (Positives bolded) General: weight loss, fever, chills, night sweats,fatigue,appetite loss HEENT: blurry vision, eye pain, eye discharge, dry eyes, decreased vision, sore throat tinnitus, bloody nose, hearin gloss, sinus pain/pressure, ear pain/pressure. Respiratory:shortness of breath,cough, hemoptysis, wheezing, pleurisy, Cardiovascular:chest pain, PND, palpitation, edema, orthopnea, syncope, swelling of extremities Gastro: Nausea, vomiting,diarrhea, hematemesis, abdominal pain, constipation Genito:hematuria, dysuria, glycosuria, hesitancy, frequency, incontinence Musckelo: Arthralgia,myalgia, muscle weakness, joint swelling, NSAID use Skin:rash, pruritis, sores, nail changes, skin thickening, change in wart/mole, itching, rash, new lesions,pruritus, nail changes Neuro: Headache,numbness, ataxia, tremor, vertigo,weakness, memory loss, Irritability, dizziness Endocrine:excessive thirst, polyuria, cold intolerance, heat intolerance, goiter Psychiatric:depression, anxiety, anti-depressants, alcohol abuse, drug abuse, insomnia, change in sleep pattern and mood changes Heme/lymph:easy bruising, bleeding gums, blood clots, swollen glands, lymphedema, Allergic/immune:allergic rhinitis, hay fever, asthma, hives Objective: Vital Signs - 24 hr 12/24/20 09:12 12/24/20 13:56 12/24/20 18:00 Temperature 97.8 F 97.9 F 98.2 F Pulse Rate 58 L 59 L 71 Respiratory Rate 16 18 16 Blood Pressure 101/58 L 138/72 140/73 O2 Sat by Pulse Oximetry 94 L 97 97 12/24/20 20:00 12/24/20 21:14 12/24/20 21:52 Temperature 97.9 F Pulse Rate 82 88 Respiratory Rate 16 18 19 Blood Pressure 192/78 H 168/78 H O2 Sat by Pulse Oximetry 97 12/24/20 22:56 12/25/20 01:52 12/25/20 06:00 Temperature 97.9 F 97.4 F L Pulse Rate 87 66 65 Respiratory Rate 18 18 16 Blood Pressure 150/74 H 136/71 151/70 H O2 Sat by Pulse Oximetry 98 96 Constitutional:Appearance-No acute distress, Consistent with stated age. GCS 15Orientation- Oriented x 3, alertBuild and Nutrition-[obese]General- Patient is argumentative today. Integumentary: General-No rashes, ulcers or lesions.Palpation- Normal skin moisture/turgor. Skin is warm to touch, appropriate. Capillary refill is normal bilateral Upper and lower extremity. Small abrasion left PSIS. Will monitor. Head/Neck:Head- normocephalic and atraumatic.Neck- without visible/palpable lumps or pulsations.Palpation- No bony tenderness about head/neck along frontal, occipital, temporal, parietal, mastoid, jawline, zygoma, orbit or any other location. NO temporal artery tenderness. No TMJ tenderness. Neck Supple.Thyroid-No thyromegaly, no nodules Eye:Bilaterally PERRLA, EOMI. No discharge. ENMT:Nose and sinus- No sinus tenderness along frontal/maxillary region. External appearance normal and midline.Nares- bilateral quiet airflow, no discharge.Nasal mucosa- No bleeding noted and no ulcerations observed. Puryear, moist. Turbinates non boggy.Lips-normal color, moist without cracks/lesions Oral Cavity/Palate- hard/soft palate intact without lesions, oral mucosa pink and moist. Tongue normal midline.Oropharynx- no pharyngeal erythema, Uvula midline. No post nasal drip. No exudate.Salivary glands- Non tender to palpation CHEST/LUNG:Inspection- symmetric chest wall no pectus deformity. Normal effort, no distress, no use of accessory muscles.Palpation- nontender sternum, ribline. No abnormal pulsations.Auscultation- Breath sounds normal throughout all lung lara. Normal tracheal sounds, Normal bronchial sounds overlying sternum, Bronchovessicular sounds normal between scapulae posteriorly, Normal vessicular breath sounds heard throughout periphery. Lungs are clear today. Adventitious sounds- No wheezes, rales, rhonchi. CARDIOVASCULAR:Carotid artery-normal, no bruits or abnormal pulsations. Jugular vein- no pulsations.Palpation/Percussion- Normal PMI, no palpable thrill Auscultation- Regular rate and rhythm. No murmur noted in sitting, supine positions.Extremities- no digital clubbing, cyanosis, edema, increased warmth. ABDOMEN:Inspection- normal and no visible pulsations. Normal contour. Auscultation- Bowel sounds normal, no abdominal bruits.Palpation/Percussion- soft, non-tender, no rebound tenderness, no rigidity (guarding), no jar tenderness, no masses.Liver-no hepatomegaly,Spleen no splenomegaly,Hernias - none. Peripheral Vascular:Upper extremityLeft- Normal temperature with pink nailbeds and no ulcerations.Upper extremity Right-Normal temperature with pink nailbe ds and no ulcerations.Lower extremity- Normal temperature with pink nailbeds and no ulcerations. DP pulses 2+ bilaterally. Pedal hair intact. Normal capillary refill.Edema- No edema. Musculoskeletal:Generalized-No generalized swelling or edema of extremities, no digital clubbing or cyanosis, neurovascularly intact all four extremities. Claw toes. No changes in feet/legs. Neurological:General- Moves all 4 extremities symmetrically. Symmetrical face and body posture.Cranial nerves- individually evaluated II-XII and intact. PERRLA, Normal EOMI, visual/special senses appear intact, Face is symmetrical and normal sensation/movement, normal tongue, normal strength/posture of neck musculature.Finger to nose negative, romberg negative. Will get phys therapy involved. Neuropsych:Oriented- Person, place, time. (AAOx3),Mood/affect- normal and congruent. Able to articulate well.Speech-Normal speech, normal rate, normal tone, normal use of language, volume and coherence. Lymphatic: Head/Neck- normal size and non tender to palpation.Axillary- normal size and non tender to palpation.Femoral and Inguinal- normal size and non tender to palpation. CBC WBC 7.21 K/ul (4.6-10.2) 12/25/20 04:48 Hgb 10.7 g/dl (12.0-16.0) L 12/25/20 04:48 Hct 31.3 % (37.0-47.0) L 12/25/20 04:48 Plt Count 276 10^3/uL (140-440) 12/25/20 04:48 CMP 12/23/20 12/23/20 12/24/20 15:36 21:00 04:54 Sodium 118.2 L* 118.2 L* 118.1 L* Potassium 4.11 4.43 4.49 Chloride 84.2 L 85.5 L 84.8 L Carbon Dioxide 24.0 24.4 24.4 Anion Gap 14.11 12.73 13.39 BUN 12.9 15.2 19.2 H Creatinine 0.53 L 0.63 0.94 BUN/Creatinine Ratio 24.33 24.12 20.42 Glucose 187.0 H 180.1 H 160.6 H Calcium 9.13 8.58 8.57 Iron AST 36.6 H 29.6 ALT 28.1 23.6 Total Protein 7.38 6.51 Albumin 4.22 3.70 Globulin 3.16 2.81 12/24/20 12/24/2012/24/21 04:54 11:05 13:15 Sodium 120.1 L 122.8 L Potassium 4.17 4.26 Chloride 85.1 L 86.4 L Carbon Dioxide 25.7 25.2 Anion Gap 13.47 15.46 BUN 23.1 H 24.3 H Creatinine 0.98 1.02 BUN/Creatinine Ratio 23.57 23.82 Glucose 176.1 H 133.4 H Calcium 8.71 8.85 Iron 60.7 AST ALT Total Protein Albumin Globulin 12/25/20 04:48 Sodium 124.8 L Potassium 4.48 Chloride 93.6 L Carbon Dioxide 22.3 Anion Gap 13.38 BUN 24.1 H Creatinine 0.67 BUN/Creatinine Ratio 35.97 Glucose 126.4 H Calcium 8.91 Iron AST 30.7 ALT 25.0 Total Protein 6.79 Albumin 3.85 Globulin 2.94 Still pending as of 12/23/20 Serum Osmolality Urine Osmolality Urine sodium. (1) Chronic hyponatremia: Status: Acute Code(s): E87.1 - Hypo-osmolality and hyponatremia SNOMED Code(s): 66338021 (2) Essential hypertension: Status: Acute Code(s): I10 - Essential (primary) hypertension SNOMED Code(s): 93969447 (3) Diabetes: Status: Acute Code(s): E11.9 - Type 2 diabetes mellitus without complications SNOMED Code(s): 87947957 (4) Hyperlipidemia: Status: Acute Code(s): E78.5 - Hyperlipidemia, unspecified SNOMED Code(s): 41867176 (5) Osteoarthritis: Status: Acute Code(s): M19.90 - Unspecified osteoarthritis, unspecified site SNOMED Code(s): 402771551 (6) Personal history of noncompliance with medical treatment: Status: Acute Code(s): Z91.19 - Patient's noncompliance with other medical treatment and regimen SNOMED Code(s): 360590982 (7) Nausea: Status: Acute Code(s): R11.0 - Nausea SNOMED Code(s): 262288724 (8) BMI 31.0-31.9,adult: Status: Acute Code(s): Z68.31 - Body mass index [BMI] 31.0-31.9, adult SNOMED Code(s): 918014240 (9) Chest pain: Status: Acute Code(s): R07.9 - Chest pain, unspecified SNOMED Code(s): 14242503 Plan: Hyponatremia:70-year-old female hospital day 3 with severe hyponatremia of value less than 120 mEq/L. As of this am she has had 6mmol/L increase in 24 hours which is maximum recommended. Serum/urine osmolality are not available to me, they are send outs and not yet back. her sodium is 124.8 as of this am. No repeat 3% saline today. Will continue 1500ml fluid restriction, continue same medications. After call this am she has morphine as needed. I will order phys therapy for today. Continue to encourage fall precautions. She has been non compliant. I have reviewed last 24 hours vitals. I+O are not being maintained as strict. Continue admission until sodium >130. Once >130 patient can be treated as outpatient. Etiology uncertain, suspect renal losses/hypotonic hyponatremia due to thiazide. W/o the serum/urine osmolality, I cannot know for sure. Nausea/dizziness/CP reported this am. RODRIGUEZ reported again this am. Sugars are reasonable. A1C was >8% 10 units lantus daily started 12/24/20. Urine monitored as voids makes it difficult to calculate a ml/kg/hour rate. However renal function is stable at this time. No e/o hypothyroid. - Admit inpatient to continue - Continue Telemetry - Strict I+O encouraged - Weight patient today. - CBC/CMP q am - Urine/serum osmolality collect/send out remainPENDING as of 12/25 7:50 - urine sodium collect/send outPENDING as of 12/25 7:50 - Stop HCTZ - Goal rise in Sodium 4-8 meq/L q day. - Monitor for mental changes for risks of osmotic demyelination syndrome. - Fluid restrict 1500 ml per day - Phys therapy. Chest Pain: Troponin 1 negative. Await series. EKG ordered, not yet available to me. Awaiting cardiology read as per protocol. Monitor. - Morphine 2mg q 6 hours. Hypertension:Mild elevation in last 24 housr. Continue to d/c the thiazide diuretic. Continue the lisinopril 40 mg daily and the increase in amlodipine 10 mg. Clonidine 0.1 mg BID BP >180 systolic or >100 diastolic. Diabetes:Chronic Diabetes. A1C returned 8.26, up from 7.68. Lantus 10 units daily added yesterday. She is on DPPIV. Consider change to GLP1 as outpatient. I will continue metformin, I will continue the januvia. I also will continue with the increased strength of statin, with lipitor 40mg nightly. Estimated ascvd risk of 37.2%. Baby ASA may be of benefit as well (d/w patient as an outpatient). BP goal <140/90. She is on Haroon-I. - Continue High potency statin. R/B/A d/w patient based on ACC/AHA - Continue metformin and Januvia. - lantus 10 units daily in am. - Eye doctor as outpatient - Foot eval as outpatient. Hyperlipidemia: Based on current guidelines the patient has a [37.2]% risk of heart attack/cardiac event over the next 10 years. Statin dose increased from 10mg to 40mg, this will continue at d/c. R/B/A to meds d/w patient, SE reviewed. - Lipitor to remain at 40mg. Anemia:Mild, monitor with daily CBC as we will be treating with lovenox. Stable to slightly improved. Continue to Monitor. Iron stopped as not iron deficient. - Cscope as outpatient based on recommendations by GI. - Fecal occult blood ordered pending. Obesity: Discussed the federal guidelines suggest a healthy goal BMI of 18.5- 24.9 for people 18 65 and 23-30 for people age 65 and older. Overweight is considered BMI 25-30, Obesity 30-40 and Morbid obesity is defined as >100 lb overweight or BMI >40. With a BMI above goal, it is recommended to utilize a diet/exercise program to get back into the appropriate range. Consider referral to spindle tester. For BMI >40 consider referral to bariatrics. If not already monitoring intake. I would recommend at least to keep a food diary. Document everything that is consumed into a food diary. Studies have shown that patients can lose up to 2x the weight by keeping track of foods. Offered handout on weight loss techniques. Apps that may be of benefit include [employer] Pal, Lose it. Regular exercise encouraged. Start with walking 5-10 minutes at a pace that is difficult to carry a conversation. If chest pain/SOA stop and f/u in office, - Will address as outpatient. DVT Prophy:Lovenox 40mg subcut. - Lovenox 40mg subcut. Diet:Diabetic Diet - 1500ml fluid restriction. Activity:Up with assist. Fall precaution. Bed alarm for patient safety. Disposition:The patient has continued to meet criteria for severe hyponatremia with mild headache suggesting neurological sequela. She improved to moderate yesterday/this am. Risks for osmotic demyelination syndrome remain. She received 200cc of 3% saline 12/23, again 12/24 and this am up ~124mmol/L. When she reaches >130 we can prepare for d/c. She has been non compliant. D/C planning on going. Fluid restriction to continue, HCTZ stopped, I will continue lantus 10units daily. Continue ac/hs accuchecks. I suspect 2-3 more days for this hospital admission. Duration of rounding this am, discussion with floor nursing, review of telemetry, review of labs, discussion with patient, 37 minutes. Time not including 7 minute phone conversation 0500 this am and documentation.
[2020-12-25] MEDS ORDERED: TORADOL IVP STA (08:10)
[2020-12-25] MEDS: SINGULAIR PO SCH (09:35)
[2020-12-25] MEDS: GLUCOPHAGE PO SCH ×2 (09:35→17:36)
[2020-12-25] MEDS: ZESTRIL PO SCH (09:35)
[2020-12-25] MEDS: TYLENOL PO PRN ×2 (09:35→17:46)
[2020-12-25] MEDS: FERROUS SULFATE PO SCH (09:35)
[2020-12-25] MEDS: LOVENOX SUBCUT SCH (09:35)
[2020-12-25] MEDS: LANTUS SUBCUT SCH (09:42)
[2020-12-25] MEDS: JANUVIA PO SCH (14:19)
--- NOTE | 2020-12-25 16:22 | RS.PTINEVL ---
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 pt states she needs a walker. However she also states she did not use a walker at home but someone told her she needed to use a walker. When asked who, she states "I don't know, someone." - Level of function Abilities prior to this admission: pt states she ambulated independently at home. Current Level of Function: Partially Dependent Pain Assessement - Location headache Intensity: 8 (initially states a little pain, then rated 8/10) Pain Alleviating Factors: Position Change Interventions - Objective Patient Orientation: Person, Place Current Interventions: IV's, Telemetry Observation: pt seen sitting up in bedside chair. Range of Motion - ROM Right Upper Extremity AROM: WFL's Left Upper Extremity AROM: WFL's Right Lower Extremity AROM: WFL's Left Lower Extremity AROM: WFL's Muscle Strength - Muscle Strength Right Upper Extremity Strength: Mild Weakness (grossly 4/5) Left Upper Extremity Strength: Mild Weakness (grossly 4/5) Right Lower Extremity Strength: Mild Weakness (hip flex 4-/5, knee flex/ext 4/5, ankle DF/PF 4/5) Left Lower Extremity Strength: Mild Weakness (hip flex 4-/5, knee flex/ext 4/5, ankle DF/PF 4/5) Sensation - Sensation Right Upper Extremity Sensation: Intact/Normal Left Upper Extremity Sensation: Intact/Normal Right Lower Extremity Sensation: Intact/Normal Left Lower Extremity Sensation: Intact/Normal Palpation Palpation Findings: None/Normal Balance - Sitting Balance and Reactions Static Sitting Balance: Good Dynamic Sitting Balance: Good - Standing Balance and Reactions Static Standing Balance: Fair Dynamic Standing Balance: Poor Functional Mobility - Bed Mobility Sit to Supine: CGA - Transfers Sit to Stand: CGA Stand to Sit: CGA - Safety Awareness Safety Awareness: Poor ZACH INDEX SCORE: n/a Ambulation - Ambulation Assistive Device Used: Rolling Walker Orthotic/Prosthetic Device: No Distance: 100ft Assistance needed with Ambulation: CGA Gait Deviations: Forward posture, Short stride Ambulation Comments: pt is impulsive and is not responsive to therapist cues for safety. pt would not wait to put mask on or gait belt. Requires repeated cues to stop or turn etc. Factors Affecting Ambulation: Decreased Balance, Weakness, Decreased Safety, Cognitive Status, Limited Endurance Treatment time - Time with patient Length of Evaluation: 21 Total treatment time: 28 Patient Education - Education Patient Education: Activity Modification, Education of Plan of Care Teaching Recipient: Patient Teaching Methods: Discussion Assessment - Assessment Problem List:: Decreased level of function, Requires training/education, Decreased safety/Risk of falls, Weakness, Pain limits previous level of function, Cognitive status limits abilities Rehab Potential: Fair Further Therapy Indicated?: No Candidate for Swing Bed for Therapy Services?: Feel pt would not be a candidate for swing bed due to high functional level. Evaluation Complexity: HISTORY: Medium, EXAM OF BODY SYSTEMS: Medium, CLINICAL PRESENTATION: Medium, CLINICAL DECISION MAKING: Medium Patient's Goal(s): pt unable to verbalize goals. Short Term Goals GOAL #1: pt independent with rolling and scooting in bed. Goal to be met by: 12/26/20 GOAL #2: Transfer sup to/from sit SBA Goal to be met by: 12/26/20 GOAL #3: Sit to/from stand SBA Goal to be met by: 12/26/20 GOAL #4: Improve BLE strength 4+/5 Goal to be met by: 12/26/20 GOAL #5: pt amb 100ft with rwx SBA to CGA Goal to be met by: 12/26/20 Correction Goals GOAL #1: Transfer sup to/from sit to/from stand independently Goal to be met by: 12/28/20 GOAL #2: pt amb functional distances w/w/o AD independently Goal to be met by: 12/28/20 GOAL #3: Improve dyn stand balance fair + Goal to be met by: 12/28/20 Plan Plan of Care: Therapeutic EX, Therapeutic Activity Other:: gait training Frequency of Treatment: 1-2 X day, as tolerated Duration of Treatment: 3 days Anticipated Discharge Destination: Home Treatment Diagnosis (ICD 10 Codes): difficulty walking R 26.2. impaired balance R 26.81 Has the Physician been added for Co-signature?: Yes
[2020-12-25] MEDS: NORVASC PO SCH (17:36)
[2020-12-25] MEDS: VISTARIL PO PRN (20:50)
[2020-12-25] MEDS: LIPITOR PO SCH (20:51)
[2020-12-25 21:06] LABS: OCCULT BLOOD SAMPLE 1 POSITIVE (NEGATIVE)
[2020-12-26 05:18] LABS: BASOPHILS % (AUTO) 0.4 % (0.0-3.0); EOSINOPHILS # (AUTO) 0.2 K/ul (0.0-0.7); EOSINOPHILS % (AUTO) 1.9 % (0.0-7.0); HEMATOCRIT 31.2 % (37.0-47.0); HEMOGLOBIN 10.3 g/dl (12.0-16.0); IMMATURE GRANULOCYTE # (AUTO) 0.1 (0.0-1.0); IMMATURE GRANULOCYTE % (AUTO) 0.7 % (0.0-5.0); LYMPHOCYTES % (AUTO) 24.3 (10.0-50.0); MEAN CORPUSCULAR HEMOGLOBIN 27.4 pg (27.0-31.0); MONOCYTES # (AUTO) 0.8 K/uL (0.4-2.0); MONOCYTES % (AUTO) 9.5 (0-10); NEUTROPHILS # (AUTO) 5.1 K/ul (2.0-6.9); NEUTROPHILS % (AUTO) 63.2 % (42.2-75.2); PLATELET COUNT 272 10^3/uL (140-440); RDW COEFFICIENT OF VARIATION 14.5 % (11.6-14.8); RED BLOOD COUNT 3.76 10^6/ul (4.20-5.40); WHITE BLOOD COUNT 8.01 K/ul (4.6-10.2)
[2020-12-26 05:32] LABS: ALANINE AMINOTRANSFERASE 26.7 U/L (0-35); ALBUMIN 3.85 g/dL (3.5-5.0); ALKALINE PHOSPHATASE 73.2 U/L (53-141); ASPARTATE AMINO TRANSFERASE 35.3 U/L (14-36); BILIRUBIN,TOTAL 0.18 mg/dL (0.2-1.3); BLOOD UREA NITROGEN 21.8 mg/dL (7-17); CALCIUM 9.24 mg/dL (8.4-10.2); CHLORIDE 94.6 mmol/L (98-107); CREATININE 0.67 mg/dL (0.60-1.30); GLUCOSE 145.1 mg/dL (74-106); POTASSIUM 4.74 mmol/L (3.5-5.1); SODIUM 128.7 mmol/L (134.5-145); TOTAL PROTEIN 6.77 g/dL (6.3-8.2)
--- NOTE | 2020-12-26 07:16 | PCM.PROG ---
Date Seen by Provider: 12/26/20 Time Seen by Provider: 07:11 Subjective: 70 yo CF HD #4 admitted on 12/23/20 with severe hyponatremia and headache. She has long standing history of NIDDM, HTN, seasonal allergies, obesity w/ BMI 31.2. Presented to ED on 12/22 and 12/23 with RODRIGUEZ and on admit had sodium 118.2 corrected to 119-120 based on mild hyperglycemia. She received ~200cc of 3% saline on day 1 with minimal change. 100 cc HD 2 x2 of 3% saline with repeat BMP sodium up to 122.8 mmol/L. Yesterday no additional 3% sodium given. Her CMP incresaed to sodium 124.8 mmol/L, TSH was normal. Fluid restricted to 1500ml, statin increased to 40mg (high potency), thiazide stopped, osmolality for serum/urine and urine sodium pending as send outs as of yesterday (from 12/23/20). Labs this morning showed a white blood cell count 8.01, hemoglobin chronically low 10.3 with a MCV of 83 and normal. Platelets were normal at 272. Chemistry today shows an increase in sodium from 124.8 yesterday to 128.7 today. Potassium stable 4.74, chloride 94.6 continues to increase. Creatinine 0.67 with a GFR of 87 and stable. Glucose 145.1 and stable. Calcium 9.24. Remainder of metabolic panel within acceptable limits. She did have some chest pain yesterday and had 2 troponins negative. EKG was negative, telemetry had no changes. Serum osmolality has finally returned at 248, urine osmolality 443 and urine sodium 128. The patient serum sodium was less than 135, hyperglycemia was present but did not correct above 120. The serum was not light hemic the patient was not jaundiced and there was no evidence of history of plasma cell dyscrasia. Suspected hypotonic hyponatremia, GFR was not substantially impaired and the patient was on thiazide diuretic. The hyponatremia is resolving suggesting thiazide induced hyponatremia. However to continue the algorithm, she did not have signs of hypovolemia her urine osmolality was not less than 100 as it was 443. I would like to remeasure urine osmolality, serum osmolality and urine sodium today. If the sodium is less than 40 or the osmolality is less than 100 she has hypovolemic hyponatremia. If the sodium remains greater than 40 and the urine osmolality greater than 100 we may consider evaluation with a morning cortisol. Based on this parameter we may have SIADH, nephrogenic SIADH, reset Osmo stat. However she is improving at this time and I still suspect thiazide induced problems. Physical therapy met with the patient yesterday. She originally asked for them to come back later but then eventually agreed to participate. Per therapy she has a decreased level of function, requires training education, decreased safety and risk of falls, weakness, pain limits previous level of function and cognitive status limits abilities. Rehab potential for the patient is fair. She is not a candidate for swing bed due to high functional level, patient unable to verbalize goals. Vitals over the last 24 hours were reviewed. Patient has remained afebrile. Her blood pressure has been on the higher side but is normal this morning. She has had readings of 136/71, 151/70, 143/66, 135/56, 143/70, 156/71, 141/72, and 124/67. Respiratory rate 16-18 over the last 24 hours O2 saturation 95 to 100% on room air. Telemetry continues to show sinus rhythm with first-degree AV block with a SD interval of 0.22-0.24. Despite my request for strict I's and O's there have been minimal documented urine output of volume. She had 1 bowel movement yesterday and 3 were documented for today. Toradol injection provided yesterday. Pain resolved no further pain in chest, nausea vomiting diarrhea or headache. Nursing note from 5:00 this morning showed patient rested and had no complaints this morning. I discussed plan for d/c home when levels of sodium >130. Occult blood was positive. Hgb is stable. Will continue lovenox. Would like Cscope as outpatient. Normocytic anemia supports loss. REVIEW OF SYMPTOMS: (Positives bolded) General: weight loss, fever, chills, night sweats,fatigue,appetite loss HEENT: blurry vision, eye pain, eye discharge, dry eyes, decreased vision, sore throat tinnitus, bloody nose, hearin gloss, sinus pain/pressure, ear pain/pressure. Respiratory:shortness of breath,cough, hemoptysis, wheezing, pleurisy, Cardiovascular:chest pain, PND, palpitation, edema, orthopnea, syncope, swelling of extremities Gastro: Nausea,vomiting,diarrhea, hematemesis, abdominal pain, constipation Genito:hematuria, dysuria, glycosuria, hesitancy, frequency, incontinence Musckelo: Arthralgia,myalgia, muscle weakness,joint swelling, NSAID use Skin:rash, pruritis, sores, nail changes, skin thickening, change in wart/mole, itching, rash, new lesions,pruritus, nail changes Neuro: Headache,numbness, ataxia, tremor, vertigo,weakness, memory loss, Irritability, dizziness Endocrine:excessive thirst, polyuria, cold intolerance, heat intolerance, goiter Psychiatric:depression, anxiety, anti-depressants, alcohol abuse, drug abuse, insomnia, change in sleep pattern and mood changes Heme/lymph:easy bruising, bleeding gums, blood clots, swollen glands, lymphedema, Allergic/immune:allergic rhinitis, hay fever, asthma, hives Objective: Vital Signs - 24 hr 12/25/20 08:00 12/25/20 10:00 12/25/20 13:50 Temperature 97.0 F L 97.4 F L Pulse Rate 70 70 Pulse Rate [Left Dorsalis Pedis] 66 Respiratory Rate 16 16 Blood Pressure 143/66 H 135/66 O2 Sat by Pulse Oximetry 95 98 12/25/20 18:00 12/25/20 21:19 12/26/20 02:00 Temperature 98.5 F 98.2 F 97.0 F L Pulse Rate 81 72 75 Pulse Rate [Left Dorsalis Pedis] Respiratory Rate 18 18 18 Blood Pressure 143/70 H 156/71 H 141/72 H O2 Sat by Pulse Oximetry 98 98 100 12/26/20 05:03 Temperature 98.3 F Pulse Rate 65 Pulse Rate [Left Dorsalis Pedis] Respiratory Rate 16 Blood Pressure 124/67 O2 Sat by Pulse Oximetry 98 Constitutional:Appearance-No acute distress, Consistent with stated age. GCS 15Orientation- Oriented x 3, alert General- Patient is pleasant and cooperative with the interview and exam today. Integumentary: General-No rashes, ulcers or lesions.Palpation- Normal skin moisture/turgor. Skin is warm to touch, appropriate. Capillary refill is normal bilateral Upper and lower extremity. Small abrasion left PSIS padded, C/D/I. Continue to monitor. Head/Neck:Head- normocephalic and atraumatic.Neck- without visible/palpable lumps or pulsations.Palpation- No bony tenderness about head/neck along frontal, occipital, temporal, parietal, mastoid, jawline, zygoma, orbit or any other location. NO temporal artery tenderness. No TMJ tenderness. Neck Supple.Thyroid-No thyromegaly, no nodules Eye:Bilaterally PERRLA, EOMI. No discharge. ENMT:Nose and sinus- No sinus tenderness along frontal/maxillary region. External appearance normal and midline.Nares- bilateral quiet airflow, no discharge.Nasal mucosa- No bleeding noted and no ulcerations observed. [place], moist. Turbinates non boggy.Lips-normal color, moist without cracks/lesions Oral Cavity/Palate- hard/soft palate intact without lesions, oral mucosa pink and moist. Tongue normal midline.Oropharynx- no pharyngeal erythema, Uvula midline. No post nasal drip. No exudate.Salivary glands- Non tender to palpation CHEST/LUNG:Inspection- symmetric chest wall no pectus deformity. Normal effort, no distress, no use of accessory muscles.Palpation- nontender sternum, ribline. No abnormal pulsations.Auscultation- Breath sounds normal throughout all lung lara. Normal tracheal sounds, Normal bronchial sounds overlying sternum, Bronchovessicular sounds normal between scapulae posteriorly, Normal vessicular breath sounds heard throughout periphery. Lungs are clear today. Adventitious sounds- No wheezes, rales, rhonchi. CARDIOVASCULAR:Carotid artery-normal, no bruits or abnormal pulsations. Jugular vein- no pulsations.Palpation/Percussion- Normal PMI, no palpable thrill Auscultation- Regular rate and rhythm. No murmur noted in sitting, supine positions.Extremities- no digital clubbing, cyanosis, edema, increased warmth. ABDOMEN:Inspection- normal and no visible pulsations. Normal contour. Auscultation- Bowel sounds normal, no abdominal bruits.Palpation/Percussion- soft, non-tender, no rebound tenderness, no rigidity (guarding), no jar tenderness, no masses.Liver-no hepatomegaly,Spleen no splenomegaly, Peripheral Vascular:Upper extremityLeft- Normal temperature with pink nailbeds and no ulcerations.Upper extremity Right-Normal temperature with pink nailbeds and no ulcerations.Lower extremity- Normal temperature with pink nailbeds and no ulcerations. DP pulses 2+ bilaterally. Pedal hair intact. Normal capillary refill.Edema- No edema. No changes from previous day. Musculoskeletal:Generalized-No generalized swelling or edema of extremities, no digital clubbing or cyanosis, neurovascularly intact all four extremities. Claw toes. No changes in feet/legs. Neurological:General- Moves all 4 extremities symmetrically. Symmetrical face and body posture.Cranial nerves- individually evaluated II-XII and intact. PERRLA, Normal EOMI, visual/special senses appear intact, Face is symmetrical and normal sensation/movement, normal tongue, normal strength/posture of neck musculature.Finger to nose negative, romberg negative. Will get phys therapy involved. Neuropsych:Oriented- Person, place, time. (AAOx3),Mood/affect- normal and congruent. Able to articulate well.Speech-Normal speech, normal rate, normal tone, normal use of language, volume and coherence.Limited understanding. Lymphatic: Head/Neck- normal size and non tender to palpation.Axillary- normal size and non tender to palpation.Femoral and Inguinal- normal size and non tender to palpation. Laboratory Results - last 24 hr 12/23/20 12/23/20 12/24/20 16:30 16:30 04:54 WBC RBC Hgb Hct MCV MCH MCHC RDW Coeff of Chary Plt Count Immature Gran % (Auto) Neut % (Auto) Lymph % (Auto) Bradford % (Auto) Eos % (Auto) Baso % (Auto) Neut # (Auto) Lymph # (Auto) Bradford # (Auto) Eos # (Auto) Baso # (Auto) Immature Gran # (Auto) Sodium Potassium Chloride Carbon Dioxide Anion Gap BUN Creatinine Estimated GFR (MDRD) BUN/Creatinine Ratio Glucose Serum Osmolality 248 L Calcium Total Bilirubin AST ALT Alkaline Phosphatase Troponin I Total Protein Albumin Globulin Albumin/Globulin Ratio Urine Osmolality 443 Ur Random Sodium 128 Stl Occult Blood (IFOB) 12/25/20 12/25/20 12/26/20 13:50 20:56 04:45 WBC 8.01 RBC 3.76 L Hgb 10.3 L Hct 31.2 L MCV 83.0 MCH 27.4 MCHC 33.0 RDW Coeff of Chary 14.5 Plt Count 272 Immature Gran % (Auto) 0.7 Neut % (Auto) 63.2 Lymph % (Auto) 24.3 Bradford % (Auto) 9.5 Eos % (Auto) 1.9 Baso % (Auto) 0.4 Neut # (Auto) 5.1 Lymph # (Auto) 2.0 Bradford # (Auto) 0.8 Eos # (Auto) 0.2 Baso # (Auto) 0.0 Immature Gran # (Auto) 0.1 Sodium Potassium Chloride Carbon Dioxide Anion Gap BUN Creatinine Estimated GFR (MDRD) BUN/Creatinine Ratio Glucose Serum Osmolality Calcium Total Bilirubin AST ALT Alkaline Phosphatase Troponin I < 0.012 Total Protein Albumin Globulin Albumin/Globulin Ratio Urine Osmolality Ur Random Sodium Stl Occult Blood (IFOB) Positive 12/26/20 04:45 WBC RBC Hgb Hct MCV MCH MCHC RDW Coeff of Chary Plt Count Immature Gran % (Auto) Neut % (Auto) Lymph % (Auto) Bradford % (Auto) Eos % (Auto) Baso % (Auto) Neut # (Auto) Lymph # (Auto) Bradford # (Auto) Eos # (Auto) Baso # (Auto) Immature Gran # (Auto) Sodium 128.7 L Potassium 4.74 Chloride 94.6 L Carbon Dioxide 24.0 Anion Gap 14.84 BUN 21.8 H Creatinine 0.67 Estimated GFR (MDRD) 87.00 BUN/Creatinine Ratio 32.53 Glucose 145.1 H Serum Osmolality Calcium 9.24 Total Bilirubin 0.18 L AST 35.3 ALT 26.7 Alkaline Phosphatase 73.2 Troponin I Total Protein 6.77 Albumin 3.85 Globulin 2.92 Albumin/Globulin Ratio 1.31 Urine Osmolality 443(12/23) Ur Random Sodium 128 (12/23) Stl Occult Blood (IFOB) + (1) Chronic hyponatremia: Status: Acute Code(s): E87.1 - Hypo-osmolality and hyponatremia SNOMED Code(s): 10636545 (2) Essential hypertension: Status: Acute Code(s): I10 - Essential (primary) hypertension SNOMED Code(s): 51134488 (3) Diabetes: Status: Acute Code(s): E11.9 - Type 2 diabetes mellitus without complications SNOMED Code(s): 16176534 (4) Hyperlipidemia: Status: Acute Code(s): E78.5 - Hyperlipidemia, unspecified SNOMED Code(s): 29401535 (5) Osteoarthritis: Status: Acute Code(s): M19.90 - Unspecified osteoarthritis, unspecified site SNOMED Code(s): 128471199 (6) Personal history of noncompliance with medical treatment: Status: Acute Code(s): Z91.19 - Patient's noncompliance with other medical treatment and regimen SNOMED Code(s): 114393718 (7) Nausea: Status: Acute Code(s): R11.0 - Nausea SNOMED Code(s): 035050364 (8) BMI 31.0-31.9,adult: Status: Acute Code(s): Z68.31 - Body mass index [BMI] 31.0-31.9, adult SNOMED Code(s): 614935004 (9) Chest pain: Status: Acute Code(s): R07.9 - Chest pain, unspecified SNOMED Code(s): 88451446 (10) Heme positive stool: Status: Acute Code(s): R19.5 - Other fecal abnormalities SNOMED Code(s): 44735723 Plan: Hyponatremia:70-year-old female hospital day 4 admitted with severe hyponatremia of value less than 120 mEq/L. As of this am she has had another~4 mmol/L increase in 24 hours which is reasonable. I still suspect hypotonic hyponatremia wwith thiazide diuretic the likely suspecting agent on top of some polydipsia. Serum/urine osmolality reviewed this am. Hemoccult was + (still on lovenox, hgb stable). Her sodium is 128.7 and actually corrects to 129 mmol/L Maria equationn, and 130 with the chinmay equation. I will provide 24 more hours of care and likely plan d/c tomorrow if sodium is the same or better. No repeat 3% saline today. Will continue 1500ml fluid restriction, continue same medications. Toradol x1 yesterday eliminated pain. ?Migraine RODRIGUEZ. Phys therapy eval showed relative high function, patient unable to verbalize goals. Continue to encourage fall precautions. She has been non compliant yesterday, nursing noted improvement. I have reviewed last 24 hours vitals. I+O are not being maintained as strict. Continue admission until sodium >130. Once >130 patient can be treated as outpatient. Repeat osmolality for urine/serum and urine sodium today. Nausea/dizziness/CP better. RODRIGUEZ better. Trop negativve x 2 yesterday, Tele unchanged. Sugars are reasonable. A1C was >8% 10 units lantus daily started 12/24/20. Urine monitored as voids makes it difficult to calculate a ml /kg/hour rate. However renal function is stable at this time. No e/o hypothyroid. - Admit inpatient to continue - Continue Telemetry - Strict I+O encouraged - Weight patient today. - CBC/CMP q am - Urine/serum osmolality collect/send out repeat today - urine sodium collect/send out repeat today - Stop HCTZ - Goal rise in Sodium 4-8 meq/L q day. - Monitor for mental changes for risks of osmotic demyelination syndrome. - Fluid restrict 1500 ml per day Chest Pain:Resolved. Troponin x 2 negative. EKG ordered reported negative, tele unchanged. Monitor. NO e/o PE based on modified wells criteria. Hypertension:Mild elevation in last 24 housr. Continue to d/c the thiazide diuretic. Continue the lisinopril 40 mg daily and continue the increase in amlodipine at 10 mg. Clonidine 0.1 mg BID BP >180 systolic or >100 diastolic. Diabetes:Chronic Diabetes. A1C returned 8.26, up from 7.68 previously. Lantus 10 units daily added 12/24. She is on DPPIV. Consider change to GLP1 as outpatient. I will continue metformin, I will continue the januvia. I also will continue with the increased strength of statin, with lipitor 40mg nightly. Estimated ascvd risk of 37.2%. Baby ASA may be of benefit as well (d/w patient as an outpatient). BP goal <140/90. She is on Haroon-I. - Continue High potency statin. R/B/A d/w patient based on ACC/AHA - Continue metformin and Januvia. - lantus 10 units daily in am. - Eye doctor as outpatient - Foot eval as outpatient. Hyperlipidemia: Based on current guidelines the patient has a [37.2]% risk of heart attack/cardiac event over the next 10 years. Statin dose increased from 10mg to 40mg, this will continue at d/c. R/B/A to meds d/w patient, SE reviewed. - Lipitor to remain at 40mg. Anemia/Heme + Stools:Anemia is stable, monitor with QOD CBC as we will be treating with lovenox. Stable to slightly improved. Continue to Monitor. Iron stopped as not iron deficient. - Cscope as outpatient based on recommendations by GI. Obesity:Goal BMI #1 <30. Will f/u with patient as outpatient. DVT Prophy:Lovenox 40mg subcut. Aware of Heme + stool. - Lovenox 40mg subcut. Diet:Diabetic Diet - 1500ml fluid restriction. Activity:Up with assist. Fall precaution. Bed alarm for patient safety. Disposition:The patient has improved and now sodium at 128.7 mmol/L actually corrects to 129-130mmol/L based on mild hyperglycemia. Plan to d/c patient tomorrow if sodium >130. D/C planning on going. Patient continues to improve. She received 200cc of 3% saline 12/23, again 12/24, no further since that time. When she reaches >130 we can prepare for d/c. She has been non compliant but better yesterday after disccussion. Fluid restriction to continue, HCTZ stopped, I will continue lantus 10units daily. Continue ac/hs accuchecks. I suspect 1-2 more days for this hospital admission. Duration of rounding this am, discussion with floor nursing, review of telemetry, review of labs, review of therapy, review of case management, discussion with patient, 36 minutes. Time not including documentation.
[2020-12-26] MEDS: LANTUS SUBCUT SCH (08:36)
[2020-12-26] MEDS: LOVENOX SUBCUT SCH (08:36)
[2020-12-26] MEDS: FERROUS SULFATE PO SCH (08:37)
[2020-12-26] MEDS: GLUCOPHAGE PO SCH ×2 (08:37→17:48)
[2020-12-26] MEDS: SINGULAIR PO SCH (08:37)
[2020-12-26] MEDS: ZESTRIL PO SCH (08:37)
[2020-12-26] MEDS: JANUVIA PO SCH (12:49)
[2020-12-26 13:36] LABS: OCCULT BLOOD SAMPLE 2 NO SPECIMEN RECEIVED (NEGATIVE); OCCULT BLOOD SAMPLE 3 NO SPECIMEN RECEIVED (NEGATIVE)
[2020-12-26] MEDS: NORVASC PO SCH (17:48)
[2020-12-26] MEDS: LIPITOR PO SCH (20:13)
[2020-12-26] MEDS: TYLENOL PO PRN (20:13)
[2020-12-26] MEDS: VISTARIL PO PRN (20:13)
[2020-12-27 05:06] LABS: BASOPHILS # (AUTO) 0.1 K/uL (0-0.2); BASOPHILS % (AUTO) 0.6 % (0.0-3.0); EOSINOPHILS # (AUTO) 0.2 K/ul (0.0-0.7); EOSINOPHILS % (AUTO) 2.5 % (0.0-7.0); HEMATOCRIT 32.7 % (37.0-47.0); HEMOGLOBIN 10.7 g/dl (12.0-16.0); IMMATURE GRANULOCYTE # (AUTO) 0.1 (0.0-1.0); LYMPHOCYTES # (AUTO) 2.2 K/uL (0.60-3.4); LYMPHOCYTES % (AUTO) 26.7 (10.0-50.0); MEAN CORPUSCULAR HEMOGLOBIN 27.5 pg (27.0-31.0); MEAN CORPUSCULAR HGB CONC 32.7 (31.8-35.4); MEAN CORPUSCULAR VOLUME 84.1 fl (81.0-99.0); MONOCYTES # (AUTO) 0.7 K/uL (0.4-2.0); MONOCYTES % (AUTO) 8.6 (0-10); NEUTROPHILS # (AUTO) 4.9 K/ul (2.0-6.9); NEUTROPHILS % (AUTO) 60.6 % (42.2-75.2); PLATELET COUNT 294 10^3/uL (140-440); RDW COEFFICIENT OF VARIATION 14.7 % (11.6-14.8); RED BLOOD COUNT 3.89 10^6/ul (4.20-5.40); WHITE BLOOD COUNT 8.12 K/ul (4.6-10.2)
[2020-12-27 05:18] LABS: ALANINE AMINOTRANSFERASE 30.7 U/L (0-35); ALBUMIN 3.94 g/dL (3.5-5.0); ASPARTATE AMINO TRANSFERASE 35.7 U/L (14-36); BILIRUBIN,TOTAL 0.17 mg/dL (0.2-1.3); BLOOD UREA NITROGEN 23.9 mg/dL (7-17); CALCIUM 9.31 mg/dL (8.4-10.2); CARBON DIOXIDE 22.2 mmol/L (22-30.0); CHLORIDE 98.9 mmol/L (98-107); CREATININE 0.75 mg/dL (0.60-1.30); GLUCOSE 120.5 mg/dL (74-106); POTASSIUM 5.32 mmol/L (3.5-5.1); SODIUM 130.4 mmol/L (134.5-145); TOTAL PROTEIN 6.84 g/dL (6.3-8.2)
[2020-12-27 05:51] VITALS: BP 145/80; TEMP 97.5
--- NOTE | 2020-12-27 07:37 | PCM.DC ---
Final Diagnosis: 1. Hyponatremia 2. Essential HTN 3. DM 2: Insulin started A1C 8.26 4. Hyperkalemia 5. BMI 31.2. 6. Chest Pain 7. Hyperlipidemia 8. Anemia 9. Heme + Stool 10. Gallbladder disease. (1) Chronic hyponatremia: Status: Acute Code(s): E87.1 - Hypo-osmolality and hyponatremia SNOMED Code(s): 68936684 (2) Essential hypertension: Status: Acute Code(s): I10 - Essential (primary) hypertension SNOMED Code(s): 46131327 Reason for Hospitalization: 1. Severe Hyponatremia Prognosis at Discharge: Medically optimized and ready for discharge. Mild hyperkalemia noted on labs this am. Repeat CMP in 48 hours to assess status of Sodium and Potassium. Condition at Discharge: Stable/Baseline. Medically optimized for discharge home. Medications at Discharge: Ambulatory Orders Medication Instructions Recorded blood sugar diagnostic (Blood #100 each 09/19/19 Glucose Test) blood-glucose meter #1 each 09/19/19 lancets 33 gauge ([email or web address] Delica #50 each 09/19/19 Lancets) metformin 1,000 mg tablet 1,000 mg PO BID #180 tab 10/10/20 montelukast 10 mg tablet See Rx Instructions .ROUTE 10/10/20 .COMPLEX #90 tab sitagliptin 100 mg tablet (Januvia) See Rx Instructions .ROUTE 10/10/20 .COMPLEX #90 tab amlodipine 10 mg tablet 10 mg PO DAILY #90 tab 12/27/20 atorvastatin 40 mg tablet (Lipitor) 40 mg PO BEDTIME #90 tab 12/27/20 insulin glargine 100 unit/mL (3 10 unit SUBCUT QPM #15 ml 12/27/20 mL) subcutaneous pen (Lantus Solostar U-100 Insulin) lisinopril 40 mg tablet 40 mg PO .every morning 90 Days 12/27/20 #90 tab ondansetron 4 mg disintegrating 8 mg PO ONCE 14 Days #28 tab 12/27/20 tablet pen needle, diabetic 32 gauge x #100 ea 12/27/20" (BD Ultra-Fine Bita Pen Needle) Lab/Diagnostics: Laboratory Last Values WBC 8.12 K/ul (4.6-10.2) 12/27/20 04:31 RBC 3.89 10^6/ul (4.20-5.40) L 09/23/21 04:31 Hgb 10.7 g/dl (12.0-16.0) L 12/27/20 04:31 Hct 32.7 % (37.0-47.0) L 12/27/20 04:31 MCV 84.1 fl (81.0-99.0) 12/27/20 04:31 MCH 27.5 pg (27.0-31.0) 12/27/20 04:31 MCHC 32.7 (31.8-35.4) 12/27/20 04:31 RDW Coeff of Chary 14.7 % (11.6-14.8) 12/27/20 04:31 Plt Count 294 10^3/uL (140-440) 12/27/20 04:31 Immature Gran % (Auto) 1.0 % (0.0-5.0) 12/27/20 04:31 Neut % (Auto) 60.6 % (42.2-75.2) 12/27/20 04:31 Lymph % (Auto) 26.7 (10.0-50.0) 12/27/20 04:31 Haines % (Auto) 8.6 (0-10) 12/27/20 04:31 Eos % (Auto) 2.5 % (0.0-7.0) 12/27/20 04:31 Baso % (Auto) 0.6 % (0.0-3.0) 12/27/20 04:31 Neut # (Auto) 4.9 K/ul (2.0-6.9) 12/27/20 04:31 Lymph # (Auto) 2.2 K/uL (0.60-3.4) 12/27/20 04:31 Haines # (Auto) 0.7 K/uL (0.4-2.0) 12/27/20 04:31 Eos # (Auto) 0.2 K/ul (0.0-0.7) 12/27/20 04:31 Baso # (Auto) 0.1 K/uL (0-0.2) 12/27/20 04:31 Immature Gran # (Auto) 0.1 (0.0-1.0) 12/27/20 04:31 Sodium 130.4 mmol/L (134.5-145) L 12/27/20 04:31 Potassium 5.32 mmol/L (3.5-5.1) H 12/27/20 04:31 Chloride 98.9 mmol/L (98-107) 12/27/20 04:31 Carbon Dioxide 22.2 mmol/L (22-30.0) 12/27/20 04:31 Anion Gap 14.62 12/27/20 04:31 BUN 23.9 mg/dL (7-17) H 12/27/20 04:31 Creatinine 0.75 mg/dL (0.60-1.30) 12/27/20 04:31 Estimated GFR (MDRD) 76.00 mL/min 12/27/20 04:31 BUN/Creatinine Ratio 31.86 12/27/20 04:31 Glucose 120.5 mg/dL (74-106) H 12/27/20 04:31 Hemoglobin A1c 8.26 (4.0-6.0) H 12/23/20 15:39 Serum Osmolality 248 mOsmol/kg (280-301) L 12/24/20 04:54 Calcium 9.31 mg/dL (8.4-10.2) 12/27/20 04:31 Iron 60.7 ug/dL (37-170) 12/24/20 04:54 TIBC 257 ug/dL (261-497) L 12/24/20 04:54 % Saturation 24 % 12/24/20 04:54 Ferritin 57.50 ng/mL (11.1-264.0) 12/24/20 04:54 Total Bilirubin 0.17 mg/dL (0.2-1.3) L 12/27/20 04:31 AST 35.7 U/L (14-36) 12/27/20 04:31 ALT 30.7 U/L (0-35) 12/27/20 04:31 Alkaline Phosphatase 86.0 U/L (53-141) 12/27/20 04:31 Troponin I < 0.012 ng/ml (0.0000-0.120) 12/25/20 13:50 Total Protein 6.84 g/dL (6.3-8.2) 12/27/20 04:31 Albumin 3.94 g/dL (3.5-5.0) 12/27/20 04:31 Globulin 2.90 12/27/20 04:31 Albumin/Globulin Ratio 1.35 12/27/20 04:31 TSH 3.040 uIU/L (0.465-4.68) 12/23/20 21:00 Urine Color Yellow (YELLOW) 12/23/20 16:30 Urine Clarity Clear (CLEAR) 12/23/20 16:30 Urine pH 7.0 (5-9) 12/23/20 16:30 Ur Specific [place] 1.025 (1.005-1.030) 12/23/20 16:30 Urine Protein 3+ (NEGATIVE) H 12/23/20 16:30 Urine Glucose (UA) Negative (NEGATIVE) 12/23/20 16:30 Urine Ketones Negative (NEGATIVE) 12/23/20 16:30 Urine Blood 1+ (NEGATIVE) H 12/23/20 16:30 Urine Nitrite Negative (NEGATIVE) 12/23/20 16:30 Urine Bilirubin Negative (NEGATIVE) 12/23/20 16:30 Urine Urobilinogen 0.2 (0.2) 12/23/20 16:30 Ur Leukocyte Esterase Negative (NEGATIVE) 12/23/20 16:30 Urine Microscopic RBC 0-2 (0-2) 12/23/20 16:30 Urine Microscopic WBC 0-2 (0-2) 12/23/20 16:30 Ur Squamous Epith Cells 0-2 (0-5) 12/23/20 16:30 Urine Osmolality 443 mOsmol/kg (.) 12/23/20 16:30 Ur Random Sodium 128 mmol/L (Not Estab.) 12/23/20 16:30 Stl Occult Blood (IFOB) Positive (NEGATIVE) 12/25/20 20:56 Stool Occult Blood #2 No specimen received (NEGATIVE) 12/25/20 20:56 Stool Occult Blood #3 No specimen received (NEGATIVE) 12/25/20 20:56 Adenovirus (PCR) Not detected (NOT DETECT) 12/23/20 17:15 B. pertussis DNA (PCR) Not detected (NOT DETECT) 12/23/20 17:15 B.parapertussis DNA PCR Not detected (NOT DETECT) 12/23/20 17:15 C. pneumoniae DNA (PCR) Not detected (NOT DETECT) 12/23/20 17:15 Coronavirus OC43 (PCR) Not detected (NOT DETECT) 12/23/20 17:15 Coronavirus HKU1 (PCR) Not detected (NOT DETECT) 12/23/20 17:15 Coronavirus 229E (PCR) Not detected (NOT DETECT) 12/23/20 17:15 Coronavirus NL63 (PCR) Not detected (NOT DETECT) 12/23/20 17:15 Human Metapneumovir PCR Not detected (NOT DETECT) 12/23/20 17:15 Influenza Type A (PCR) Not detected (NOT DETECT) 12/23/20 17:15 Influenza B (RT-PCR) Not detected (NOT DETECT) 12/23/20 17:15 M. pneumoniae (PCR) Not detected (NOT DETECT) 12/23/20 17:15 Parainfluenza 1 (PCR) Not detected (NOT DETECT) 12/23/20 17:15 Parainfluenza 2 (PCR) Not detected (NOT DETECT) 12/23/20 17:15 Parainfluenza 3 (PCR) Not detected (NOT DETECT) 12/23/20 17:15 Parainfluenza 4 (PCR) Not detected (NOT DETECT) 12/23/20 17:15 RSV (PCR) Not detected (NOT DETECT) 12/23/20 17:15 Entero/Rhino (PCR) Not detected (NOT DETECT) 12/23/20 17:15 SARS-CoV-2 (PCR) Not detected (NOT DETECT) 12/23/20 17:15 Na/K Trends 12/23/20 12/23/20 12/24/20 Range/Units 15:36 21:00 04:54 Sodium 118.2 L* 118.2 L* 118.1 L* (134.5-145) mmol/L Potassium 4.11 4.43 4.49 (3.5-5.1) mmol/L 12/24/20 12/24/20 12/25/20 Range/Units 11:05 13:15 04:48 Sodium 120.1 L 122.8 L 124.8 L (134.5-145) mmol/L Potassium 4.17 4.26 4.48 (3.5-5.1) mmol/L 12/26/20 12/27/20 Range/Units 04:45 04:31 Sodium 128.7 L 130.4 L (134.5-145) mmol/L Potassium 4.74 5.32 H (3.5-5.1) mmol/L IMAGING: CT Head No acute process on 12/23 CXR: negative on 12/23 CT head 12/22 WNL, no acute process Education Provided to Patient and Family: 1. Diabetes/Lantus 2. Hyponatremia: HCTZ, Polydipsia 3. HTN medications 4. HLD medications. 5. D/C planning. 6. When to return to clinic/hospital. Follow-ups: Thursday at 10 am 12/31/20. Discharge Disposition: Home Hospital Course: 70 yo CF HD admitted on 12/23/[address] Vergara and d/c on 12/27/[address] Vergara. Patient was admitted on 12/23 through [facility] ER after discovery of severe hyponatremia of <120 and RODRIGUEZ. She has long standing history of NIDDM, HTN, seasonal allergies, obesity w/ BMI 31.2. Presented to ED on 12/22 CT head was done, BP controlled and patient d/c home. Returned 12/23 with RODRIGUEZ and on admit had sodium 118.2 corrected to 119-120 based on mild hyperglycemia. She received ~200cc of 3% saline on day 1 with minimal change. 100 cc HD 2 x2 of 3% saline with repeat BMP sodium up to 122.8 mmol/L. No additional 3% sodium given. Her CMP incresaed to sodium 124.8 mmol/L, TSH was normal. Fluid restricted at 1500ml throughout stay, statin increased to 40mg (high potency), thiazide stopped, osmolality for serum/urine and urine sodium returned hypotonic hyponatremia likely renal losses from thiazide. She had RODRIGUEZ throughout stay. Mild nausea. Phys therapy met with patient yesterday. She wants walker at d/c, which I will provide a written order for her. I reviewed Overnight nursing notes, telemetry, vitals. Patient has remained afebrile throughout the entire hospital stay. Heart rate has been controlled with a rate of 65 through 84. BP over last 24 hours has been on the higher end with 143-161/69-80. One low at 96/55. Continue to monitor as outpatient. RR 18, o2 96-999% on RA. Remote Tele NSR over 12/26/20. Per nursing note this morning patient slept well overnight requested IV to be with this morning. Last night 2099 patient more compliant with medications excited about possibility of going home tomorrow. Headache reported at 2012 last night. Tylenol given no further complaints 1835 last night 100% of dinner tolerated well urinary output measured. 1334 yesterday moderately sized bowel movement labs this morning showed white blood cell count 8.12, hemoglobin 10.7 up from 10.3 yesterday stable. Normocytic with MCV of 84.1 and a RDW of 14.7. Sodium this morning 130.4 up from 128.7 yesterday. Potassium is mildly elevated at 5.32. We can monitor this and repeat in the next 24 hours as an outpatient. Glucose 120.5, calcium 9.31 and liver enzymes stable remainder of CMP within normal limits repeat urine and serum osmolality and urine sodium are not yet available. We will follow up with these as an outpatient. I have ordered CBC/CMP for thursday.. I have referred to GI. She has referral already for General Surgery. BM up to date. Patient has improved. Mild hyperkalemia this am. I will order tests as discussed. F/U on osmolality from 12/26/20 of serum/urine. Urine sodium. New medications lantus 10 units daily, lipitor 40mg (high potency), zofran for nausea. Day of d/c Physical examination: Vital Signs - 24 hr 12/26/20 08:00 12/26/20 09:04 12/26/20 10:00 Temperature 98.0 F Pulse Rate 73 Pulse Rate [Apical] 72 Respiratory Rate 16 18 Blood Pressure 161/72 H 150/71 H O2 Sat by Pulse Oximetry 98 12/26/20 14:00 12/26/20 18:00 12/26/20 20:00 Temperature 98.2 F 98 F Pulse Rate 82 84 Pulse Rate [Apical] 67 Respiratory Rate 18 16 Blood Pressure 150/69 H 158/78 H O2 Sat by Pulse Oximetry 98 97 12/26/20 21:44 12/27/20 02:00 12/27/20 05:50 Temperature 98.9 F 97.8 F 97.5 F L Pulse Rate 81 66 78 Pulse Rate [Apical] Respiratory Rate 18 18 18 Blood Pressure 143/71 H 96/55 L 145/80 H O2 Sat by Pulse Oximetry 98 96 99 REVIEW OF SYMPTOMS: (Positives bolded) General: weight loss, fever, chills, night sweats,fatigue,appetite loss HEENT: blurry vision, eye pain, eye discharge, dry eyes, decreased vision, sore throat tinnitus, bloody nose, hearin gloss, sinus pain/pressure, ear pain/pressure. Respiratory:shortness of breath,cough, hemoptysis, wheezing, pleurisy, Cardiovascular:chest pain, PND, palpitation, edema, orthopnea, syncope, swelling of extremities Gastro: Nausea,vomiting,diarrhea, hematemesis, abdominal pain, constipation Genito:hematuria, dysuria, glycosuria, hesitancy, frequency, incontinence Musckelo: Arthralgia,myalgia, muscle weakness,joint swelling, NSAID use Skin:rash, pruritis, sores, nail changes, skin thickening, change in wart/mole, itching, rash, new lesions,pruritus, nail changes Neuro: Headache,numbness, ataxia, tremor, vertigo,weakness, memory loss, Irritability, dizziness Endocrine:excessive thirst, polyuria, cold intolerance, heat intolerance, goiter Psychiatric:depression, anxiety, anti-depressants, alcohol abuse, drug abuse, insomnia, change in sleep pattern and mood changes Heme/lymph:easy bruising, bleeding gums, blood clots, swollen glands, lymphedema, Allergic/immune:allergic rhinitis, hay fever, asthma, hives Constitutional:Appearance-No acute distress, Consistent with stated age. Orientation- Oriented x 3, alertGeneral- Patient is pleasant and cooperative with the interview and exam today. Integumentary: General-No rashes, ulcers or lesions.Palpation- Normal skin moisture/turgor. Skin is warm to touch, appropriate. Capillary refill is normal bilateral Upper and lower extremity. Small abrasion left PSIS padded, C/D/I. Continue to monitor. Head/Neck:Head- normocephalic and atraumatic.Neck- without visible/palpable lumps or pulsations.Palpation- No bony tenderness about head/neck along frontal, occipital, temporal, parietal, mastoid, jawline, zygoma, orbit or any other location. NO temporal artery tenderness. No TMJ tenderness. Neck Supple.Thyroid-No thyromegaly, no nodules Eye:Bilaterally PERRLA, EOMI. No discharge. ENMT:Nose and sinus- No sinus tenderness along frontal/maxillary region. External appearance normal and midline.Nares- bilateral quiet airflow, no discharge.Nasal mucosa- No bleeding noted and no ulcerations observed. [place], moist. Turbinates non boggy.Lips-normal color, moist without cracks/lesions Oral Cavity/Palate- hard/soft palate intact without lesions, oral mucosa pink and moist. Tongue normal midline.Oropharynx- no pharyngeal erythema, Uvula midline. No post nasal drip. No exudate.Salivary glands- Non tender to palpation CHEST/LUNG:Inspection- symmetric chest wall no pectus deformity. Normal effort, no distress, no use of accessory muscles.Palpation- nontender sternum, ribline. No abnormal pulsations.Auscultation- Breath sounds normal throughout all lung lara. Normal tracheal sounds, Normal bronchial sounds overlying sternum, Bronchovessicular sounds normal between scapulae posteriorly, Normal vessicular breath sounds heard throughout periphery. Lungs are clear today. Adventitious sounds- No wheezes, rales, rhonchi. CARDIOVASCULAR:Carotid artery-normal, no bruits or abnormal pulsations. Jugular vein- no pulsations.Palpation/Percussion- Normal PMI, no palpable thrill Auscultation- Regular rate and rhythm. No murmur noted in sitting, supine positions.Extremities- no digital clubbing, cyanosis, edema, increased warmth. ABDOMEN:Inspection- normal and no visible pulsations. Normal contour. Auscultation- Bowel sounds normal, no abdominal bruits.Palpation/Percussion- soft, non-tender, no rebound tenderness, no rigidity (guarding), no jar tenderness, no masses.Liver-no hepatomegaly,Spleen no splenomegaly, Peripheral Vascular:Upper extremityLeft- Normal temperature with pink nailbeds and no ulcerations.Upper extremity Right-Normal temperature with pink nailbeds and no ulcerations.Lower extremity- Normal temperature with pink nailbeds and no ulcerations. DP pulses 2+ bilaterally. Pedal hair intact. Normal capillary refill.Edema- None. Musculoskeletal:Generalized-No generalized swelling or edema of extremities, no digital clubbing or cyanosis, neurovascularly intact all four extremities. Claw toes. No changes in feet/legs. Back pain: No spinous process tenderness along C/T/L spine. Paraspinal tenderness present bilaterally along thoracic and lumbar region. Hip flexion 5/5 bilat, knee extension 5/5 bilat, knee flexion 5/5 bilat. Ankle dorsiflexion and plantar flexion 5/5 bilaterally. Hallux strength normal symmetrical, no atrophy. No ankle clonus. Normal reflexes, symmetrical. no foot drop. Normal sensation to light touch bilaterally. Neurological:General- Moves all 4 extremities symmetrically. Symmetrical face and body posture.Cranial nerves- individually evaluated II-XII and intact. PERRLA, Normal EOMI, visual/special senses appear intact, Face is symmetrical and normal sensation/movement, normal tongue, normal strength/posture of neck musculature.Finger to nose negative, romberg negative. Will get phys therapy involved. Neuropsych:Oriented- Person, place, time. (AAOx3),Mood/affect- normal and congruent. Able to articulate well.Speech-Normal speech, normal rate, normal tone, normal use of language, volume and coherence.Limited understanding. Lymphatic: Head/Neck- normal size and non tender to palpation.Axillary- normal size and non tender to palpation.Femoral and Inguinal- normal size and non tender to palpation. Plan: 1. D/C home today. 2. F/U in office with me Thursday at 1000 12/31/20. 3. New medications have been sent to the pharmacy - Lipitor 40mg for cholesterol - Amlodipine 10mg for blood pressure - Lantus 10 units at night for diabetes - Zofran for nausea. 4. STOP THE Hydrochlorothiazide. 5. Still try to limit fluid intake to no more than 2 liters per day. 6. Please get labs in 48 hours for potassium. 7. Follow up with surgeon regarding gallbladder as outpatient 8. Would like to refer to Gastroenterology (GI) for blood in stool. Prescription for walker sent to [facility] 2. Return to ER if worsening. Sodium is now at >130. Stable. Medically optimized for discharge. 35 minutes spent on discharge process today.
[2020-12-27] MEDS: LOVENOX SUBCUT SCH (08:56)
[2020-12-27] MEDS: LANTUS SUBCUT SCH (08:56)
[2020-12-27] MEDS: ZESTRIL PO SCH (08:57)
[2020-12-27] MEDS: SINGULAIR PO SCH (08:57)
[2020-12-27] MEDS: GLUCOPHAGE PO SCH (08:57)
[2020-12-27] MEDS: FERROUS SULFATE PO SCH (08:57)
[2020-12-27 10:14] LABS: SODIUM,URINE 40 mmol/L (Not Estab.)
[2020-12-28 02:25] LABS: OSMOLALITY,URINE 329 mOsmol/kg (.)
== END 2020-12-27 09:14 | disposition home or self-care (01) | DRG 305 ==
LOC: ED 15:06 → MEDSURG A 18:16
PROVIDERS: ADMIT Family Medicine; ATTEND Family Medicine
DX: R19.5 Other fecal abnormalities; R07.9 Chest pain, unspecified; Z91.19 Patient's noncompliance with other medical treatment and regimen; E11.9 Type 2 diabetes mellitus without complications; R11.0 Nausea; E87.5 Hyperkalemia; I10 Essential (primary) hypertension; M54.9 Dorsalgia, unspecified; D64.9 Anemia, unspecified; E78.5 Hyperlipidemia, unspecified; Z68.31 Body mass index [BMI] 31.0-31.9, adult; R53.1 Weakness; Z20.822 Contact with and (suspected) exposure to COVID-19; M19.90 Unspecified osteoarthritis, unspecified site

== ENCOUNTER 2023-12-21 15:06 | Inpatient (IN) ==
--- NOTE | 2023-12-21 15:16 | ED.PDOC ---
General ED Provider: Dr. PROMISE JOY MD Chief Complaint: Non-specific Complaint Stated Complaint: Patient is a 73-year-old female that reported to the emergency department via EMS for chills. Patient stated the chills started this morning. Patient stated that she has had congestion with her chills. Patient stated that she had a subjective fever and does not have a thermometer to check her temperature. Patient stated that she is tried [id number] cold medicine with minimal relief this morning. Patient also stated that she had a cough with clear mucus. Patient stated that this also started this morning. Patient denied being around any other sick contacts. Patient denied any chest pain, shortness of breath, nausea vomiting diarrhea, or any other acute symptoms not currently mentioned in HPI. Patient's vital signs are currently stable. Time Seen by Provider: 12/21/23 15:10 Mode of Arrival: Ambulance Information Source: Patient Exam Limitations: No limitations Primary Care Provider: HARJIT MAYS Nursing and Triage Documentation Reviewed and Agree: Yes Does Patient Take Opioids?: No Is Patient Opioid Naive?: No What is Opioid Naive?: *Opioid Naive implies the patient is not already taking opioids or not chronically receiving opioids on a daily basis. *PRN dosing is not "usually" associated with tolerance. *Patients are at higher risk of over-sedation and aspiration. Is Patient Opioid Tolerant?: No What is Opioid Tolerant?: *Opioid Tolerance implies less than the expected response to an opioid. *Acquired tolerance is defined by the patient taking 60mg of oral morphine daily (or equianalgesic dose of another opioid) for 1 week or more. *Often associated with chronic pain. *May take more than usual dose to achieve desired pain control. Review of Systems Review Of Systems Constitutional: Reports Chills Eyes: Reports No symptoms Ears, Nose, Mouth, Throat: Reports Throat pain Respiratory: Reports No symptoms Cardiac: Reports No symptoms GI: Reports No symptoms : Reports No symptoms Musculoskeletal: Reports No symptoms Skin: Reports No symptoms Neurological: Reports No symptoms Endocrine: Reports No symptoms Hematologic/Lymphatic: Reports No symptoms All Other Systems: Reviewed and Negative [facility] Medical History Low serum sodium R79.89 - Other specified abnormal findings of blood chemistry (ICD-10) Accelerated hypertension I10 - Essential (primary) hypertension (ICD-10) Acute hyponatremia E87.1 - Hypo-osmolality and hyponatremia (ICD-10) Hypertension I10 - Essential (primary) hypertension (ICD-10) 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 - Malignant (primary) neoplasm, unspecified (ICD-10) Anemia D64.9 - Anemia, unspecified (ICD-10) Diabetes mellitus A1C 6.53, previously 8.84 E11.9 - Type 2 diabetes mellitus without complications (ICD-10) Urinary tract infection N39.0 - Urinary tract infection, site not specified (ICD-10) Family History Other No known health problems Social History Smoking and tobacco status: Former smoker Tobacco: How many years used: 5 Second hand smoke exposure: Yes Alcohol intake: never Substance use type: does not use Traci/roman catholic: Sikh Special traci needs: No Agree to transfusion: Yes Adopted: No Caregiver/support person: Yes Household members: significant other Housing: house Lives independently: Yes Highest education level completed: 8th grade Financial difficulty paying for basics: not applicable service: No Current occupational status: disabled Current occupational exposures/hazards: No Pets and animals: Yes Leisure activites: other History of recent travel: No Sexually active: No Do you think of yourself as: straight/heterosexual Current gender identity: female Seatbelt use: never Helmet use: No Drives intoxicated or rides with intoxicated cross country truck driver: No Water heater temperature set < 120 degrees: Yes Working smoke detector in home: Yes Fire extinguisher in home: No Carbon monoxide detector in home: Yes Firearms in home: No Surgical History H/O foot surgery Z98.890 - Other specified postprocedural states (ICD-10) H/O tubal ligation Z98.51 - Tubal ligation status (ICD-10) History of nasal surgery Z98.890 - Other specified postprocedural states (ICD-10) (11/19/15) [place] History of musculoskeletal system surgery "growth behind femur" Z98.890 - Other specified postprocedural states (ICD-10) Status post hysterectomy Z90.710 - Acquired absence of both cervix and uterus (ICD-10) Cataract extraction and insertion of intraocular lens x2 Female Reproductive History Menstrual Hx Hysterectomy: No Hx Tubal Ligation: Yes Physical Exam Physical Exam Appearance: Reports Well-appearing, No pain distress and Well-nourished Ill-appearing: None Pain Distress: None Eyes: Reports LEXI, EOMI and Conjunctiva clear ENT: Reports Ears normal, Oropharynx normal and Other (Patient had tenderness to palpation of the maxillary sinuses.) Neck: Supple Respiratory: Reports Airway patent, Breath sounds clear, Breath sounds equal and Respirations nonlabored Cardiovascular: Reports RRR, Pulses normal, No rub and No murmur GI/: Reports Soft, Nontender, No masses, Bowel sounds normal and No Organomegaly Musculoskeletal: Reports Normal strength, ROM intact, No edema and No calf tenderness Skin: Reports Warm, Dry and Normal color Neurological: Reports Sensation intact, Motor intact, Reflexes intact, Cranial nerves intact, Alert and Oriented Psychiatric: Reports Affect appropriate and Mood appropriate Course Course 12/21/23 16:50 12/21/23 16:50 Orders, Labs, Meds: Lab Review 12/21/23 12/21/23 15:22 16:50 WBC 6.63 RBC 3.98 L Hgb 10.8 L Hct 33.8 L MCV 84.9 MCH 27.1 MCHC 32.0 RDW Coeff of Chary 14.6 Plt Count 309 Immature Gran % (Auto) 0.8 Neut % (Auto) 75.3 H Lymph % (Auto) 10.6 Stone % (Auto) 11.0 H Eos % (Auto) 1.7 Baso % (Auto) 0.6 Neut # (Auto) 5.0 Lymph # (Auto) 0.7 Stone # (Auto) 0.7 Eos # (Auto) 0.1 Baso # (Auto) 0.0 Immature Gran # (Auto) 0.1 ESR 45 H Sodium 134.7 Potassium 4.22 Chloride 98.3 Carbon Dioxide 27.0 Anion Gap 13.62 BUN 23.5 H Creatinine 0.99 Estimated GFR (MDRD) 55.00 BUN/Creatinine Ratio 23.73 Glucose 129.4 H Lactic Acid 1.21 Calcium 9.66 Total Bilirubin 0.29 AST 38.0 H ALT 28.3 Alkaline Phosphatase 92.2 Total Protein 8.06 Albumin 4.75 Globulin 3.31 Albumin/Globulin Ratio 1.43 Procalcitonin < 0.05 Influ A Molecular Assay Negative by naat Influ B Molecular Assay Negative by naat RSV Antigen Negative by naat SARS CoV-2 RNA Rapid NORMA Positive H Orders Category Date Time Status ED IV/MEDIPORT/POWERPORT .ONCE EMERGENCY 12/21/23 16:40 Active ED VITAL SIGNS .ONCE EMERGENCY 12/21/23 16:40 Active C-REACTIVE PROTEIN Stat LAB 12/21/23 16:50 Received CBC W/ AUTO DIFF Stat LAB 12/21/23 16:50 Completed COMPREHENSIVE METABOLIC PANEL Stat LAB 12/21/23 16:50 Completed ESR Stat LAB 12/21/23 16:50 Completed FLU A & B MOLECULAR [FLU A/B MOLECULAR] Stat LAB 12/21/23 15:22 Completed LACTIC ACID Stat LAB 12/21/23 16:50 Completed PROCALCITONIN Stat LAB 12/21/23 16:50 Completed RAPID STREP SCREEN [MOLECULAR GROUP A STREP] Stat LAB 12/21/23 15:22 Completed RSV Stat LAB 12/21/23 15:22 Completed SARS COV-2 RNA RAPID NORMA Stat LAB 12/21/23 15:22 Completed URINALYSIS C & S IF INDICATED Stat LAB 12/21/23 16:40 Uncollected 0.9 % Sodium Chloride [Saline Flush] Meds 12/21/23 16:39 Active 1 syr IVF PRN PRN Acetaminophen [Tylenol] Meds 12/21/23 16:39 Discontinued 1,000 mg PO ONCE STA Sodium Chloride 0.9% [Sodium Chloride] 1,000 ml Meds 12/21/23 16:39 Discontinued IV BOLUS CHEST, 1V AP ONLY Stat RADS 12/21/23 16:39 Taken Medications Generic Name Dose Route Start Last Admin Trade Name Freq PRN Reason Stop Dose Admin Sodium Chloride 1 syr 12/21/23 16:39 0.9% Sodium Chloride 10 Ml Disp.Syrin IVF PRN PRN To flush IV Discontinued Medications Generic Name Dose Route Start Last Admin Trade Name Freq PRN Reason Stop Dose Admin Acetaminophen 1,000 mg 12/21/23 16:39 12/21/23 17:02 Acetaminophen 500 Mg Tablet PO 12/21/23 16:40 1,000 mg ONCE STA Administration Sodium Chloride 1,000 mls @ 1,000 mls/hr 12/21/23 16:39 12/21/23 17:10 Sodium Chloride IV 12/21/23 17:38 1,000 mls/hr BOLUS ONE Administration Vital Signs: Temp Pulse Resp BP Pulse Ox 12/21/23 15:14 103.4 F H 115 H 18 146/71 H 94 L Discharge Plan Discharge Patient Disposition: PLACED OBSERVATION Discharge Problem: Pneumonia due to 2019 novel coronavirus Sepsis Qualifiers: Sepsis type: sepsis due to unspecified organism Sepsis acute organ dysfunction status: without acute organ dysfunction Qualified Code(s): A41.9 - Sepsis, unspecified organism Did you review [place] [employer] for [place] controlled substances?: Not Applicable ED Provider: PROMISE JOY Condition: Stable Physician Progress Note: Patient is a 73-year-old female that reported to the emergency department via EMS for chills. Patient stated the chills started this morning. Patient stated that she has had congestion with her chills. Patient stated that she had a subjective fever and does not have a thermometer to check her temperature. Patient stated that she is tried [id number] cold medicine with minimal relief this morning. Patient also stated that she had a cough with clear mucus. Patient stated that this also started this morning. Patient denied being around any other sick contacts. Patient denied any chest pain, shortness of breath, nausea vomiting diarrhea, or any other acute symptoms not currently mentioned in HPI. Patient's vital signs are currently stable. Will order COVID, influenza, RSV, and strep test. -Patient is tachycardic with a fever. Will work her up for sepsis. Will give IV fluids 1 L normal saline bolus for dehydration. Will give p.o. Tylenol 1 g for fever of 103.4 Fahrenheit. Will order baseline labs and chest x-ray. -Patient is positive for COVID. -CBC and CMP unremarkable. Lactic acid negative. Procalcitonin negative. -Chest x-ray shows groundglass opaque disease. This is consistent with patient's COVID pneumonia. This chest x-ray was read by myself. ([id number]) spoke to the hospitalist about patient's current condition and diagnosis of COVID-pneumonia. She has agreed to place patient on observation status. Patient stable at time of admittance.
[2023-12-21 16:07] LABS: SARS COV-2 RNA RAPID NAAT POSITIVE (NEGATIVE)
[2023-12-21 16:26] LABS: MOLECULAR FLU A NEGATIVE BY NAAT (NEGATIVE); MOLECULAR FLU B NEGATIVE BY NAAT (NEGATIVE); RSV MOLECULAR NEGATIVE BY NAAT (NEGATIVE)
[2023-12-21 16:55] LABS: BASOPHILS % (AUTO) 0.6 % (0.0-3.0); EOSINOPHILS # (AUTO) 0.1 K/ul (0.0-0.7); EOSINOPHILS % (AUTO) 1.7 % (0.0-7.0); HEMATOCRIT 33.8 % (37.0-47.0); HEMOGLOBIN 10.8 g/dl (12.0-16.0); IMMATURE GRANULOCYTE # (AUTO) 0.1 (0.0-1.0); IMMATURE GRANULOCYTE % (AUTO) 0.8 % (0.0-5.0); LYMPHOCYTES # (AUTO) 0.7 K/uL (0.60-3.4); LYMPHOCYTES % (AUTO) 10.6 (10.0-50.0); MEAN CORPUSCULAR HEMOGLOBIN 27.1 pg (27.0-31.0); MEAN CORPUSCULAR VOLUME 84.9 fl (81.0-99.0); MONOCYTES # (AUTO) 0.7 K/uL (0.4-2.0); NEUTROPHILS % (AUTO) 75.3 % (42.2-75.2); PLATELET COUNT 309 10^3/uL (140-440); RDW COEFFICIENT OF VARIATION 14.6 % (11.6-14.8); RED BLOOD COUNT 3.98 10^6/ul (4.20-5.40); WHITE BLOOD COUNT 6.63 K/ul (4.6-10.2)
[2023-12-21] MEDS: TYLENOL PO STA (17:02)
[2023-12-21] MEDS: SODIUM CHLORIDE 1,000 ML IV ONE (17:10)
[2023-12-21 17:11] LABS: ALANINE AMINOTRANSFERASE 28.3 U/L (0-35); ALBUMIN 4.75 g/dL (3.5-5.0); ALKALINE PHOSPHATASE 92.2 U/L (53-141); BILIRUBIN,TOTAL 0.29 mg/dL (0.2-1.3); BLOOD UREA NITROGEN 23.5 mg/dL (7-17); CALCIUM 9.66 mg/dL (8.4-10.2); CHLORIDE 98.3 mmol/L (98-107); CREATININE 0.99 mg/dL (0.60-1.30); GLUCOSE 129.4 mg/dL (74-106); POTASSIUM 4.22 mmol/L (3.5-5.1); SODIUM 134.7 mmol/L (134.5-145); TOTAL PROTEIN 8.06 g/dL (6.3-8.2)
[2023-12-21 17:31] LABS: ERYTHROCYTE SEDIMENTATION RATE 45 mm/hr (0-20)
[2023-12-21 19:34] LABS: PROTHROMBIN TIME 9.8 SEC (9.3-11.0)
[2023-12-21 20:12] VITALS: BMI 29.4
[2023-12-21] MEDS: VEKLURY 200 MG in SODIUM CHLORIDE 250 ML IV ONE (20:40)
[2023-12-21] MEDS: NEURONTIN PO SCH (20:56)
[2023-12-21] MEDS: REQUIP PO SCH (20:56)
[2023-12-21] MEDS: COREG PO SCH (20:57)
[2023-12-21] MEDS: CATAPRES PO SCH (20:57)
[2023-12-21] MEDS: NON-FORMULARY MEDICATION (Dapagliflozin Propanediol [Farxiga] 10 mg tablet) PO SCH (20:59)
[2023-12-21] MEDS ORDERED: VENTOLIN HFA IH PRN (21:00)
[2023-12-21] MEDS: LIPITOR PO SCH (21:13)
--- NOTE | 2023-12-22 00:43 | DI ---
EXAM: FRONTAL VIEW OF THE CHEST. HISTORY: Fever, chills, COVID-19 positive. COMPARISON: Chest radiograph 10/29/2023. FINDINGS: Atherosclerotic calcifications of the aorta. Normal heart size. Patchy ground-glass opacities at the lung bases bilaterally. Stable calcified granulomas in the lungs and mediastinum. No visible pleural effusion or pneumothorax. No acute osseous abnormality. Multilevel degenerative spondylosis. Degenerative changes of the shoul ders. IMPRESSION: Subtle bibasilar opacities concerning for pneumonia. Calcified atherosclerosis.
[2023-12-22 05:18] LABS: BASOPHILS % (AUTO) 0.9 % (0.0-3.0); EOSINOPHILS # (AUTO) 0.1 K/ul (0.0-0.7); EOSINOPHILS % (AUTO) 1.6 % (0.0-7.0); HEMATOCRIT 29.1 % (37.0-47.0); HEMOGLOBIN 9.3 g/dl (12.0-16.0); IMMATURE GRANULOCYTE % (AUTO) 0.7 % (0.0-5.0); LYMPHOCYTES # (AUTO) 0.8 K/uL (0.60-3.4); MEAN CORPUSCULAR HEMOGLOBIN 27.4 pg (27.0-31.0); MEAN CORPUSCULAR VOLUME 85.8 fl (81.0-99.0); MONOCYTES # (AUTO) 0.7 K/uL (0.4-2.0); MONOCYTES % (AUTO) 15.1 (0-10); NEUTROPHILS # (AUTO) 2.8 K/ul (2.0-6.9); NEUTROPHILS % (AUTO) 63.7 % (42.2-75.2); PLATELET COUNT 261 10^3/uL (140-440); RDW COEFFICIENT OF VARIATION 14.7 % (11.6-14.8); RED BLOOD COUNT 3.39 10^6/ul (4.20-5.40); WHITE BLOOD COUNT 4.38 K/ul (4.6-10.2)
[2023-12-22 05:31] LABS: ALANINE AMINOTRANSFERASE 24.7 U/L (0-35); ALBUMIN 3.75 g/dL (3.5-5.0); ASPARTATE AMINO TRANSFERASE 40.6 U/L (14-36); BILIRUBIN,TOTAL 0.18 mg/dL (0.2-1.3); BLOOD UREA NITROGEN 21.5 mg/dL (7-17); CALCIUM 8.88 mg/dL (8.4-10.2); CARBON DIOXIDE 23.4 mmol/L (22-30.0); CHLORIDE 103.3 mmol/L (98-107); CREATININE 0.77 mg/dL (0.60-1.30); MAGNESIUM 1.78 mg/dL (1.6-2.3); POTASSIUM 4.3 mmol/L (3.5-5.1); PROTHROMBIN TIME 9.9 SEC (9.3-11.0); SODIUM 134.9 mmol/L (134.5-145); TOTAL PROTEIN 6.56 g/dL (6.3-8.2)
[2023-12-22] MEDS: SINGULAIR PO SCH (08:06)
[2023-12-22] MEDS: ZESTRIL PO SCH (08:06)
[2023-12-22] MEDS: JANUVIA PO SCH (08:07)
[2023-12-22] MEDS: HYDROCHLOROTHIAZIDE PO SCH (08:07)
[2023-12-22] MEDS: IMDUR PO SCH (08:07)
[2023-12-22] MEDS: NORVASC PO SCH (08:08)
[2023-12-22] MEDS: ASPIRIN EC PO SCH (08:08)
[2023-12-22] MEDS: PRILOSEC PO SCH (08:09)
[2023-12-22] MEDS: JARDIANCE PO SCH (08:09)
[2023-12-22] MEDS: MAGNESIUM SULF 2 G/50 ML BAG 2 GM/50 ML PIGGYBACK IV ONE (08:59)
[2023-12-22] MEDS: LACTATED RINGERS 1,000 ML IV SCH (10:17)
--- NOTE | 2023-12-22 11:48 | PCM ---
Date of Service Date Seen by Provider: 12/22/23 Time Seen by Provider: 08:50 Admit Day/Time Admission Date: 12/21/23 Admission Time: 18:02 Reason for Admission Chief Complaint: COVID PNEUMONIA Hospital Provider Hospital Provider: SHARON PARKER PA-C, [facility] [place] Primary Care Physician Primary Care Physician: HARJIT MAYS History of Present Illness History of Present Illness: Patient is a 73 year old female with pmhx of hyperlipidemia, DMT2, COPD, hypertension, chronic back pain, stress incontinence, anemia, osteoarthritis who presented to ER with 1 day history of worsening cough, sore throat, sob, and high fever. Patient denies history of covid. She has been on RA. ERP felt with her comorbidities and CXR showing pneumonia patient would benefit from being observed overnight. Labs and vitals unremarkable. Pt states she lives with her ex . This morning patient's BP noted to be low. Pt is asymptomatic. Has been ambulatory to the bathroom. Still on RA. Remdesivir started last night. Pt started on some fluids. Case Discussed With Case Discussed With: Patient's case was discussed with the ER Physicians, Dr. Coelho. [facility] Medical History COPD (chronic obstructive pulmonary disease) J44.9 - Chronic obstructive pulmonary disease, unspecified (ICD-10) Myocardial infarct I21.9 - Acute myocardial infarction, unspecified (ICD-10) Low serum sodium R79.89 - Other specified abnormal findings of blood chemistry (ICD-10) Accelerated hypertension I10 - Essential (primary) hypertension (ICD-10) Acute hyponatremia E87.1 - Hypo-osmolality and hyponatremia (ICD-10) Hypertension I10 - Essential (primary) hypertension (ICD-10) 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 - Malignant (primary) neoplasm, unspecified (ICD-10) Anemia D64.9 - Anemia, unspecified (ICD-10) Diabetes mellitus A1C 6.53, previously 8.84 E11.9 - Type 2 diabetes mellitus without complications (ICD-10) Urinary tract infection N39.0 - Urinary tract infection, site not specified (ICD-10) Surgical History History of bladder surgery Z98.890 - Other specified postprocedural states (ICD-10) History of cholecystectomy Z90.49 - Acquired absence of other specified parts of digestive tract (ICD- 10) History of hip replacement Z96.649 - Presence of unspecified artificial hip joint (ICD-10) H/O foot surgery Z98.890 - Other specified postprocedural states (ICD-10) H/O tubal ligation Z98.51 - Tubal ligation status (ICD-10) History of nasal surgery Z98.890 - Other specified postprocedural states (ICD-10) (11/19/15) [place] History of musculoskeletal system surgery "growth behind femur" Z98.890 - Other specified postprocedural states (ICD-10) Status post hysterectomy Z90.710 - Acquired absence of both cervix and uterus (ICD-10) Cataract extraction and insertion of intraocular lens x2 Family History Other No known health problems Social History Smoking and tobacco status: Former smoker Tobacco: How many years used: 5 Second hand smoke exposure: Yes Alcohol intake: never Substance use type: does not use Traci/restoration: Mu-Ism Special traci needs: No Agree to transfusion: Yes Adopted: No Caregiver/support person: Yes Household members: significant other Housing: house Lives independently: Yes Highest education level completed: 8th grade Financial difficulty paying for basics: not applicable service: No Current occupational status: disabled Current occupational exposures/hazards: No Pets and animals: Yes Leisure activites: other History of recent travel: No Sexually active: No Do you think of yourself as: straight/heterosexual Current gender identity: female Seatbelt use: never Helmet use: No Drives intoxicated or rides with intoxicated regional truck driver: No Water heater temperature set < 120 degrees: Yes Working smoke detector in home: Yes Fire extinguisher in home: No Carbon monoxide detector in home: Yes Firearms in home: No Allergies Allergies Allergy/AdvReac Type Severity Reaction Status Date / Time diclofenac [From Voltaren] AdvReac Severe sick Verified 12/21/23 15:14 Iodinated Contrast Media AdvReac Unknown unknown Verified 12/21/23 15:14 sulfamethoxazole AdvReac "vaginal Verified 12/21/23 15:14 [From Bactrim] pain" trimethoprim [From Bactrim] AdvReac "vaginal Verified 12/21/23 15:14 pain" Current Medications Home Medications amlodipine 10 mg tablet 10 mg PO QDAY 09/30/23 [History Confirmed 12/21/23 Last Taken 12/21/23] aspirin 81 mg tablet,delayed release 81 mg PO QDAY 09/30/23 [History Confirmed 12/21/23 Last Taken 12/21/23] atorvastatin 40 mg tablet 40 mg PO QHS 09/30/23 [History Confirmed 12/21/23 Last Taken 12/20/23] carvedilol 12.5 mg tablet (Coreg) 12.5 mg PO BID 09/30/23 [History Confirmed 12/21/23 Last Taken 12/21/23] clonidine HCl 0.1 mg tablet 0.1 mg PO BID 09/30/23 [History Confirmed 12/21/23 Last Taken 12/21/23] dapagliflozin propanediol 10 mg tablet (Farxiga) 10 mg PO QPM 09/30/23 [History Confirmed 12/21/23 Last Taken 12/20/23] dulaglutide 0.75 mg/0.5 mL subcutaneous pen injector ([facility]) 0.75 mg subcut QWEEK 09/30/23 [History Confirmed 12/21/23 Last Taken 12/15/23] gabapentin 300 mg capsule 300 mg PO QHS 09/30/23 [History Confirmed 12/21/23 Last Taken 12/20/23] hydrochlorothiazide 25 mg tablet 25 mg PO QAM 09/30/23 [History Confirmed Last Taken 12/21/23] isosorbide mononitrate 30 mg tablet,extended release 24 hr 30 mg PO QAM 09/30/23 [History Confirmed 12/21/23 Last Taken 12/21/23] lisinopril 40 mg tablet 40 mg PO QDAY 09/30/23 [History Confirmed 12/21/23 Last Taken 12/21/23] montelukast 10 mg tablet 10 mg PO QDAY 09/30/23 [History Confirmed 12/21/23 Last Taken 12/21/23] omeprazole 40 mg capsule,delayed release 40 mg PO QDAY 09/30/23 [History Confirmed 12/21/23 Last Taken 12/21/23] ropinirole 0.5 mg tablet 0.5 mg PO QHS 09/30/23 [History Confirmed 12/21/23 Last Taken 12/20/23] sitagliptin phosphate 100 mg tablet (Januvia) 100 mg PO QDAY 09/30/23 [History Confirmed 12/21/23 Last Taken 12/21/23] albuterol sulfate 90 mcg/actuation aerosol inhaler 2 puff inhalation BID 10/14/23 [History Confirmed 12/21/23 Last Taken 12/21/23] amoxicillin 875 mg-potassium clavulanate 125 mg tablet 1 tab PO Q12H #14 tabs 12/21/23 [Rx Last Taken Unknown] prednisone 50 mg tablet 50 mg PO DAILY #5 tabs 12/21/23 [Rx Last Taken Unknown] Home Acetaminophen (Acetaminophen 325 Mg Tablet) 650 mg PO Q4H PRN PRN Reason: Mild Pain Albuterol Sulfate (Albuterol Sulfate 8 Gm Inhaler) 2 puff IH Q4H PRN PRN Reason: SHORTNESS OF BREATH Amlodipine Besylate (Amlodipine Besylate 5 Mg Tablet) 10 mg PO DAILY [facility] Last Admin: 12/22/23 08:08 Dose: 10 mg Aspirin (Aspirin 81 Mg Tablet.) 81 mg PO DAILYWM2 [facility] Last Admin: 12/22/23 08:08 Dose: 81 mg Atorvastatin Calcium (Atorvastatin Calcium 20 Mg Tablet) 40 mg PO BEDTIME [facility] Last Admin: 12/21/23 21:16 Dose: Not Given Carvedilol (Carvedilol 12.5 Mg Tablet) 12.5 mg PO BIDWM2 [facility] Last Admin: 12/22/23 08:09 Dose: 12.5 mg Clonidine (Clonidine Hcl 0.1 Mg Tablet) 0.1 mg PO BID [facility] Last Admin: 12/22/23 08:08 Dose: 0.1 mg Empagliflozin (Empagliflozin 10 Mg Tablet) 25 mg PO DAILY [facility] Last Admin: 12/22/23 08:09 Dose: 25 mg Enoxaparin Sodium (Enoxaparin Sodium 40 Mg/0.4 Ml Syr) 40 mg SUBCUT DAILY [facility] Last Admin: 12/22/23 12:34 Dose: 40 mg Gabapentin (Gabapentin 300 Mg Capsule) 300 mg PO BEDTIME [facility] Last Admin: 12/21/23 20:56 Dose: 300 mg Hydrochlorothiazide (Hydrochlorothiazide 25 Mg Tablet) 25 mg PO QAM [facility] Last Admin: 12/22/23 08:07 Dose: 25 mg Lactated Ringer's (Lactated Ringers) 1,000 mls @ 100 mls/hr IV .Q10H [facility] Last Admin: 12/22/23 10:17 Dose: 100 mls/hr Remdesivir 100 mg/ Sodium (Chloride) 100 mls @ 200 mls/hr IV ONCE ONE Stop: 12/23/23 12:29 Insulin Human Lispro (Insulin Lispro 100 Unit/Ml (10 Ml Vial)) 0 unit SUBCUT PRN PRN; Protocol PRN Reason: Hyperglycemia Isosorbide Mononitrate (Isosorbide Mononitrate 30 Mg Tab.Er.24h) 30 mg PO [facility] Last Admin: 12/22/23 08:07 Dose: 30 mg Lisinopril (Lisinopril 40 Mg Tablet) 40 mg PO DAILY [facility] Last Admin: 12/22/23 08:06 Dose: 40 mg Montelukast Sodium (Montelukast Sodium 10 Mg Tablet) 10 mg PO DAILY [facility] Last Admin: 12/22/23 08:06 Dose: 10 mg Omeprazole (Omeprazole 20 Mg Capsule.Dr) 40 mg PO QDAC2 [facility] Last Admin: 12/22/23 08:09 Dose: 40 mg Ondansetron HCl (Ondansetron Hcl/Pf 4 Mg/2 Ml Sdv) 4 mg IVP Q6H PRN PRN Reason: Nausea / Vomiting Ropinirole HCl (Ropinirole Hcl 0.25 Mg Tablet) 0.5 mg PO BEDTIME [facility] Last Admin: 12/21/23 20:56 Dose: 0.5 mg Sitagliptin Phosphate (Sitagliptin Phosphate 50 Mg Tablet) 100 mg PO DAILY [facility] Last Admin: 12/22/23 08:07 Dose: 100 mg Sodium Chloride (0.9% Sodium Chloride 10 Ml Disp.Syrin) 1 syr IVF PRN PRN PRN Reason: To flush IV Discontinued Medications Acetaminophen (Acetaminophen 500 Mg Tablet) 1,000 mg PO ONCE STA Stop: 12/21/23 16:40 Last Admin: 12/21/23 17:02 Dose: 1,000 mg Sodium Chloride (Sodium Chloride) 1,000 mls @ 1,000 mls/hr IV BOLUS ONE Stop: 12/21/23 17:38 Last Admin: 12/21/23 17:10 Dose: 1,000 mls/hr Remdesivir 200 mg/ Sodium (Chloride) 250 mls @ 250 mls/hr IV ONCE ONE Stop: 12/21/23 19:38 Last Admin: 12/21/23 20:40 Dose: 250 mls/hr MAGNESIUM SULFATE IN WATER (Magnesium Sulf 2 G/50 Ml Bag) 2 gm in 50 mls @ 25 mls/hr IV ONCE ONE Stop: 12/22/23 10:15 Last Admin: 12/22/23 08:59 Dose: 25 mls/hr Remdesivir 100 mg/ Sodium (Chloride) 100 mls @ 200 mls/hr IV ONCE ONE Stop: 12/22/23 12:29 Last Admin: 12/22/23 12:34 Dose: 200 mls/hr Non-Formulary Medication (Dapagliflozin Propanediol [Farxiga]) 10 mg PO QPM [facility] Last Admin: 12/21/23 20:59 Dose: Not Given Opioid Naive vs. Tolerant Does Patient Take Opioids?: No Is Patient Opioid Naive?: Yes What is Opioid Naive?: *Opioid Naive implies the patient is not already taking opioids or not chronically receiving opioids on a daily basis. *PRN dosing is not "usually" associated with tolerance. *Patients are at higher risk of over-sedation and aspiration. Is Patient Opioid Tolerant?: No What is Opioid Tolerant?: *Opioid Tolerance implies less than the expected response to an opioid. *Acquired tolerance is defined by the patient taking 60mg of oral morphine daily (or equianalgesic dose of another opioid) for 1 week or more. *Often associated with chronic pain. *May take more than usual dose to achieve desired pain control. Review of Systems Constitutional: Reports Fever, Fatigue and Weakness Head: Reports Normocephalic and Atraumatic Throat: Reports Sore Throat Cardiovascular: Denies Chest pain, Chest Pressure or Edema Respiratory: Reports Cough and Shortness of air Gastrointestinal: Denies Nausea, Vomiting, Diarrhea, Abdominal pain or Melena Genitourinary: Denies Dysuria or Frequency Musculoskeletal: Reports Other (+muscle aches) Dermatologic: Denies Rashes Neurological: Denies Headache, Dizziness or Syncope Physical examination Most Recent Vital Signs: Most Recent Vital Signs Temperature 98.5 F 12/22/23 10:00 Temperature Source Temporal Artery Scan 12/22/23 10:00 Temperature Source Temporal Artery Scan 12/21/23 18:15 Pulse Rate 70 12/22/23 10:00 Respiratory Rate 17 12/22/23 10:00 Blood Pressure 98/48 L 12/22/23 10:00 Blood Pressure Mean 64 12/22/23 10:00 Blood Pressure Left Arm 132/70 12/21/23 20:04 Blood Pressure Location Right Arm 12/22/23 10:00 Blood Pressure Position Supine 12/22/23 10:00 O2 Sat by Pulse Oximetry 96 12/22/23 10:00 Oxygen Delivery Method Room Air 12/22/23 11:00 Height 5 ft 1 in 12/21/23 20:04 Weight 70.6 kg 12/21/23 20:04 Telemetry Type Bedside Monitor 12/22/23 07:00 Telemetry Monitoring Continues 12/22/23 07:00 Telemetry Heart Rate 78 12/22/23 07:00 Telemetry SPO2 96 12/22/23 07:00 EKG ME Interval 0.28 H 12/22/23 01:00 EKG QRS Interval 0.06 12/22/23 01:00 Telemetry Strip Reading SR w/ 1st degree AVB 12/22/23 07:00 Appearance: Positive No Apparent Distress and Alert and Oriented x3 Skin: Positive [place], Warm and Good Turgor; Negative Rashes HEENT: Positive Normocephalic and Atraumatic Neck: Positive Supple and Midline Trachea Chest/Lungs: Positive Clear to Auscultation Bilaterally; Negative Rales, Rhonci or Wheezes Heart: Positive RRR GI/: Positive Soft, Nontender, Bowel Sounds Normal and No Distention Extremities: Negative Edema Neurological: Positive Cranial Nerves Intact, Oriented and Muscle Strength 5/5 in Upper and Lower Extremities Bilaterally Psychiatric: Positive Oriented x4, Appropriate Mood and Appropriate Affect Labs This Visit Labs This Visit: Labs This Visit 12/21/23 12/21/23 12/21/23 15:22 16:50 19:24 WBC 6.63 RBC 3.98 L Hgb 10.8 L Hct 33.8 L MCV 84.9 MCH 27.1 MCHC 32.0 RDW Coeff of Chary 14.6 Plt Count 309 Immature Gran % (Auto) 0.8 Neut % (Auto) 75.3 H Lymph % (Auto) 10.6 [place] % (Auto) 11.0 H Eos % (Auto) 1.7 Baso % (Auto) 0.6 Neut # (Auto) 5.0 Lymph # (Auto) 0.7 [place] # (Auto) 0.7 Eos # (Auto) 0.1 Baso # (Auto) 0.0 Immature Gran # (Auto) 0.1 ESR 45 H PT 9.8 INR 0.94 Sodium 134.7 Potassium 4.22 Chloride 98.3 Carbon Dioxide 27.0 Anion Gap 13.62 BUN 23.5 H Creatinine 0.99 Estimated GFR (MDRD) 55.00 BUN/Creatinine Ratio 23.73 Glucose 129.4 H Lactic Acid 1.21 Calcium 9.66 Magnesium Total Bilirubin 0.29 AST 38.0 H ALT 28.3 Alkaline Phosphatase 92.2 Total Protein 8.06 Albumin 4.75 Globulin 3.31 Albumin/Globulin Ratio 1.43 Procalcitonin < 0.05 Influ A Molecular Assay Negative by naat Influ B Molecular Assay Negative by naat RSV Antigen Negative by naat SARS CoV-2 RNA Rapid NORMA Positive H 12/22/23 05:13 WBC 4.38 L RBC 3.39 L Hgb 9.3 L Hct 29.1 L MCV 85.8 MCH 27.4 MCHC 32.0 RDW Coeff of Chary 14.7 Plt Count 261 Immature Gran % (Auto) 0.7 Neut % (Auto) 63.7 Lymph % (Auto) 18.0 [place] % (Auto) 15.1 H Eos % (Auto) 1.6 Baso % (Auto) 0.9 Neut # (Auto) 2.8 Lymph # (Auto) 0.8 [place] # (Auto) 0.7 Eos # (Auto) 0.1 Baso # (Auto) 0.0 Immature Gran # (Auto) 0.0 ESR PT 9.9 INR 0.95 Sodium 134.9 Potassium 4.30 Chloride 103.3 Carbon Dioxide 23.4 Anion Gap 12.50 BUN 21.5 H Creatinine 0.77 Estimated GFR (MDRD) 73.00 BUN/Creatinine Ratio 27.92 Glucose 156.0 H Lactic Acid Calcium 8.88 Magnesium 1.78 Total Bilirubin 0.18 L AST 40.6 H ALT 24.7 Alkaline Phosphatase 71.0 Total Protein 6.56 Albumin 3.75 Globulin 2.81 Albumin/Globulin Ratio 1.33 Procalcitonin Influ A Molecular Assay Influ B Molecular Assay RSV Antigen SARS CoV-2 RNA Rapid NORMA Microbiology This Visit 12/21/23 15:22 Throat Group A Strep Molecular Assay - Final Imaging Imaging: EXAM: FRONTAL VIEW OF THE CHEST. HISTORY: Fever, chills, COVID-19 positive. COMPARISON: Chest radiograph 10/29/2023. FINDINGS:Atherosclerotic calcifications of the aorta. Normal heart size. Patchy ground-glass opacities at the lung bases bilaterally. Stable calcified granulomas in the lungs and mediastinum. No visible pleural effusion or pneumothorax. No acute osseous abnormality. Multilevel degenerative spondylosis. Degenerative changes of the shoulders. IMPRESSION: Subtle bibasilar opacities concerning for pneumonia. Calcified atherosclerosis. Review Statement Review Statement: I have independently reviewed and interpreted the labs/EKGs/imaging that were ordered by the ER provider. I have reviewed all outside records that are available currently in our EMR including imaging/notes/labs from previous visits. Plan Plan: 1. Covid pneumonia - Viral, will not treat with antibiotics at this time. On RA, if she becomes hypoxic will add decadron. Otherwise treat with remdesivir daily. 2. Hypotension - Pt had her using morning meds. Will hold hypertensives going forward except for her coreg tonight. Fluids ordered. 3. Hyperlipidemia - Cont home meds 4. GERD - Cont home meds 5. DMt2 - Diabetic diet. Accuchecks achs, humalog ss ordered. DVT Prophylaxis: Lovenox Time Spent: Greater than 80 minutes spent with patient, 50% of the time spent with this patient was devoted to counseling and coordination of care. [facility] minutes spent discussing advance care planning. Admit to: Obs flipped to inpatient today Discussed Plan of Care with Dr. Sampson Mann. Medications Medication Orders: Medications Ordered Category Date Time Status 0.9 % Sodium Chloride [Saline Flush] Meds 12/21/23 16:39 Active 1 syr IVF PRN PRN Acetaminophen [Tylenol] Meds 12/21/23 18:39 Active 650 mg PO Q4H PRN Albuterol Sulfate [Ventolin Hfa] Meds 12/21/23 21:00 Active 2 puff IH Q4H PRN Amlodipine Besylate [Norvasc] Meds 12/22/23 09:00 Hold 10 mg PO DAILY Aspirin [Aspirin EC] Meds 12/22/23 07:30 Active 81 mg PO DAILYWM2 Atorvastatin Calcium [Lipitor] Meds 12/21/23 20:30 Active 40 mg PO BEDTIME Carvedilol [Coreg] Meds 12/21/23 21:00 Active 12.5 mg PO BIDWM2 Clonidine HCl [Catapres] Meds 12/21/23 21:00 Hold 0.1 mg PO BID Empaglifozin [Jardiance] Meds 12/22/23 09:00 Active 25 mg PO DAILY Gabapentin [Neurontin] Meds 12/21/23 21:00 Active 300 mg PO BEDTIME Hydrochlorothiazide Meds 12/22/23 09:00 Active 25 mg PO QAM Isosorbide Mononitrate [Imdur] Meds 12/22/23 09:00 Active 30 mg PO QAM Lisinopril [Zestril] Meds 12/22/23 09:00 Hold 40 mg PO DAILY Montelukast Sodium [Singulair] Meds 12/22/23 09:00 Active 10 mg PO DAILY Omeprazole [Prilosec] Meds 12/22/23 09:00 Active 40 mg PO QDAC2 Ondansetron HCl/Pf [Zofran 4 mg/2 ml] Meds 12/21/23 18:39 Active 4 mg IVP Q6H PRN Remdesivir [Veklury] 100 mg Meds 12/22/23 12:00 Active 0.9 % Sodium Chloride [Sodium Chloride 100Ml] 100 ml IV ONCE Remdesivir [Veklury] 100 mg Meds 12/23/23 12:00 Active 0.9 % Sodium Chloride [Sodium Chloride 100Ml] 100 ml IV ONCE Ringers Lactated Solution [Lactated Ringers] 1,000 ml Meds 12/22/23 10:00 Active IV 100 mls/hr Ropinirole HCl [Requip] Meds 12/21/23 21:00 Active 0.5 mg PO BEDTIME Sitagliptin Phosphate [Januvia] Meds 12/22/23 09:00 Active 100 mg PO DAILY
[2023-12-22] MEDS: VEKLURY 100 MG in SODIUM CHLORIDE 100ML 100 ML IV ONE (12:34)
[2023-12-22] MEDS: LOVENOX SUBCUT SCH (12:34)
[2023-12-22] MEDS: TYLENOL PO PRN (15:01)
[2023-12-22] MEDS: HUMALOG (10 ML VIAL) SUBCUT PRN (17:12)
[2023-12-23 05:22] LABS: BASOPHILS % (AUTO) 0.2 % (0.0-3.0); EOSINOPHILS # (AUTO) 0.1 K/ul (0.0-0.7); EOSINOPHILS % (AUTO) 2.6 % (0.0-7.0); HEMATOCRIT 30.3 % (37.0-47.0); HEMOGLOBIN 9.6 g/dl (12.0-16.0); IMMATURE GRANULOCYTE % (AUTO) 0.6 % (0.0-5.0); LYMPHOCYTES # (AUTO) 1.2 K/uL (0.60-3.4); MEAN CORPUSCULAR HEMOGLOBIN 27.1 pg (27.0-31.0); MEAN CORPUSCULAR HGB CONC 31.7 (31.8-35.4); MEAN CORPUSCULAR VOLUME 85.6 fl (81.0-99.0); MONOCYTES # (AUTO) 0.6 K/uL (0.4-2.0); MONOCYTES % (AUTO) 12.5 (0-10); NEUTROPHILS # (AUTO) 3.1 K/ul (2.0-6.9); NEUTROPHILS % (AUTO) 61.1 % (42.2-75.2); PLATELET COUNT 265 10^3/uL (140-440); RDW COEFFICIENT OF VARIATION 14.6 % (11.6-14.8); RED BLOOD COUNT 3.54 10^6/ul (4.20-5.40); WHITE BLOOD COUNT 5.04 K/ul (4.6-10.2)
[2023-12-23 05:32] LABS: ALBUMIN 3.68 g/dL (3.5-5.0); ALKALINE PHOSPHATASE 83.2 U/L (53-141); ASPARTATE AMINO TRANSFERASE 35.2 U/L (14-36); BILIRUBIN,TOTAL 0.19 mg/dL (0.2-1.3); BLOOD UREA NITROGEN 22.7 mg/dL (7-17); CALCIUM 8.76 mg/dL (8.4-10.2); CARBON DIOXIDE 25.2 mmol/L (22-30.0); CHLORIDE 100.8 mmol/L (98-107); CREATININE 0.67 mg/dL (0.60-1.30); GLUCOSE 117.3 mg/dL (74-106); MAGNESIUM 1.84 mg/dL (1.6-2.3); POTASSIUM 4.28 mmol/L (3.5-5.1); PROTHROMBIN TIME 10.3 SEC (9.3-11.0); SODIUM 131.3 mmol/L (134.5-145); TOTAL PROTEIN 6.57 g/dL (6.3-8.2)
[2023-12-23 05:38] VITALS: TEMP 98.6
[2023-12-23] MEDS: ZOFRAN 4 MG/2 ML IVP PRN (06:35)
[2023-12-23 09:09] VITALS: PULSE 68; RESP 18
--- NOTE | 2023-12-23 10:32 | DCSUM ---
Admission Date Admission Date: 12/21/23 Discharge Date Discharge Date: 12/23/23 Admission Diagnosis Admission Diagnosis: 1. Covid pneumonia Discharge Diagnosis Discharge Diagnosis: 1. Covid pneumonia 2. Hypotension - resolved 3. Hyperlipidemia 4. GERD 5. DMt2 Hospital Provider Hospital Provider: SHARON PARKER PA-C, [facility] Primary Care Physician Primary Care Physician: HARJIT MAYS Summary of History and Physical Summary of History and Physical: Patient is a 73 year old female with pmhx of hyperlipidemia, DMT2, COPD, hypertension, chronic back pain, stress incontinence, anemia, osteoarthritis who presented to ER with 1 day history of worsening cough, sore throat, sob, and high fever. Patient denies history of covid. She has been on RA. ERP felt with her comorbidities and CXR showing pneumonia patient would benefit from being observed overnight. Labs and vitals unremarkable. Pt states she lives with her ex . This morning patient's BP noted to be low. Pt is asymptomatic. Has been ambulatory to the bathroom. Still on RA. Remdesivir started last night. Pt started on some fluids. Hospital Course Subjective: Patient did well from a COVID standpoint. She has been on room air throughout her entire hospitalization. She has a productive cough but otherwise has been ambulatory without any significant shortness of breath. No fever. She completed 3 doses of remdesivir. No decadron as she was not hypoxic. Her discharge was delayed due to hypotension on 12/21. Her blood pressure medications were held. It is better on the day of discharge. We discussed holding her amlodipine, lisinopril, and clonidine until follow-up with PCP. Will continue her other medications as normal. Patient will monitor her blood pressure at home. COVID isolation discussed. Follow-up with worsening symptoms. Appearance: Pleasant, No Apparent Distress and Alert HEENT: MMM and Supple CVS: Other (RRR) Abdomen: Soft, Non-Tender and No Distention Respiratory: No Accessory Muscle Use Extremities: No Edema Additional Findings: On RA Vital Signs: Most Recent Vital Signs Temperature 98.6 F 12/23/23 05:37 Temperature Source Temporal Artery Scan 12/23/23 05:37 Temperature Source Temporal Artery Scan 12/21/23 18:15 Pulse Rate 68 12/23/23 08:00 Respiratory Rate 18 12/23/23 08:00 Blood Pressure 126/58 L 12/23/23 05:37 Blood Pressure Mean 80 12/23/23 05:37 Blood Pressure Left Arm 132/70 12/21/23 20:04 Blood Pressure Location Right Arm 12/23/23 05:37 Blood Pressure Position Sitting 12/23/23 05:37 O2 Sat by Pulse Oximetry 94 L 12/23/23 05:37 Oxygen Delivery Method Room Air 12/23/23 10:00 Height 5 ft 1 in 12/21/23 20:04 Weight 70.6 kg 12/21/23 20:04 Telemetry Type Remote Telemetry 12/23/23 07:00 Telemetry Monitoring Continues 12/23/23 07:00 Telemetry Heart Rate 66 12/23/23 07:00 Telemetry SPO2 94 12/23/23 07:00 EKG AL Interval 0.29 H 12/23/23 01:00 EKG QRS Interval 0.24 H 12/23/23 07:00 EKG QT Interval 0.08 L 12/23/23 07:00 Telemetry Strip Reading SR with 1st deg AVB 12/23/23 07:00 Imaging: EXAM: FRONTAL VIEW OF THE CHEST. HISTORY: Fever, chills, COVID-19 positive. COMPARISON: Chest radiograph 10/29/2023. FINDINGS: Atherosclerotic calcifications of the aorta. Normal heart size. Patchy ground-glass opacities at the lung bases bilaterally. Stable calcified granulomas in the lungs and mediastinum. No visible pleural effusion or pneumothorax. No acute osseous abnormality. Multilevel degenerative spondylosis. Degenerative changes of the shoulders. IMPRESSION: Subtle bibasilar opacities concerning for pneumonia. Calcified atherosclerosis. Lab Results Last 24 Hours: 12/23/23 12/21/23 05:16 16:50 WBC 5.04 RBC 3.54 L Hgb 9.6 L Hct 30.3 L MCV 85.6 MCH 27.1 MCHC 31.7 L RDW Coeff of Chary 14.6 Plt Count 265 Immature Gran % (Auto) 0.6 Neut % (Auto) 61.1 Lymph % (Auto) 23.0 [place] % (Auto) 12.5 H Eos % (Auto) 2.6 Baso % (Auto) 0.2 Neut # (Auto) 3.1 Lymph # (Auto) 1.2 [place] # (Auto) 0.6 Eos # (Auto) 0.1 Baso # (Auto) 0.0 Immature Gran # (Auto) 0.0 PT 10.3 INR 0.99 Sodium 131.3 L Potassium 4.28 Chloride 100.8 Carbon Dioxide 25.2 Anion Gap 9.58 BUN 22.7 H Creatinine 0.67 Estimated GFR (MDRD) 86.00 BUN/Creatinine Ratio 33.88 Glucose 117.3 H Calcium 8.76 Magnesium 1.84 Total Bilirubin 0.19 L AST 35.2 ALT 26.0 Alkaline Phosphatase 83.2 C-Reactive Prot, Quant 23 H Total Protein 6.57 Albumin 3.68 Globulin 2.89 Albumin/Globulin Ratio 1.27 Discharge Instructions Discharge Planning: Discharge Planning > [address] Sampson Mann. Discharge Medications: Medications at Discharge (Home Meds & RX) Discharge Plan Discharge Discharge Orders: Discharge Patient (ONCE); Ordered 12/23/23 Ordered By: SHARON PARKER Activity Restrictions/Additional Instructions: DISCHARGE TO HOME COVID ISOLATION FOR 5-10 DAYS DX: COVID STOP CLONIDINE, AMLODIPINE, AND LISINOPRIL UNTIL PCP FOLLOW UP DUE TO LOW BLOOD PRESSURES MONITOR YOUR BLOOD PRESSURE AT HOME AND WRITE IT DOWN TO TAKE TO YOUR PCP, THEY MAY WANT TO RESTART YOUR MEDS AT LOWER DOSES IF BLOOD PRESSURE GOES UP DIET HEART HEALTHY ACTIVITY: TOLERATED PLEASE CALL TO RESCHEDULE YOUR PAIN MANAGEMENT PROCEDURE. Instructions: Upper Respiratory Infection (ED), COVID-19 (Coronavirus Disease 2019) (GEN) Patient Disposition: HOME SELF-CARE Prescriptions: Continued aspirin 81 mg tablet,delayed release (DR/EC) 81 mg PO QDAY atorvastatin 40 mg tablet 40 mg PO QHS carvedilol [Coreg] 12.5 mg tablet 12.5 mg PO BID Rx Instructions: must administer with a meal/food dapagliflozin propanediol [Farxiga] 10 mg tablet 10 mg PO QPM gabapentin 300 mg capsule 300 mg PO QHS hydrochlorothiazide 25 mg tablet 25 mg PO QAM isosorbide mononitrate 30 mg tablet extended release 24 hr 30 mg PO QAM Januvia 100 mg tablet 100 mg PO QDAY montelukast 10 mg tablet 10 mg PO QDAY omeprazole 40 mg capsule,delayed release(DR/EC) 40 mg PO QDAY ropinirole 0.5 mg tablet 0.5 mg PO QHS Rx Instructions: administer 1-3 hours before bedtime Trulicity 0.75 mg/0.5 mL pen injector 0.75 mg subcut QWEEK Rx Instructions: tuesdays albuterol sulfate 90 mcg/actuation HFA aerosol inhaler 2 puff INHALATION BID Patient Comments: INHALE 2 PUFFS EVERY 4 OHURS NEEDED FOR WHEEZING Discontinued amlodipine 10 mg tablet 10 mg PO QDAY clonidine HCl 0.1 mg tablet 0.1 mg PO BID lisinopril 40 mg tablet 40 mg PO QDAY Did you review [place] BAKERY CHEF for ALL controlled substances?: Not Applicable Discussed opioids are addictive and Narcan is available by prescription or from pharmacy.: No Condition: Stable Referrals: HARJIT MAYS [Primary Care Provider] - 01/04/24 9:45 am
[2023-12-23] MEDS: VEKLURY 100 MG in SODIUM CHLORIDE 100ML 100 ML IV ONE (10:40)
[2023-12-23 11:28] VITALS: BP 138/65
[2023-12-23] MEDS ORDERED: VEKLURY 100 MG in SODIUM CHLORIDE 100ML 100 ML IV ONE (12:00)
== END 2023-12-23 11:50 | disposition home or self-care (01) | DRG 871 ==
LOC: SCU 15:06 → ED 15:06 → OBSVTOIN 18:06 → SCU 19:40 → INTOOBSV 12-22 11:40
PROVIDERS: ADMIT Hospitalist; ATTEND Physician Assistant

== ENCOUNTER 2024-05-21 22:15 | Observation (INO) ==
--- NOTE | 2024-05-21 22:34 | ED.PDOC ---
General ED Provider: Dr. CAILIN MCKEON MD Chief Complaint: Hypertension Stated Complaint: Patient is a 73-year-old female who presented with complaint of headache, chest pain, cough, lightheadedness, abdominal pain, nausea, vomiting and elevated blood pressures. The patient states that she has been feeling this way for past 3 weeks, she has been in the ER few days ago with similar symptoms but they are more pronounced now specially the lightheadedness and elevated blood pressures. Patient denies any tingling numbness or weakness of the extremities. Patient denies any urinary symptoms. Patient states that she has been taking her medications regularly. Patient denies any other symptoms. Time Seen by Provider: 05/21/24 22:19 Information Source: Patient Primary Care Provider: HARJIT MAYS Nursing and Triage Documentation Reviewed and Agree: Yes What is Opioid Naive?: *Opioid Naive implies the patient is not already taking opioids or not chronically receiving opioids on a daily basis. *PRN dosing is not "usually" associated with tolerance. *Patients are at higher risk of over-sedation and aspiration. What is Opioid Tolerant?: *Opioid Tolerance implies less than the expected response to an opioid. *Acquired tolerance is defined by the patient taking 60mg of oral morphine daily (or equianalgesic dose of another opioid) for 1 week or more. *Often associated with chronic pain. *May take more than usual dose to achieve desired pain control. Review of Systems Review Of Systems Constitutional: Reports Sweats Eyes: Reports No symptoms Ears, Nose, Mouth, Throat: Reports Nose discharge Respiratory: Reports Cough; Denies Shortness of Breath Cardiac: Reports Chest pain GI: Reports Abdominal pain, Nausea and Vomiting : Reports No symptoms Musculoskeletal: Reports No symptoms Skin: Reports No symptoms Neurological: Reports Headache and Other (DIZZINESS) Endocrine: Reports No symptoms Hematologic/Lymphatic: Reports No symptoms All Other Systems: Reviewed and Negative [facility] Medical History COPD (chronic obstructive pulmonary disease) J44.9 - Chronic obstructive pulmonary disease, unspecified (ICD-10) Myocardial infarct I21.9 - Acute myocardial infarction, unspecified (ICD-10) Low serum sodium R79.89 - Other specified abnormal findings of blood chemistry (ICD-10) Accelerated hypertension I10 - Essential (primary) hypertension (ICD-10) Acute hyponatremia E87.1 - Hypo-osmolality and hyponatremia (ICD-10) Hypertension I10 - Essential (primary) hypertension (ICD-10) 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 - Malignant (primary) neoplasm, unspecified (ICD-10) Anemia D64.9 - Anemia, unspecified (ICD-10) Diabetes mellitus A1C 6.53, previously 8.84 E11.9 - Type 2 diabetes mellitus without complications (ICD-10) Urinary tract infection N39.0 - Urinary tract infection, site not specified (ICD-10) Family History Other No known health problems Social History Smoking and tobacco status: Former smoker Tobacco: How many years used: 5 Second hand smoke exposure: Yes Alcohol intake: never Substance use type: does not use Traci/voodoo: [employer] traci needs: No Agree to transfusion: Yes Adopted: No Caregiver/support person: Yes Household members: significant other Housing: house Lives independently: Yes Highest education level completed: 8th grade Financial difficulty paying for basics: not applicable service: No Current occupational status: disabled Current occupational exposures/hazards: No Pets and animals: Yes Leisure activites: other History of recent travel: No Sexually active: No Do you think of yourself as: straight/heterosexual Current gender identity: female Seatbelt use: never Helmet use: No Drives intoxicated or rides with intoxicated form setter/driver: No Water heater temperature set < 120 degrees: Yes Working smoke detector in home: Yes Fire extinguisher in home: No Carbon monoxide detector in home: Yes Firearms in home: No Surgical History History of bladder surgery Z98.890 - Other specified postprocedural states (ICD-10) History of cholecystectomy Z90.49 - Acquired absence of other specified parts of digestive tract (ICD- 10) History of hip replacement Z96.649 - Presence of unspecified artificial hip joint (ICD-10) H/O foot surgery Z98.890 - Other specified postprocedural states (ICD-10) H/O tubal ligation Z98.51 - Tubal ligation status (ICD-10) History of nasal surgery Z98.890 - Other specified postprocedural states (ICD-10) (11/19/15) [place], [place] History of musculoskeletal system surgery "growth behind femur" Z98.890 - Other specified postprocedural states (ICD-10) Status post hysterectomy Z90.710 - Acquired absence of both cervix and uterus (ICD-10) Cataract extraction and insertion of intraocular lens x2 Female Reproductive History Menstrual Hx Hysterectomy: Yes Hx Tubal Ligation: Yes Physical Exam Physical Exam Appearance: Reports Well-appearing, No pain distress and Well-nourished Eyes: Reports LEXI, EOMI and Conjunctiva clear ENT: Reports Ears normal, Nose normal and Oropharynx normal Respiratory: Reports Airway patent, Breath sounds clear and Breath sounds equal Cardiovascular: Reports RRR, Pulses normal and No murmur GI/: Reports Soft and Nontender Musculoskeletal: Reports Normal strength, No edema and No calf tenderness Skin: Reports Warm and Normal color Neurological: Reports Sensation intact, Motor intact, Reflexes intact, Cranial nerves intact, Alert and Oriented Psychiatric: Reports Anxious Interpretation EKG Interpretation EKG Interpretation By: ED Physician Time of EKG #1: 22:39 Rate: Normal (79) Rhythm: Sinus (Sinus rhythm with first-degree AV block) Ectopy: None ST Segment: Other (Q waves in inferior leads, nonspecific ST-T changes in the inferior leads.) Radiology Interpretation Radiology Interpretation By: Radiologist Radiology Results: No acute changes Exam Interpreted: CT Scan (Noncontrast CT of the head with multiple reformats. HISTORY: Dizziness. COMPARISON: CT head 01/14/2021. FINDINGS: No evidence of acute infarction, hemorrhage, or mass. Mild brain volume loss and chronic microvascular changes of the white matter. Calcifications of the carotid siphons bi) Critical Care Note Critical Care Note Total Critical Care Time (mins): 36 Course Course 05/22/24 04:55 05/22/24 04:55 Orders, Labs, Meds: Lab Review 05/21/24 05/21/24 22:45 23:20 WBC 6.44 RBC 3.84 L Hgb 10.3 L Hct 30.7 L MCV 79.9 L MCH 26.8 L MCHC 33.6 RDW Coeff of Chary 14.3 Plt Count 284 Immature Gran % (Auto) 0.6 Neut % (Auto) 60.6 Lymph % (Auto) 27.0 [place] % (Auto) 8.7 Eos % (Auto) 2.6 Baso % (Auto) 0.5 Neut # (Auto) 3.9 Lymph # (Auto) 1.7 [place] # (Auto) 0.6 Eos # (Auto) 0.2 Baso # (Auto) 0.0 Immature Gran # (Auto) 0.0 Sodium 122.2 L Potassium 4.22 Chloride 87.3 L Carbon Dioxide 24.8 Anion Gap 14.32 BUN 19.4 H Creatinine 0.68 Estimated GFR (MDRD) 85.00 BUN/Creatinine Ratio 28.52 Glucose 135.3 H Lactic Acid 1.68 Calcium 9.39 Magnesium 1.35 L Total Bilirubin 0.43 AST 39.4 H ALT 28.1 Alkaline Phosphatase 88.0 Total Creatine Kinase 232.3 H CK-MB (CK-2) 10.900 H* CK-MB (CK-2) % 4.6900 Troponin I < 0.012 NT-Pro-B Natriuret Pep 370 H Total Protein 7.69 Albumin 4.42 Globulin 3.27 Albumin/Globulin Ratio 1.35 Lipase 202.8 Influ A Molecular Assay Negative by naat Influ B Molecular Assay Negative by naat SARS CoV-2 RNA Rapid NORMA Negative Orders Category Date Time Status ADMIT OBSERVATION [PLACE PATIENT OBSERVATION] .TO ADMISSION 05/22/24 02:49 Active MEDSURG (MONITORED BED) EKG-(ED ONLY) Stat CARDIO 05/21/24 22:30 Completed TELEMETRY MONITORING TELE CARE 05/22/24 02:49 Active CBC W/ AUTO DIFF Q3D LAB 05/23/24 06:00 Ordered CBC W/ AUTO DIFF Stat LAB 05/21/24 22:45 Completed CBC W/ AUTO DIFF Stat LAB 05/22/24 04:55 Completed CMP [COMPREHENSIVE METABOLIC PANEL] Q3D LAB 05/23/24 06:00 Ordered CMP [COMPREHENSIVE METABOLIC PANEL] Stat LAB 05/21/24 22:45 Completed CMP [COMPREHENSIVE METABOLIC PANEL] Stat LAB 05/22/24 04:55 Completed COVID [SARS COV-2 RNA RAPID NORMA] Stat LAB 05/21/24 23:20 Completed CREATINE KINASE Stat LAB 05/21/24 22:45 Completed FLU A & B MOLECULAR [FLU A/B MOLECULAR] Stat LAB 05/21/24 23:20 Completed LACTIC ACID Stat LAB 05/21/24 22:45 Completed LIPASE Stat LAB 05/21/24 22:45 Completed MAGNESIUM Stat LAB 05/21/24 22:45 Completed NT-PROBNP(ED) Stat LAB 05/21/24 22:45 Completed TROPONIN I Stat LAB 05/21/24 22:45 Completed Hydralazine HCl Meds 05/22/24 00:12 Discontinued 10 mg IVP ONCE STA Hydroxyzine HCl [Atarax] Meds 05/21/24 22:30 Discontinued 25 mg PO ONCE STA Magnesium Sulfate in Water [Magnesium Sulf 2 G/50 ml Meds 05/21/24 23:15 Discontinued Bag] 2 gm in 50 ml IV ONCE Ondansetron HCl/Pf [Zofran Sdv] Meds 05/21/24 22:30 Discontinued 4 mg IVP ONCE ONE Sodium Chloride 0.9% [Sodium Chloride] 1,000 ml Meds 05/21/24 23:15 Discontinued IV BOLUS CHEST, 1V AP ONLY Stat RADS 05/21/24 22:[address] HEAD W/O CONTRAST Stat RADS 05/22/24 00:12 Completed Medications Discontinued Medications Generic Name Dose Route Start Last Admin Trade Name Freq PRN Reason Stop Dose Admin Hydralazine HCl 10 mg 05/22/24 00:12 05/22/24 00:29 Hydralazine Hcl 20 Mg/Ml Sdv IVP 05/22/24 00:13 10 mg ONCE STA Administration Hydroxyzine HCl 25 mg 05/21/24 22:30 05/21/24 22:36 Hydroxyzine Hcl 25 Mg Tablet PO 05/21/24 22:31 25 mg ONCE STA Administration Sodium Chloride 1,000 mls @ 1,000 mls/hr 05/21/24 23:15 05/21/24 23:35 Sodium Chloride IV 05/22/24 00:14 1,000 mls/hr BOLUS ONE Administration MAGNESIUM SULFATE IN WATER 2 gm in 50 mls @ 25 mls/hr 05/21/24 23:15 05/21/24 23:28 Magnesium Sulf 2 G/50 Ml Bag IV 05/22/24 01:14 25 mls/hr ONCE ONE Administration Ondansetron HCl 4 mg 05/21/24 22:30 05/21/24 22:36 Ondansetron Hcl/Pf 4 Mg/2 Ml Sdv IVP 05/21/24 22:31 4 mg ONCE ONE Administration Vital Signs: Temp Pulse Resp BP Pulse Ox 05/22/24 02:10 88 16 132/58 L 98 05/22/24 00:10 184/92 H 05/21/24 23:10 148/78 H 05/21/24 22:17 98.7 F 79 16 175/82 H 98 Differential diagnosis include but not limited to viral syndrome, flu, COVID, gastroenteritis, TIA, vertigo, CVA, migraine headache, hyponatremia, hypernatremia, anxiety, panic attack, STEMI, NSTEMI, costochondritis, esophagitis. ER course: Patient is a 73-year-old female who presented with multiple complaints. Patient had elevated blood pressures on initial evaluation by the EMS but by the time she reached the ER her blood pressures had improved. All the patient's symptoms have been present for few weeks now. Patient was administered hydralazine, Zofran. The labs were reviewed and patient's sodium was 122 and his magnesium was 1.3. Patient was started on IV fluids and magnesium was replaced. Patient had elevated CK-MB of 10.3, EKG is negative, troponins are normal and EKG shows sinus rhythm with first-degree AV block, negative for STEMI. Patient's blood pressures have improved. HAIR Risk Score HAIR Risk Score: Risk Score Odds of by 30D 0 0.1 (0.1-0.2) 1 0.3 (0.2-0.3) 2 0.4 (0.3-0.5) 3 0.7 (0.6-0.9) 4 1.2 (1.0-1.5) 5 2.2 (1.9-2.6) 6 3.0 (2.5-3.6) 7 4.8 (3.8-6.1) Discharge Plan Discharge Patient Disposition: ADMITTED INPATIENT Discharge Problem: Hyponatremia, Hypomagnesemia, Elevated CK-MB level Did you review [place] CARDIAC CATH RN for ALL controlled substances?: Not Applicable ED Provider: CAILIN MCKEON Condition: Stable
[2024-05-21] MEDS: ATARAX PO STA (22:36)
[2024-05-21] MEDS: ZOFRAN SDV IVP ONE (22:36)
[2024-05-21 22:55] LABS: BASOPHILS % (AUTO) 0.5 % (0.0-3.0); EOSINOPHILS # (AUTO) 0.2 K/ul (0.0-0.7); EOSINOPHILS % (AUTO) 2.6 % (0.0-7.0); HEMATOCRIT 30.7 % (37.0-47.0); HEMOGLOBIN 10.3 g/dl (12.0-16.0); IMMATURE GRANULOCYTE % (AUTO) 0.6 % (0.0-5.0); LYMPHOCYTES # (AUTO) 1.7 K/uL (0.60-3.4); MEAN CORPUSCULAR HEMOGLOBIN 26.8 pg (27.0-31.0); MEAN CORPUSCULAR HGB CONC 33.6 (31.8-35.4); MEAN CORPUSCULAR VOLUME 79.9 fl (81.0-99.0); MONOCYTES # (AUTO) 0.6 K/uL (0.4-2.0); MONOCYTES % (AUTO) 8.7 (0-10); NEUTROPHILS # (AUTO) 3.9 K/ul (2.0-6.9); NEUTROPHILS % (AUTO) 60.6 % (42.2-75.2); PLATELET COUNT 284 10^3/uL (140-440); RDW COEFFICIENT OF VARIATION 14.3 % (11.6-14.8); RED BLOOD COUNT 3.84 10^6/ul (4.20-5.40); WHITE BLOOD COUNT 6.44 K/ul (4.6-10.2)
[2024-05-21 23:03] LABS: ALANINE AMINOTRANSFERASE 28.1 U/L (0-35); ALBUMIN 4.42 g/dL (3.5-5.0); ASPARTATE AMINO TRANSFERASE 39.4 U/L (14-36); BILIRUBIN,TOTAL 0.43 mg/dL (0.2-1.3); BLOOD UREA NITROGEN 19.4 mg/dL (7-17); CALCIUM 9.39 mg/dL (8.4-10.2); CARBON DIOXIDE 24.8 mmol/L (22-30.0); CHLORIDE 87.3 mmol/L (98-107); CREATINE KINASE 232.3 U/L (30-135); CREATININE 0.68 mg/dL (0.60-1.30); GLUCOSE 135.3 mg/dL (74-106); LIPASE 202.8 U/L (23-300); MAGNESIUM 1.35 mg/dL (1.6-2.3); POTASSIUM 4.22 mmol/L (3.5-5.1); SODIUM 122.2 mmol/L (134.5-145); TOTAL PROTEIN 7.69 g/dL (6.3-8.2)
[2024-05-21 23:15] LABS: TROPONIN I < 0.012 ng/ml (0.0000-0.120)
[2024-05-21] MEDS: MAGNESIUM SULF 2 G/50 ML BAG 2 GM/50 ML PIGGYBACK IV ONE (23:28)
[2024-05-21] MEDS: SODIUM CHLORIDE 1,000 ML IV ONE (23:35)
[2024-05-21 23:43] LABS: SARS COV-2 RNA RAPID NAAT NEGATIVE (NEGATIVE)
[2024-05-21 23:44] LABS: MOLECULAR FLU A NEGATIVE BY NAAT (NEGATIVE); MOLECULAR FLU B NEGATIVE BY NAAT (NEGATIVE)
--- NOTE | 2024-05-21 23:55 | DI ---
EXAM: FRONTAL VIEW OF THE CHEST. HISTORY: Shortness of breath. COMPARISON: Chest radiograph 03/10/2024. FINDINGS: Aortic calcifications. Mild cardiomegaly. No acute consolidation. No visible pleural effusion or pneumothorax. No acute osseous abnormality. Degenerative changes of the spine. Osseous demineralization. IMPRESSION: No acute finding in the chest.
[2024-05-22] MEDS: HYDRALAZINE HCL IVP STA (00:29)
--- NOTE | 2024-05-22 01:11 | CT ---
EXAM: CT HEAD WITHOUT CONTRAST TECHNIQUE: Noncontrast CT of the head with multiple reformats. HISTORY: Dizziness. COMPARISON: CT head 01/14/2021. FINDINGS: No evidence of acute infarction, hemorrhage, or mass. Mild brain volume loss and chronic microvascular changes of the white matter. Calcifications of the carotid siphons bilaterally. No brain herniation. Patent basilar cisterns. Partially empty sella. Ventricles are proportional to brain volume. No acute osseous abnormality. Degenerative change of the temporomandibular joints. Bilateral lens replacements of the globes. IMPRESSION: No acute intracranial abnormality. Chronic findings as above. All CT scans are performed using dose optimization techniques as appropriate to the performed exam an d include at least one of the following: Automated exposure control, adjustment of the mA and/or kV according t o size, and the use of iterative reconstruction technique.
[2024-05-22 04:11] VITALS: BMI 29.4
[2024-05-22 05:02] LABS: BASOPHILS % (AUTO) 0.6 % (0.0-3.0); EOSINOPHILS # (AUTO) 0.2 K/ul (0.0-0.7); EOSINOPHILS % (AUTO) 2.2 % (0.0-7.0); HEMATOCRIT 29.6 % (37.0-47.0); HEMOGLOBIN 9.8 g/dl (12.0-16.0); IMMATURE GRANULOCYTE % (AUTO) 0.4 % (0.0-5.0); LYMPHOCYTES % (AUTO) 29.4 (10.0-50.0); MEAN CORPUSCULAR HEMOGLOBIN 26.7 pg (27.0-31.0); MEAN CORPUSCULAR HGB CONC 33.1 (31.8-35.4); MEAN CORPUSCULAR VOLUME 80.7 fl (81.0-99.0); MONOCYTES # (AUTO) 0.6 K/uL (0.4-2.0); MONOCYTES % (AUTO) 8.9 (0-10); NEUTROPHILS % (AUTO) 58.5 % (42.2-75.2); PLATELET COUNT 293 10^3/uL (140-440); RDW COEFFICIENT OF VARIATION 14.3 % (11.6-14.8); RED BLOOD COUNT 3.67 10^6/ul (4.20-5.40); WHITE BLOOD COUNT 6.77 K/ul (4.6-10.2)
[2024-05-22 05:17] LABS: ALANINE AMINOTRANSFERASE 25.7 U/L (0-35); ALBUMIN 3.97 g/dL (3.5-5.0); ALKALINE PHOSPHATASE 82.9 U/L (53-141); ASPARTATE AMINO TRANSFERASE 30.5 U/L (14-36); BILIRUBIN,TOTAL 0.31 mg/dL (0.2-1.3); CALCIUM 9.11 mg/dL (8.4-10.2); CARBON DIOXIDE 24.1 mmol/L (22-30.0); CHLORIDE 92.5 mmol/L (98-107); CREATININE 0.64 mg/dL (0.60-1.30); GLUCOSE 116.9 mg/dL (74-106); POTASSIUM 4.34 mmol/L (3.5-5.1); SODIUM 124.4 mmol/L (134.5-145); TOTAL PROTEIN 7.1 g/dL (6.3-8.2)
[2024-05-22] MEDS: SODIUM CHLORIDE 1,000 ML IV SCH (09:11)
[2024-05-22] MEDS ORDERED: TYLENOL PO PRN (11:50)
[2024-05-22] MEDS ORDERED: MEDROL DOSEPAK PO SCH (12:30)
[2024-05-22] MEDS: FLONASE NAS SCH (13:40)
[2024-05-22] MEDS: JANUVIA PO SCH (13:41)
[2024-05-22] MEDS: CELEBREX PO SCH (13:41)
[2024-05-22] MEDS: ULTRAM PO PRN (13:41)
[2024-05-22] MEDS: LIPITOR PO SCH (13:41)
[2024-05-22] MEDS: NORVASC PO SCH (13:41)
[2024-05-22] MEDS: ASPIRIN EC PO SCH (13:41)
[2024-05-22] MEDS: SINGULAIR PO SCH (13:41)
[2024-05-22] MEDS ORDERED: VENTOLIN HFA IH PRN (14:00)
[2024-05-22] MEDS: SODIUM CHLORIDE PO SCH (16:35)
[2024-05-22] MEDS: NEURONTIN PO SCH (16:35)
--- NOTE | 2024-05-22 17:12 | PCM ---
Date of Service Date Seen by Provider: 05/22/24 Time Seen by Provider: 09:30 Admit Day/Time Admission Date: 05/22/24 Admission Time: 12:15 Reason for Admission Chief Complaint: HIGH BP Hospital Provider Hospital Provider: CAILIN ROBLES MD, [facility] Primary Care Physician Primary Care Physician: HARJIT MAYS History of Present Illness History of Present Illness: 73 yo female presented to the ER with complaints of chest pain, congestion, lightheadedness, nausea and vomiting. States she has been sick over the last 3 weeks and can't get over the congestion. Has been taking OTC medications without relief of symptoms. Has not been on any antibiotics or steroids. She was seen in this ER on 05/13 with negative work-up then. Reports high BP and lightheadedness the last 2 days. Had been taking her medications as prescribed. In ER, BP was 184/92. She was given a dose of hydralazine which lowered BP appropriately. Found to have a sodium of 124. Mag 1.3. CKMB 10.9 CK 232. Troponins negative x 2 . No acute changes on EKG. At this time, patient states chest pain is resolved. Does report weakness and continued congestion. Discussed low sodium level and reports it is normally low and is encouraged to not drink too much water by her PCP. Admitted to med/surg observation. Case Discussed With Case Discussed With: Patient's case was discussed with the ER Physicians, Dr. Robles. 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 - Malignant (primary) neoplasm, unspecified (ICD-10) Anemia D64.9 - Anemia, unspecified (ICD-10) Diabetes mellitus A1C 6.53, previously 8.84 E11.9 - Type 2 diabetes mellitus without complications (ICD-10) Urinary tract infection N39.0 - Urinary tract infection, site not specified (ICD-10) Surgical History History of bladder surgery Z98.890 - Other specified postprocedural states (ICD-10) History of cholecystectomy Z90.49 - Acquired absence of other specified parts of digestive tract (ICD- 10) History of hip replacement Z96.649 - Presence of unspecified artificial hip joint (ICD-10) H/O foot surgery Z98.890 - Other specified postprocedural states (ICD-10) H/O tubal ligation Z98.51 - Tubal ligation status (ICD-10) History of nasal surgery Z98.890 - Other specified postprocedural states (ICD-10) (11/19/15) [place], [place] History of musculoskeletal system surgery "growth behind femur" Z98.890 - Other specified postprocedural states (ICD-10) Status post hysterectomy Z90.710 - Acquired absence of both cervix and uterus (ICD-10) Cataract extraction and insertion of intraocular lens x2 Family History Other No known health problems Social History Smoking and tobacco status: Former smoker Tobacco: How many years used: 5 Second hand smoke exposure: Yes Alcohol intake: never Substance use type: does not use Traci/restorationism: Holiness Special traci needs: No Agree to transfusion: Yes Adopted: No Caregiver/support person: Yes Household members: significant other Housing: house Lives independently: Yes Highest education level completed: 8th grade Financial difficulty paying for basics: not applicable service: No Current occupational status: disabled Current occupational exposures/hazards: No Pets and animals: Yes Leisure activites: other History of recent travel: No Sexually active: No Do you think of yourself as: straight/heterosexual Current gender identity: female Seatbelt use: never Helmet use: No Drives intoxicated or rides with intoxicated truss driver helper: No Water heater temperature set < 120 degrees: Yes Working smoke detector in home: Yes Fire extinguisher in home: No Carbon monoxide detector in home: Yes Firearms in home: No Allergies Allergies Allergy/AdvReac Type Severity Reaction Status Date / Time diclofenac (From Voltaren) AdvReac Severe sick Verified 05/21/24 23:07 Iodinated Contrast Media AdvReac Unknown unknown Verified 05/21/24 23:07 sulfamethoxazole (From AdvReac "vaginal Verified 05/21/24 23:07 Bactrim) pain" trimethoprim (From Bactrim) AdvReac "vaginal Verified 05/21/24 23:07 pain" Current Medications Home Medications Acetaminophen (Acetaminophen 325 Mg Tablet) 650 mg PO Q4H PRN PRN Reason: Mild Pain Albuterol Sulfate (Albuterol Sulfate 8 Gm Inhaler) 2 puff IH RTQ4H PRN PRN Reason: Wheezing Amlodipine Besylate (Amlodipine Besylate 5 Mg Tablet) 10 mg PO DAILY [facility] Last Admin: 05/22/24 13:41 Dose: 10 mg Aspirin (Aspirin 81 Mg Tablet.) 81 mg PO DAILY [facility] Last Admin: 05/22/24 13:41 Dose: 81 mg Atorvastatin Calcium (Atorvastatin Calcium 20 Mg Tablet) 80 mg PO DAILY [facility] Last Admin: 05/22/24 13:41 Dose: 80 mg Celecoxib (Celecoxib 100 Mg Capsule) 200 mg PO DAILY [facility] Last Admin: 05/22/24 13:41 Dose: 200 mg Fluticasone Propionate (Fluticasone Propionate 16 Gm Nasal [place]) 1 spray ANA Q12H [facility] Last Admin: 05/22/24 13:40 Dose: 1 spray Gabapentin (Gabapentin 300 Mg Capsule) 300 mg PO TID [facility] Last Admin: 05/22/24 16:35 Dose: 300 mg Sodium Chloride (Sodium Chloride) 1,000 mls @ 100 mls/hr IV .Q10H [facility] Last Admin: 05/22/24 09:11 Dose: 100 mls/hr Isosorbide Mononitrate (Isosorbide Mononitrate 30 Mg Tab.Er.24h) 30 mg PO QAM [facility] Methylprednisolone (Methylprednisolone 4 Mg Tab.Ds.Pk) 8 mg PO 0630 [facility]; Taper Stop: 05/27/24 15:29 Montelukast Sodium (Montelukast Sodium 10 Mg Tablet) 10 mg PO DAILY [facility] Last Admin: 05/22/24 13:41 Dose: 10 mg Omeprazole (Omeprazole 20 Mg Capsule.) 40 mg PO 0630 [facility] Sitagliptin Phosphate (Sitagliptin Phosphate 50 Mg Tablet) 100 mg PO DAILY [facility] Last Admin: 05/22/24 13:41 Dose: 100 mg Sodium Chloride (Sodium Chloride 1 Gm Tablet) 1 gm PO TID [facility] Last Admin: 05/22/24 16:35 Dose: 1 gm Tramadol HCl (Tramadol Hcl 50 Mg Tablet) 50 mg PO BID PRN PRN Reason: Pain Last Admin: 05/22/24 13:41 Dose: 50 mg aspirin 81 mg tablet,delayed release 81 mg PO QDAY 09/30/23 [History Confirmed 05/21/24] carvedilol 12.5 mg tablet (Coreg) 12.5 mg PO BID 09/30/23 [History Confirmed 03/07/24] dapagliflozin propanediol 10 mg tablet (Farxiga) 10 mg PO QPM 09/30/23 [History Confirmed 03/07/24] hydrochlorothiazide 25 mg tablet 25 mg PO QAM 09/30/23 [History Confirmed 05/21/24] isosorbide mononitrate 30 mg tablet,extended release 24 hr 30 mg PO QAM 09/30/23 [History Confirmed 05/21/24] montelukast 10 mg tablet 10 mg PO QDAY 09/30/23 [History Confirmed 05/21/24] omeprazole 40 mg capsule,delayed release 40 mg PO QDAY 09/30/23 [History Confirmed 05/21/24] ropinirole 0.5 mg tablet 0.5 mg PO QHS 09/30/23 [History Confirmed 03/07/24] sitagliptin phosphate 100 mg tablet (Januvia) 100 mg PO QDAY 09/30/23 [History Confirmed 05/21/24] albuterol sulfate 90 mcg/actuation aerosol inhaler 2 puff inhalation BID PRN shortness of breath or wheezing 10/14/23 [History Confirmed 05/22/24] amlodipine 10 mg tablet 10 mg PO DAILY 01/22/24 [History Confirmed 05/21/24] atorvastatin 80 mg tablet 80 mg PO DAILY 01/22/24 [History Confirmed 05/21/24] benzonatate 200 mg capsule 200 mg PO BID-TID PRN cough #30 caps 01/22/24 [Rx Confirmed 03/07/24] celecoxib 200 mg capsule 200 mg PO DAILY 01/22/24 [History Confirmed 05/21/24] dulaglutide 1.5 mg/0.5 mL subcutaneous pen injector (Trulicity) 1.5 mg subcut WEEKLY 01/22/24 [History Confirmed 05/21/24] fluticasone propionate 50 mcg/actuation nasal spray,suspension (Flonase Allergy Relief) 1 spray intranasal Q12H #16 grams 01/22/24 [Rx Confirmed 05/21/24] tramadol 50 mg tablet 50 mg PO BID PRN pain #60 tabs 04/13/24 [Rx Confirmed 05/21/24] gabapentin 300 mg capsule 300 mg PO TID #90 caps 05/17/24 [Rx Confirmed 05/21/24] Opioid Naive vs. Tolerant Does Patient Take Opioids?: Yes Is Patient Opioid Naive?: No What is Opioid Naive?: *Opioid Naive implies the patient is not already taking opioids or not chronically receiving opioids on a daily basis. *PRN dosing is not "usually" associated with tolerance. *Patients are at higher risk of over-sedation and aspiration. Is Patient Opioid Tolerant?: No What is Opioid Tolerant?: *Opioid Tolerance implies less than the expected response to an opioid. *Acquired tolerance is defined by the patient taking 60mg of oral morphine daily (or equianalgesic dose of another opioid) for 1 week or more. *Often associated with chronic pain. *May take more than usual dose to achieve desired pain control. Review of Systems Constitutional: Reports Fatigue and Weakness Head: Reports Normocephalic Eyes: Reports No symptoms Ears: Reports No symptoms Nose: Reports Congestion Mouth: Reports No symptoms Throat: Reports No symptoms Cardiovascular: Reports Chest pain Respiratory: Reports Cough Gastrointestinal: Reports Nausea and Vomiting (x1) Genitourinary: Reports No Symptoms Musculoskeletal: Reports No symptoms Endocrine: Reports No symptoms Hematology: Reports No symptoms Immunology: Reports No symptoms Neurological: Reports No symptoms Psychiatric: Reports No symptoms Physical examination Most Recent Vital Signs: Most Recent Vital Signs Temperature 97.4 F L 05/22/24 14:00 Temperature Source Temporal Artery Scan 05/22/24 14:00 Temperature Source Oral 05/21/24 22:17 Pulse Rate 73 05/22/24 14:00 Respiratory Rate 18 05/22/24 14:00 Blood Pressure 147/64 H 05/22/24 14:00 Blood Pressure Mean 91 05/22/24 14:00 Blood Pressure Left Arm 137/71 05/22/24 03:35 Blood Pressure Location Right Arm 05/22/24 14:00 Blood Pressure Position Supine 05/22/24 03:35 O2 Sat by Pulse Oximetry 99 05/22/24 14:00 Oxygen Delivery Method Room Air 05/22/24 15:23 Height 5 ft 1 in 05/22/24 03:35 Weight 70.7 kg 05/22/24 03:35 Telemetry Type Remote Telemetry 05/22/24 13:00 Telemetry Monitoring Continues 05/22/24 13:00 Telemetry Heart Rate 70 05/22/24 13:00 Telemetry SPO2 94 12/23/23 07:00 EKG KS Interval 0.24 H 05/22/24 13:00 EKG QRS Interval 0.08 05/22/24 13:00 Telemetry Strip Reading SR w/ 1st degree avb 05/22/24 13:00 Appearance: Positive No Apparent Distress and Alert and Oriented x3 Skin: Positive Warm, Good Turgor and Good Color HEENT: Positive Normocephalic and Atraumatic Neck: Positive Supple and Midline Trachea Chest/Lungs: Positive Symmetrical With Equal Breath Sounds, Clear to Auscultation Bilaterally and Good Air Movement all 4 Lung [place] Heart: Positive RRR and Pulses Normal GI/: Positive Soft, Nontender, Bowel Sounds Normal and No Distention Musculoskeletal: Positive Not Examined Extremities: Positive Intact Peripheral Pulses, Stable Joints Without Laxity and Good ROM in All Joints Neurological: Positive Sensation Intact, Motor intact, Reflexes Intact, Alert, Oriented and Other (generalized weakness) Labs This Visit Labs This Visit: Labs This Visit 05/21/24 05/21/24 05/22/24 22:45 23:20 04:55 WBC 6.44 6.77 RBC 3.84 L 3.67 L Hgb 10.3 L 9.8 L Hct 30.7 L 29.6 L MCV 79.9 L 80.7 L MCH 26.8 L 26.7 L MCHC 33.6 33.1 RDW Coeff of Chary 14.3 14.3 Plt Count 284 293 Immature Gran % (Auto) 0.6 0.4 Neut % (Auto) 60.6 58.5 Lymph % (Auto) 27.0 29.4 Hoke % (Auto) 8.7 8.9 Eos % (Auto) 2.6 2.2 Baso % (Auto) 0.5 0.6 Neut # (Auto) 3.9 4.0 Lymph # (Auto) 1.7 2.0 Hoke # (Auto) 0.6 0.6 Eos # (Auto) 0.2 0.2 Baso # (Auto) 0.0 0.0 Immature Gran # (Auto) 0.0 0.0 Sodium 122.2 L 124.4 L Potassium 4.22 4.34 Chloride 87.3 L 92.5 L Carbon Dioxide 24.8 24.1 Anion Gap 14.32 12.14 BUN 19.4 H 16.0 Creatinine 0.68 0.64 Estimated GFR (MDRD) 85.00 91.00 BUN/Creatinine Ratio 28.52 25.00 Glucose 135.3 H 116.9 H Lactic Acid 1.68 Calcium 9.39 9.11 Magnesium 1.35 L 2.04 Total Bilirubin 0.43 0.31 AST 39.4 H 30.5 ALT 28.1 25.7 Alkaline Phosphatase 88.0 82.9 Total Creatine Kinase 232.3 H CK-MB (CK-2) 10.900 H* CK-MB (CK-2) % 4.6900 Troponin I < 0.012 NT-Pro-B Natriuret Pep 370 H Total Protein 7.69 7.10 Albumin 4.42 3.97 Globulin 3.27 3.13 Albumin/Globulin Ratio 1.35 1.26 Lipase 202.8 Influ A Molecular Assay Negative by naat Influ B Molecular Assay Negative by naat SARS CoV-2 RNA Rapid NORMA Negative Imaging Imaging: EXAM: FRONTAL VIEW OF THE CHEST. HISTORY: Shortness of breath. COMPARISON: Chest radiograph 03/10/2024. FINDINGS: Aortic calcifications. Mild cardiomegaly. No acute consolidation. No visible pleural effusion or pneumothorax. No acute osseous abnormality. Degenerative changes of the spine. Osseous demineralization. IMPRESSION: No acute finding in the chest. EKG Interpretation EKG Interpretation: No acute changes. 1st degree block Review Statement Review Statement: I have independently reviewed and interpreted the labs/EKGs/imaging that were ordered by the ER provider. I have reviewed all outside records that are available currently in our EMR including imaging/notes/labs from previous visits. Plan Plan: 1. Acute on Chronic Hyponatremia - 1L bolus in ER, continue NS@100mL/hr, salt tabs TID, repeat bmp this evening 2. Chest Pain - Resolved, serial troponins negative, likely due to uncontrolled HTN, mildly elevated CKMB and CK trend and monitor 3. Hypomagnesemia - Resolved, replacement given 4. Sinus Congestion - no fever or green discharge, antibiotic not indicated, medrol dose patricio as directed 5. Hypertension - uncontrolled on admission, continue home medications 6. DM2 - chronic, ADA diet, continue home medications DVT Prophylaxis: ASA, Ambulation Time Spent: Greater than 80 minutes spent with patient, 50% of the time spent with this patient was devoted to counseling and coordination of care. [facility] minutes spent discussing advance care planning. Disposition: Admit to: Med/Surg Observation Full Code Discussed Plan of Care with Dr. Rodrigue Mann. Medications Medication Orders: Medications Ordered Category Date Time Status Acetaminophen [Tylenol] Meds 05/22/24 11:50 Active 650 mg PO Q4H PRN Albuterol Sulfate [Ventolin Hfa] Meds 05/22/24 14:00 Active 2 puff IH RTQ4H PRN Amlodipine Besylate [Norvasc] Meds 05/22/24 12:30 Active 10 mg PO DAILY Aspirin [Aspirin EC] Meds 05/22/24 12:30 Active 81 mg PO DAILY Atorvastatin Calcium [Lipitor] Meds 05/22/24 12:30 Active 80 mg PO DAILY Celecoxib [Celebrex] Meds 05/22/24 12:30 Active 200 mg PO DAILY Fluticasone Propionate [Flonase] Meds 05/22/24 12:30 Active 1 spray ANA Q12H Gabapentin [Neurontin] Meds 05/22/24 15:00 Active 300 mg PO TID Isosorbide Mononitrate [Imdur] Meds 05/23/24 09:00 Active 30 mg PO QAM Methylprednisolone [Medrol Dosepak] Meds 05/22/24 12:30 Active 8 mg PO 0630 Montelukast Sodium [Singulair] Meds 05/22/24 12:30 Active 10 mg PO DAILY Omeprazole [Prilosec] Meds 05/23/24 06:30 Active 40 mg PO 0630 Sitagliptin Phosphate [Januvia] Meds 05/22/24 12:30 Active 100 mg PO DAILY Sodium Chloride Meds 05/22/24 15:00 Active 1 gm PO TID Sodium Chloride 0.9% [Sodium Chloride] 1,000 ml Meds 05/22/24 09:30 Active IV 100 mls/hr Tramadol HCl [Ultram] Meds 05/22/24 12:07 Active 50 mg PO BID PRN
[2024-05-22 18:23] LABS: BLOOD UREA NITROGEN 19.5 mg/dL (7-17); CALCIUM 8.74 mg/dL (8.4-10.2); CARBON DIOXIDE 23.7 mmol/L (22-30.0); CHLORIDE 91.8 mmol/L (98-107); CREATININE 0.82 mg/dL (0.60-1.30); GLUCOSE 187.4 mg/dL (74-106); POTASSIUM 4.43 mmol/L (3.5-5.1); SODIUM 124.6 mmol/L (134.5-145)
[2024-05-22 19:01] LABS: CREATINE KINASE MB 7.73 ng/ml (0.0-2.38)
[2024-05-23 04:54] LABS: BASOPHILS % (AUTO) 0.5 % (0.0-3.0); EOSINOPHILS # (AUTO) 0.3 K/ul (0.0-0.7); EOSINOPHILS % (AUTO) 4.5 % (0.0-7.0); HEMOGLOBIN 9.5 g/dl (12.0-16.0); IMMATURE GRANULOCYTE % (AUTO) 0.3 % (0.0-5.0); LYMPHOCYTES # (AUTO) 1.8 K/uL (0.60-3.4); LYMPHOCYTES % (AUTO) 29.9 (10.0-50.0); MEAN CORPUSCULAR HEMOGLOBIN 27.1 pg (27.0-31.0); MEAN CORPUSCULAR HGB CONC 32.8 (31.8-35.4); MEAN CORPUSCULAR VOLUME 82.9 fl (81.0-99.0); MONOCYTES # (AUTO) 0.6 K/uL (0.4-2.0); MONOCYTES % (AUTO) 10.1 (0-10); NEUTROPHILS # (AUTO) 3.4 K/ul (2.0-6.9); NEUTROPHILS % (AUTO) 54.7 % (42.2-75.2); PLATELET COUNT 282 10^3/uL (140-440); RDW COEFFICIENT OF VARIATION 14.5 % (11.6-14.8); WHITE BLOOD COUNT 6.16 K/ul (4.6-10.2)
[2024-05-23 05:09] LABS: ALANINE AMINOTRANSFERASE 23.8 U/L (0-35); ALBUMIN 3.59 g/dL (3.5-5.0); ALKALINE PHOSPHATASE 71.6 U/L (53-141); ASPARTATE AMINO TRANSFERASE 31.2 U/L (14-36); BILIRUBIN,TOTAL 0.24 mg/dL (0.2-1.3); CALCIUM 8.71 mg/dL (8.4-10.2); CARBON DIOXIDE 25.1 mmol/L (22-30.0); CHLORIDE 96.9 mmol/L (98-107); CREATININE 0.73 mg/dL (0.60-1.30); GLUCOSE 114.4 mg/dL (74-106); MAGNESIUM 1.69 mg/dL (1.6-2.3); POTASSIUM 4.86 mmol/L (3.5-5.1); SODIUM 128.2 mmol/L (134.5-145); TOTAL PROTEIN 6.31 g/dL (6.3-8.2)
[2024-05-23 05:12] VITALS: RESP 17
[2024-05-23] MEDS: PRILOSEC PO SCH (05:31)
[2024-05-23] MEDS ORDERED: MEDROL DOSEPAK PO SCH (07:30)
[2024-05-23] MEDS: MAGNESIUM SULF 2 G/50 ML BAG 2 GM/50 ML PIGGYBACK IV ONE (09:08)
[2024-05-23] MEDS: MEDROL DOSEPAK PO SCH (09:08)
[2024-05-23] MEDS: IMDUR PO SCH (09:09)
[2024-05-23 09:52] VITALS: BP 140/62; PULSE 72; TEMP 97.2
--- NOTE | 2024-05-23 12:13 | DCSUM ---
Admission Date Admission Date: 05/22/24 Discharge Date Discharge Date: 05/23/24 Admission Diagnosis Admission Diagnosis: 1. Acute on Chronic Hyponatremia 2. Chest Pain 3. Hypomagnesemia Discharge Diagnosis Discharge Diagnosis: 1. Acute on Chronic Hyponatremia -improved, at baseline 2. Chest Pain - Resolved, serial troponins negative, likely due to uncontrolled HTN 3. Hypomagnesemia - improved, replacement given 4. Sinus Congestion - antibiotic not indicated, medrol dose jaden as directed 5. Hypertension - continue home medications 6. DM2 - chronic, continue home medications Hospital Provider Hospital Provider: [facility] Primary Care Physician: HARJIT MAYS Summary of History and Physical Summary of History and Physical: 73 yo female presented to the ER with complaints of chest pain, congestion, lightheadedness, nausea and vomiting. States she has been sick over the last 3 weeks and can't get over the congestion. Has been taking OTC medications without relief of symptoms. Has not been on any antibiotics or steroids. She was seen in this ER on 05/13 with cc of abd pain, chest pain, bodyaches, cough, facial swelling, and fever with negative work-up then. Reports high BP and lightheadedness the last 2 days. Had been taking her medications as prescribed. In ER, BP was 184/92. She was given a dose of hydralazine which lowered BP appropriately. Found to have a sodium of 124. Mag 1.3. CKMB 10.9 CK 232. Troponins negative. No acute changes on EKG. CXR negative. CT head negative. At this time, patient states chest pain is resolved. Does report weakness and continued congestion. Discussed low sodium level and reports it is normally low and is encouraged to not drink too much water by her PCP. Admitted to med/surg observation. Hospital Course Subjective: Patient had no chest pain once admitted. BP improved without further intervention. Repeat trop negative. Sodium levels improved with sodium tabs. Advised to hold HCTZ until pcp f/u as it can contribute to hyponatremia. Mag replaced. Pt prescribed medrol dose pack for ongoing URI symptoms with some relief. She is requesting discharge to home. Encouraged to f/u closely with pcp. Return with worsening symptoms. Medrol dose pack and salt tabs prescribed upon discharge. Appearance: Pleasant, No Apparent Distress and Alert HEENT: MMM and Supple CVS: No Murmur Abdomen: Soft, Non-Tender and No Distention Respiratory: No Accessory Muscle Use Extremities: No Edema Vital Signs: Most Recent Vital Signs Temperature 97.2 F L 05/23/24 09:51 Temperature Source Temporal Artery Scan 05/23/24 09:51 Temperature Source Oral 05/21/24 22:17 Pulse Rate 72 05/23/24 09:51 Respiratory Rate 17 05/23/24 09:51 Blood Pressure 140/62 05/23/24 09:51 Blood Pressure Mean 88 05/23/24 09:51 Blood Pressure Left Arm 137/71 05/22/24 03:35 Blood Pressure Location Left Arm 05/23/24 09:51 Blood Pressure Position Supine 05/23/24 05:10 O2 Sat by Pulse Oximetry 99 05/23/24 09:51 Oxygen Delivery Method Room Air 05/23/24 11:59 Height 5 ft 1 in 05/22/24 03:35 Weight 70.7 kg 05/22/24 03:35 Telemetry Type Remote Telemetry 05/23/24 01:00 Telemetry Monitoring Continues 05/23/24 01:00 Telemetry Heart Rate 65 05/23/24 01:00 Telemetry SPO2 94 12/23/23 07:00 EKG RI Interval 0.29 H 05/23/24 01:00 EKG QRS Interval 0.06 05/23/24 01:00 Telemetry Strip Reading SINUS RHYTHM W/ 1ST AVB 05/23/24 01:00 Imaging: EXAM: FRONTAL VIEW OF THE CHEST. HISTORY: Shortness of breath. COMPARISON: Chest radiograph 03/10/2024. FINDINGS:Aortic calcifications. Mild cardiomegaly. No acute consolidation. No visible pleural effusion or pneumothorax. No acute osseous abnormality. Degenerative changes of the spine. Osseous demineralization. IMPRESSION: No acute finding in the chest. EXAM: CT HEAD WITHOUT CONTRAST TECHNIQUE: Noncontrast CT of the head with multiple reformats HISTORY: Dizziness. COMPARISON: CT head 01/14/2021. FINDINGS: No evidence of acute infarction, hemorrhage, or mass. Mild brain volume loss and chronic microvascular changes of the white matter. Calcifications of the carotid siphons bilaterally. No brain herniation. Patent basilar cisterns. Partially empty sella. Ventricles are proportional to brain volume. No acute osseous abnormality. Degenerative change of the temporomandibular joints. Bilateral lens replacements of the globes. IMPRESSION: No acute intracranial abnormality. Chronic findings as above. Lab Results Last 24 Hours: 05/23/24 05/22/24 04:23 18:06 WBC 6.16 RBC 3.50 L Hgb 9.5 L Hct 29.0 L MCV 82.9 MCH 27.1 MCHC 32.8 RDW Coeff of Chary 14.5 Plt Count 282 Immature Gran % (Auto) 0.3 Neut % (Auto) 54.7 Lymph % (Auto) 29.9 Stone % (Auto) 10.1 H Eos % (Auto) 4.5 Baso % (Auto) 0.5 Neut # (Auto) 3.4 Lymph # (Auto) 1.8 Stone # (Auto) 0.6 Eos # (Auto) 0.3 Baso # (Auto) 0.0 Immature Gran # (Auto) 0.0 Sodium 128.2 L 124.6 L Potassium 4.86 4.43 Chloride 96.9 L 91.8 L Carbon Dioxide 25.1 23.7 Anion Gap 11.06 13.53 BUN 17.0 19.5 H Creatinine 0.73 0.82 Estimated GFR (MDRD) 78.00 68.00 BUN/Creatinine Ratio 23.28 23.78 Glucose 114.4 H D 187.4 H D Calcium 8.71 8.74 Magnesium 1.69 Total Bilirubin 0.24 AST 31.2 ALT 23.8 Alkaline Phosphatase 71.6 Total Creatine Kinase 237.0 H CK-MB (CK-2) 7.730 H* CK-MB (CK-2) % 3.2600 Troponin I < 0.012 Total Protein 6.31 Albumin 3.59 Globulin 2.72 Albumin/Globulin Ratio 1.31 Discharge Instructions Discharge Planning: Discharge Planning > [address] Sampson Mann. Discharge Medications: Medications at Discharge (Home Meds & RX) aspirin 81 mg tablet,delayed release 81 mg PO QDAY 09/30/23 carvedilol 12.5 mg tablet (Coreg) 12.5 mg PO BID 09/30/23 dapagliflozin propanediol 10 mg tablet (Farxiga) 10 mg PO QPM 09/30/23 isosorbide mononitrate 30 mg tablet,extended release 24 hr 30 mg PO QAM 09/30/23 montelukast 10 mg tablet 10 mg PO QDAY 09/30/23 omeprazole 40 mg capsule,delayed release 40 mg PO QDAY 09/30/23 ropinirole 0.5 mg tablet 0.5 mg PO QHS 09/30/23 sitagliptin phosphate 100 mg tablet (Januvia) 100 mg PO QDAY 09/30/23 albuterol sulfate 90 mcg/actuation aerosol inhaler 2 puff inhalation BID PRN shortness of breath or wheezing 10/14/23 amlodipine 10 mg tablet 10 mg PO DAILY 01/22/24 atorvastatin 80 mg tablet 80 mg PO DAILY 01/22/24 celecoxib 200 mg capsule 200 mg PO DAILY 01/22/24 dulaglutide 1.5 mg/0.5 mL subcutaneous pen injector (Trulicity) 1.5 mg subcut WEEKLY 01/22/24 fluticasone propionate 50 mcg/actuation nasal spray,suspension (Flonase Allergy Relief) 1 spray intranasal Q12H #16 grams 01/22/24 tramadol 50 mg tablet 50 mg PO BID PRN pain #60 tabs 04/13/24 gabapentin 300 mg capsule 300 mg PO TID #90 caps 05/17/24 methylprednisolone 4 mg tablets in a dose pack (Medrol (Jaden)) See Rx Instructions PO .COMPLEX #21 ea 05/23/24 sodium chloride 1,000 mg soluble tablet 1,000 mg PO TID 5 days #15 tabs 05/23/24 Discharge Plan Discharge Discharge Orders: Discharge Patient (ONCE); Ordered 05/23/24 Ordered By: SHARON PARKER Activity Restrictions/Additional Instructions: DISCHARGE TO HOME F/U WITH PCP DX: HYPONATREMIA, URI PHARMACY: [facility] STEROID PACK AND SALT TABS SENT IN FOR YOU HOLD YOUR HYDROCHLOROTHIAZIDE UNTIL PCP FOLLOW UP (IT CAN CAUSE LOW SODIUM) Care Plan Goals: Problem: Elevated blood pressure Goal: Medically managed blood pressure Instructions: Monitor blood pressure as needed Medication for elevated blood pressure as directed Monitor for signs/symptoms of elevated blood pressure Patient Disposition: HOME SELF-CARE Prescriptions: New sodium chloride 1,000 mg Tablet,Soluble 1,000 mg PO TID 5 Days Qty: 15 0RF methylprednisolone [Medrol (Jaden)] 4 mg tablets,dose pack See Rx Instructions .ROUTE .COMPLEX Qty: 21 0RF Rx Instructions: orally per package directions Continued aspirin 81 mg tablet,delayed release (DR/EC) 81 mg PO QDAY carvedilol [Coreg] 12.5 mg tablet 12.5 mg PO BID Rx Instructions: must administer with a meal/food dapagliflozin propanediol [Farxiga] 10 mg tablet 10 mg PO QPM isosorbide mononitrate 30 mg tablet extended release 24 hr 30 mg PO QAM Januvia 100 mg tablet 100 mg PO QDAY montelukast 10 mg tablet 10 mg PO QDAY omeprazole 40 mg capsule,delayed release(DR/EC) 40 mg PO QDAY ropinirole 0.5 mg tablet 0.5 mg PO QHS Rx Instructions: administer 1-3 hours before bedtime tramadol 50 mg tablet 50 mg PO BID PRN (Reason: pain) Qty: 60 0RF gabapentin 300 mg capsule 300 mg PO TID Qty: 90 0RF albuterol sulfate 90 mcg/actuation HFA aerosol inhaler 2 puff INHALATION BID PRN (Reason: shortness of breath or wheezing) Patient Comments: INHALE 2 PUFFS EVERY 4 OHURS NEEDED FOR WHEEZING celecoxib 200 mg capsule 200 mg PO DAILY atorvastatin 80 mg tablet 80 mg PO DAILY amlodipine 10 mg tablet 10 mg PO DAILY Trulicity 1.5 mg/0.5 mL pen injector 1.5 mg subcut WEEKLY fluticasone propionate [Flonase Allergy Relief] 50 mcg/actuation spray,suspension 1 spray intranasal Q12H Qty: 16 0RF Rx Instructions: administer into each nostril Discontinued hydrochlorothiazide 25 mg tablet 25 mg PO QAM benzonatate 200 mg capsule 200 mg PO BID-TID PRN (Reason: cough) Qty: 30 0RF Did you review [place] [employer] for ALL controlled substances?: Not Applicable Discussed opioids are addictive and Narcan is available by prescription or from pharmacy.: No Condition: Stable Referrals: HARJIT MAYS [Primary Care Provider] - 05/25/24 9:15 am (labs on 05/25 Hospital Follow up on 06/02 9am)
== END 2024-05-23 13:00 | disposition home or self-care (01) ==
LOC: MEDSURG B 22:15 → ED 22:15 → MEDSURG B 05-22 03:33
PROVIDERS: ADMIT Hospitalist; ATTEND Physician Assistant
DX: R74.8 Abnormal levels of other serum enzymes; I10 Essential (primary) hypertension; Z79.899 Other long term (current) drug therapy; Z51.81 Encounter for therapeutic drug level monitoring; Z79.84 Long term (current) use of oral hypoglycemic drugs; J06.9 Acute upper respiratory infection, unspecified; R06.02 Shortness of breath; R07.9 Chest pain, unspecified; E83.42 Hypomagnesemia; E87.1 Hypo-osmolality and hyponatremia; E11.9 Type 2 diabetes mellitus without complications